=== PATIENT | male | born 1950 | race Caucasian/White ===

== ENCOUNTER 2017-07-13 11:11 | Inpatient (IN) ==
--- NOTE | 2017-07-13 11:34 | Emergency Department Note ---
SOB HPI - General Chief Complaint: Shortness of Breath/Dyspnea Stated Complaint: SOB/weight gain Time Seen by Provider: 07/13/17 11:18 Source: patient Mode of arrival: ambulatory Limitations: no limitations - History of Present Illness 66-year-old male with a history of increasing shortness of breath over the past week. He has a history of chronic venous insufficiency and ulcerations to his legs mentioned that wound care that he had some shortness of breath and they sent him to the ED.. He was admitted at [facility] on 04/17/17 they had switched him from his Lasix to spironolactone to his chronic renal failure stage II has been seen by his primary care provider Dr. Naima Ortega [place]. Was admitted on 07/18/16 for ischemic colitis, morbid obesity, stage II CKD venous insufficiency patient denies chest pain having increased edema to the lower extremities. Has had some weight gain. Patient is a poor historian - Related Data Home Medications Medication Instructions Recorded Confirmed Albuterol Sulfate [Ventolin] 2.5 mg NEB Q6 PRN 07/13/17 07/13/17 Dabigatran Etexilate Mesylate 150 mg PO BID 07/13/17 07/13/17 [Pradaxa] Gemfibrozil [Lopid] 600 mg PO BID 07/13/17 07/13/17 Liraglutide [Victoza 2-Jose] 0.6 mg SC DAILY 07/13/17 07/13/17 Lisinopril [Zestril] 40 mg PO DAILY 07/13/17 07/13/17 Metoprolol Tartrate [Lopressor] 50 mg PO BID 07/13/17 07/13/17 Nortriptyline [Pamelor] 4 capsule PO DAILY 07/13/17 07/13/17 Omeprazole 20 mg PO DAILY 07/13/17 07/13/17 Pentoxifylline [TRENtal] 400 mg PO TID 07/13/17 07/13/17 Potassium Chloride [Klor-Con 10] 10 meq PO Q6 07/13/17 07/13/17 Pravastatin Sodium [Pravachol] 80 mg PO DAILY 07/13/17 07/13/17 Spironolactone [Aldactone] 100 mg PO DAILY 07/13/17 07/13/17 Zolpidem [Ambien] 5 mg PO DAILY 07/13/17 07/13/17 amLODIPine [Norvasc] 10 mg PO DAILY 07/13/17 07/13/17 glipiZIDE [Glucotrol] 10 mg PO BID 07/13/17 07/13/17 metFORMIN HCL [Metformin HCl ER] 1,000 mg PO BID 07/13/17 07/13/17 traMADol [Ultram] 50 mg PO Q6 07/13/17 07/13/17 traZODone HCL [Desyrel] 2 tab PO DAILY 07/13/17 07/13/17 Allergies Allergy/AdvReac Type Severity Reaction Status Date / Time Amoxicillin [From Augmentin] Allergy Unknown Nausea Verified 07/13/17 11:18 clavulanic acid Allergy Unknown Nausea Verified 07/13/17 11:18 [From Augmentin] Review of Systems All systems ED: reviewed and negative except as stated. Constitutional: Denies: fever, chills Respiratory: Reports: shortness of breath, wheezes. Denies: cough, phlegm Gastrointestinal: Denies: abdominal pain Genitourinary: Denies: dysuria, frequency Musculoskeletal: Denies: back pain Integumentary: Denies: rash Neurological: Denies: headache Past Medical History - Past Medical History Medical history: Reports: atrial fibrillation, COPD, DM, hypertension Family history: Reports: CAD/[place] - Social History smoking status: Current every day smoker Packs per day: 0.5 Alcohol use: Reports: None Drug use: Reports: none Physical Exam Limitations: no limitations General appearance: alert Head: atraumatic Eye: Present: normal appearance, PERRL ENT: normal exam, normal oropharynx Neck: Present: normal inspection, full ROM Chest: Present: normal inspection, symmetric chest wall rise. Absent: tenderness Respiratory: Present: wheezes Cardiovascular: Present: regular rate, normal rhythm Abdominal: Present: soft, normal bowel sounds. Absent: distention, tenderness, guarding, rebound, rigidity Extremities: Present: normal inspection, pedal edema Back: Present: normal inspection Neurological: Present: alert, oriented X3, CN II-XII intact, motor sensory deficit Psychiatric: Present: normal affect, normal mood Skin: Present: other (Edema the lower extremities brown brawny induration) Course Vital Signs Temperature 96.2 F L 07/13/17 11:12 Pulse Rate 111 H 07/13/17 11:12 Respiratory Rate 22 07/13/17 11:12 Blood Pressure 159/91 07/13/17 11:12 Pulse Oximetry (%) 98 07/13/17 11:12 Temperature 96.2 F L 07/13/17 11:12 Pulse Rate 106 H 07/13/17 14:18 Respiratory Rate 24 H 07/13/17 13:47 Blood Pressure 159/94 07/13/17 14:18 Pulse Oximetry (%) 98 07/13/17 14:18 Shortness of Breath/Dyspnea - MDM Narrative Medical decision making narrative: chest xrays shows chf. given lasix 40 mg with good results [address] Razo consulted and pt to be admitted - Lab Data Result diagrams: 07/13/17 11:46 07/13/17 11:46 Lab Results 07/13/17 07/13/17 07/13/17 Range/Units 11:46 11:46 11:46 WBC 4.2 L (4.5-11.0) K/mcL RBC 4.85 (4.50-5.90) M/mcL Hgb 13.6 (13.5-16.5) g/dL Hct 41.3 (41.0-55.0) % MCV 85.1 (80.0-100.0) fL MCH 27.9 (26.0-34.0) pg MCHC 32.8 (31.0-36.0) g/dL RDW 17.3 H (11.5-14.5) % Plt Count 117 L (140-440) K/mcL MPV 9.3 (7.4-10.4) fL Gran % 73.0 (38.0-78.0) % Lymph % (Auto) 14.7 L (15.5-49.0) % Graham % (Auto) 7.2 (1.0-12.0) % Eos % (Auto) 4.5 (0.0-7.0) % Baso % (Auto) 0.6 (0.0-2.0) % Gran # 3.1 (1.8-8.0) K/mcL Lymph # (Auto) 0.6 L (1.5-4.8) K/mcL Graham # (Auto) 0.3 (0.1-0.9) K/mcL Eos # (Auto) 0.2 (0.0-0.7) K/mcL Baso # (Auto) 0 (0.0-0.3) K/mcL PT 13.8 (11.9-14.5) sec INR 1.1 (0.9-1.1) Sodium 139 (133-145) mmol/L Potassium 3.4 (3.3-5.1) mmol/L Chloride 99 (96-108) mmol/L Carbon Dioxide 27 (22-30) mmol/L Anion Gap 13.0 (8-16) BUN 16 (8-23) mg/dl Creatinine 0.9 (0.7-1.2) mg/dl GFR Calculation 89 Glucose 130 H (70-105) mg/dL Calcium 9.2 (8.6-10.4) mg/dl Total Bilirubin 0.8 (0.0-1.0) mg/dL AST 14 (0-37) U/l ALT 12 (0-40) U/l Alkaline Phosphatase 181 H (39-117) U/L Total Creatine Kinase 75 (24-195) IU/L CK-MB (CK-2) 4.7 (0-4.9) ng/ml Troponin T (0-0.03) ng/ml NT-Pro-B Natriuret Pep 3068.0 H (0-125) pg/ml Total Protein 6.8 (5.9-8.4) gm/dL Albumin 3.5 (3.2-5.2) gm/dL Globulin 3.3 (2.2-3.7) gm/dL Albumin/Globulin Ratio 1.1 (1.0-2.3) Urine Color Urine Appearance Urine pH (5.0-9.0) Ur Specific [place] (1.000-1.035) Urine Protein (NEG) mg/dL Urine Glucose (UA) (NEG) mg/dL Urine Ketones (NEG) mg/dL Urine Occult Blood (<0.03) mg/dL Urine Nitrate (NEG) Urine Bilirubin (NEG) mg/dL Urine Urobilinogen (NEG) mg/dL Ur Leukocyte Esterase (NEG) /uL Urine RBC (0-1) /hpf Urine WBC (0-4) /hpf Ur Squamous Epith Cells (0-4) /hpf Urine Bacteria (0) /hpf Hyaline Casts (0-2) /lpf Urine Mucus (0) /hpf Ur Culture Indicated? 07/13/17 07/13/17 Range/Units 11:46 13:07 WBC (4.5-11.0) K/mcL RBC (4.50-5.90) M/mcL Hgb (13.5-16.5) g/dL Hct (41.0-55.0) % MCV (80.0-100.0) fL MCH (26.0-34.0) pg MCHC (31.0-36.0) g/dL RDW (11.5-14.5) % Plt Count (140-440) K/mcL MPV (7.4-10.4) fL Gran % (38.0-78.0) % Lymph % (Auto) (15.5-49.0) % Graham % (Auto) (1.0-12.0) % Eos % (Auto) (0.0-7.0) % Baso % (Auto) (0.0-2.0) % Gran # (1.8-8.0) K/mcL Lymph # (Auto) (1.5-4.8) K/mcL Graham # (Auto) (0.1-0.9) K/mcL Eos # (Auto) (0.0-0.7) K/mcL Baso # (Auto) (0.0-0.3) K/mcL PT (11.9-14.5) sec INR (0.9-1.1) Sodium (133-145) mmol/L Potassium (3.3-5.1) mmol/L Chloride (96-108) mmol/L Carbon Dioxide (22-30) mmol/L Anion Gap (8-16) BUN (8-23) mg/dl Creatinine (0.7-1.2) mg/dl GFR Calculation Glucose (70-105) mg/dL Calcium (8.6-10.4) mg/dl Total Bilirubin (0.0-1.0) mg/dL AST (0-37) U/l ALT (0-40) U/l Alkaline Phosphatase (39-117) U/L Total Creatine Kinase (24-195) IU/L CK-MB (CK-2) (0-4.9) ng/ml Troponin T 0.02 (0-0.03) ng/ml NT-Pro-B Natriuret Pep (0-125) pg/ml Total Protein (5.9-8.4) gm/dL Albumin (3.2-5.2) gm/dL Globulin (2.2-3.7) gm/dL Albumin/Globulin Ratio (1.0-2.3) Urine Color Yellow Urine Appearance Clear Urine pH 6.0 (5.0-9.0) Ur Specific [place] 1.008 (1.000-1.035) Urine Protein 100 A (NEG) mg/dL Urine Glucose (UA) Negative (NEG) mg/dL Urine Ketones Neg (NEG) mg/dL Urine Occult Blood Neg (<0.03) mg/dL Urine Nitrate Neg (NEG) Urine Bilirubin Neg (NEG) mg/dL Urine Urobilinogen Neg (NEG) mg/dL Ur Leukocyte Esterase Neg (NEG) /uL Urine RBC < 1 (0-1) /hpf Urine WBC < 1 (0-4) /hpf Ur Squamous Epith Cells < 1 (0-4) /hpf Urine Bacteria 0 (0) /hpf Hyaline Casts 1 (0-2) /lpf Urine Mucus Few (0) /hpf Ur Culture Indicated? No Disposition Pt seen by [employer]ER/PA only: No Clinical Impression: CHF (congestive heart failure) Qualifiers: Heart failure type: combined systolic and diastolic Heart failure chronicity: acute on chronic Qualified Code(s): I50.43 - Acute on chronic combined systolic (congestive) and diastolic (congestive) heart failure Disposition: Xfer As Inpt ([facility]) Condition: Fair Referrals: Naima Ortega MD [Primary Care Provider] -
[2017-07-13] MEDS ORDERED: IPRATROPIUM/ALBUTEROL 3 ML AMPUL.NEB NEB ONE (11:43)
[2017-07-13] MEDS ORDERED: FUROSEMIDE 40 MG/4 ML VIAL IV ONE (11:56)
[2017-07-13 12:08] LABS: Basophils # (Auto) 0 K/mcL (0.0-0.3); Basophils % (Auto) 0.6 % (0.0-2.0); Eosinophils # (Auto) 0.2 K/mcL (0.0-0.7); Eosinophils % (Auto) 4.5 % (0.0-7.0); Lymphocytes # (Auto) 0.6 K/mcL (1.5-4.8); Lymphocytes % (Auto) 14.7 % (15.5-49.0); Mean Cell Volume 85.1 fL (80.0-100.0); Mean Corpuscular HGB Conc 32.8 g/dL (31.0-36.0); Mean Corpuscular Hemoglobin 27.9 pg (26.0-34.0); Monocytes # (Auto) 0.3 K/mcL (0.1-0.9); Monocytes % (Auto) 7.2 % (1.0-12.0); Platelet Count 117 K/mcL (140-440); RBC 4.85 M/mcL (4.50-5.90); Red Cell Distribution Width 17.3 % (11.5-14.5)
--- NOTE | 2017-07-13 12:29 | XRay Report ---
HISTORY: Reason for Exam:,wt gain , shortness of breath FINDINGS: There are widespread alveolar opacities in both lungs with the greatest involvement in the right lower lobe and around the right hilum. There is also a small right-sided pleural effusion. The heart is mildly enlarged. The pulmonary vessels are engorged. These are new finding since 07/24/14. IMPRESSION: Congestive heart failure with pulmonary edema Interpreted and Authenticated by: Petar Lyman 07/13/17
[2017-07-13 12:31] LABS: ALT/SGPT 12 U/l (0-40); Albumin 3.5 gm/dL (3.2-5.2); Albumin/Globulin Ratio 1.1 (1.0-2.3); Alkaline Phosphatase 181 U/L (39-117); Blood Urea Nitrogen 16 mg/dl (8-23); Creatine Kinase 75 IU/L (24-195); Creatine Kinase MB 4.7 ng/ml (0-4.9)
[2017-07-13 13:50] LABS: Appearance,Urine CLEAR; Bacteria,Urine 0 /hpf (0); Bilirubin,Urine NEG (NEG); Color,Urine YELLOW; Glucose,Urine (UA) NEGATIVE (NEG); Leukocyte Esterase,Urine NEG /uL (NEG); Mucus,Urine FEW /hpf (0); Protein,Urine 100 mg/dL (NEG); Specific Gravity,Urine 1.008 (1.000-1.035); Urine Blood NEG mg/dL (<0.03); Urine Hyaline Cast 1 /lpf (0-2); Urine RBC < 1 /hpf (0-1); Urine Squamous Epithelial Cell < 1 /hpf (0-4); Urine WBC < 1 /hpf (0-4); Urobilinogen,Urine NEG (NEG)
--- NOTE | 2017-07-13 15:57 | Internal Med History&Physical ---
Medical - H&P: HPI Patient information: Note initiated : 07/13/17 at 3:51 pm Service Date, if different from initiated Date: [] Patient: Len Villar a 66 y/o M admitted on for SOB/Weight Gain. Chief Complaint: [] History of present illness: Mr. Villar is a 66 year old Male with h/o morbid obesity, congestive heart failure, atrial fibrillation, diabetes, COPD, who presents to the ER today withweight gain, approximately 40 pounds over one month. Shortness of breath worsening over one week. Cough and congestion for 1 month. The patient notes that his symptoms were getting progressively worse. He was seen in the wound care clinic today and was advised to come to the ER for further evaluation and management. The patient was going to come to the ER on his own accord to according to him. The patient notes that he has a history of fluid buildup in his system him a he has been taking Lasix in the past. However, this was stopped by his doctor because he was told he did not need it anymore. The patient has gained 40 pounds over the last 1 month, has had progressive worsening in his effort tolerance. Before he could walk 1 block, now even walking for 10-15 yards will get him short of breath. the patient reports that he has been having a viral illness going on for the last 1 month, that his chest congestion, cough, yellowish sputum and some wheezing. Everyone in his family is sick from a viral illness and that has been going on for the last 1 month. In the emergency room, the patient was noted to be afebrile, saturating more than 90% on room air, but tachycardic. His labs were unremarkable except elevated BNP more than 3000. Recent chest x-ray shows pulmonary edema secondary to CHF. He was given 1 dose of Lasix and admitted to the hospital for further management The patient has chronic lower extremity wounds which are managed by wound care clinic. The patient denies any headache, has chronic dizziness, denies any difficulty in swallowing, no change in hearing, no changes in vision, shortness of breath, cough, and wheezing as outlined above. He denies any chest pain. He does not have any palpitations. He has some nausea but no vomiting or melena. No abdominal pain, no diarrhea or constipation, no urinary symptoms. He denies any acute new joint pains or new skin rashes. Denies any depression or anxiety. He does have chronic pain in the sacral region for over 2 years, which is bothering him significantly All systems: reviewed and no additional remarkable complaints except as stated ( as per HPI) Medical - H&P: PMH Medical history: diabetes , hypertension COPD Congestive heart failure Atrial fibrillation Morbid obesity Peripheral vascular disease Chronic wounds on the right lower extremity as well as abdominal pannus Hypertension hyperlipidemia Surgical history: pannus surgery Varicose vein surgery Left ankle ganglion surgery Tonsillectomy Pertinent family history: Father at the age of around 60 Social history: current smoker, half pack a day up to recently was smoking 1-2 packs a day Denies any alcohol use, denies any dictation substance use Medical - H&P: Meds Home Medications Medication Instructions Recorded Confirmed Type Albuterol Sulfate [Ventolin] 2.5 mg NEB Q6 PRN 07/13/17 07/13/17 History Dabigatran Etexilate Mesylate 150 mg PO BID 07/13/17 07/13/17 History [Pradaxa] Gemfibrozil [Lopid] 600 mg PO BID 07/13/17 07/13/17 History Liraglutide [Victoza 2-Jose] 0.6 mg SC DAILY 07/13/17 07/13/17 History Lisinopril [Zestril] 40 mg PO DAILY 07/13/17 07/13/17 History Metoprolol Tartrate [Lopressor] 50 mg PO BID 07/13/17 07/13/17 History Nortriptyline [Pamelor] 4 capsule PO DAILY 07/13/17 07/13/17 History Omeprazole 20 mg PO DAILY 07/13/17 07/13/17 History Pentoxifylline [TRENtal] 400 mg PO TID 07/13/17 07/13/17 History Potassium Chloride [Klor-Con 10] 10 meq PO Q6 07/13/17 07/13/17 History Pravastatin Sodium [Pravachol] 80 mg PO DAILY 07/13/17 07/13/17 History Spironolactone [Aldactone] 100 mg PO DAILY 07/13/17 07/13/17 History Zolpidem [Ambien] 5 mg PO DAILY 07/13/17 07/13/17 History amLODIPine [Norvasc] 10 mg PO DAILY 07/13/17 07/13/17 History glipiZIDE [Glucotrol] 10 mg PO BID 07/13/17 07/13/17 History metFORMIN HCL [Metformin HCl ER] 1,000 mg PO BID 07/13/17 07/13/17 History traMADol [Ultram] 50 mg PO Q6 07/13/17 07/13/17 History traZODone HCL [Desyrel] 2 tab PO DAILY 07/13/17 07/13/17 History Allergies Allergy/AdvReac Type Severity Reaction Status Date / Time Amoxicillin [From Augmentin] Allergy Unknown Nausea Verified 07/13/17 11:18 clavulanic acid Allergy Unknown Nausea Verified 07/13/17 11:18 [From Augmentin] Medical - H&P: Exam - Constitutional Vitals: Temp Pulse Resp BP Pulse Ox 96.2 F L 72 35 H 168/112 97 07/13/17 11:12 07/13/17 15:11 07/13/17 15:11 07/13/17 15:11 07/13/17 15:11 Exam: GENERAL: The patient is a well-developed, morbidly obese, mild distress. Is alert and oriented x3. VITAL SIGNS: Reviewed and as noted elsewhere. HEENT: Head is normocephalic and atraumatic. Extraocular muscles are intact. Pupils are equal, round, and reactive to light. Nares appeared normal. Mouth appears any without lesions. Mucous membranes are dry NECK: Normal to inspection, Supple, No lymphadenopathy or thyromegaly.short neck LUNGS: Air entry equal on both sides, bilateral basilar crackles, prolonged expiratory phase, bilateral mild expiratory wheeze. HEART: tachycardic rate, irregular rhythm, S1, S2 heard, no rubs, systolic murmur in the mitral region.. ABDOMEN: soft abdomen, very large pannus unable to determine if there is any evidence of intra-abdominal pathology EXTREMITIES:barrel-shaped. Lower extremity, hyperpigmented lower extremities, skin, right leg covered in bandage placed by the wound care clinic, I believe today. Hypertrophic skin, nails, absence of hair all indicated above. Peripheral vascular disease. Patient also has some edema, pitting +2 NEUROLOGIC: Cranial nerves II through XII are grossly intact. Motor and Sensory System Grossly Intact PSYCHIATRIC: Normal affect, Normal Mood. Appropriate Behavior. SKIN: No ulceration or wounds noted, No jaundice, No rash noted. Medical - H&P: Reslt - Labs CBC & Chem 7: 07/13/17 11:46 07/13/17 11:46 Labs: Short CBC 07/13/17 Range/Units 11:46 WBC 4.2 L (4.5-11.0) K/mcL Hgb 13.6 (13.5-16.5) g/dL Hct 41.3 (41.0-55.0) % Plt Count 117 L (140-440) K/mcL BMP 07/13/17 11:46 Sodium 139 Potassium 3.4 Chloride 99 Carbon Dioxide 27 BUN 16 Creatinine 0.9 Glucose 130 H Calcium 9.2 Cardiac Enzymes 07/13/17 07/13/17 Range/Units 11:46 11:46 Total Creatine Kinase 75 (24-195) IU/L CK-MB (CK-2) 4.7 (0-4.9) ng/ml Troponin T 0.02 (0-0.03) ng/ml Liver Function 07/13/17 Range/Units 11:46 Total Bilirubin 0.8 (0.0-1.0) mg/dL AST 14 (0-37) U/l ALT 12 (0-40) U/l Alkaline Phosphatase 181 H (39-117) U/L Albumin 3.5 (3.2-5.2) gm/dL Urine 07/13/17 Range/Units 13:07 Urine Color Yellow Urine Appearance Clear Urine pH 6.0 (5.0-9.0) Ur Specific [place] 1.008 (1.000-1.035) Urine Protein 100 A (NEG) mg/dL Urine Glucose (UA) Negative (NEG) mg/dL - EKG Data -: EKG Reviewed by Myself Medical - H&P: A/P - Narrative A/P Narrative: A/P Acute congestive heart failure: try to place a JONES, IV Lasix 60 mg 3 times a day. Fluid restriction to 1500 mL, cardiac diet, monitor urine output and daily weight, get echo. COPD exacerbation-albuterol ipratropium nebulizers every 4 hours, prednisone, oral, azithromycin. Patient is not on oxygen but will supplement oxygen. He becomes hypoxic. Obstructive sleep apnea-CPAP at home settings diabetes-old oral diabetes medications, use sliding scale insulin while inpatient, start with Lantus 10 units twice a day and titrate as needed Hypertension-hold blood pressure medication, lisinopril for now and see how Lasix affect his kidneys. Continue amlodipine. Continue metoprolol and Morbid obesity-will need aggressive measures as outpatient for weight loss Chronic wounds-wound care consulted Back pain- get pelvis x-ray to rule out any fracture DVT prophylaxis-heparin subcutaneous Cardiac and diabetic diet with fluid restriction of 1500 mL Patient is full code
[2017-07-13] MEDS ORDERED: DEXTROSE 50% 50 ML VIAL IV PRN (16:17)
[2017-07-13] MEDS ORDERED: ACETAMINOPHEN 325 MG TABLET PO PRN (16:17)
[2017-07-13] MEDS ORDERED: NALOXONE HCL 0.4 MG/ML VIAL IV PRN (16:17)
[2017-07-13] MEDS ORDERED: HEPARIN 5,000 UNIT/ML VIAL SQ SCH (16:17)
[2017-07-13] MEDS ORDERED: ONDANSETRON 4 MG/2 ML VIAL IV PRN (16:17)
[2017-07-13] MEDS ORDERED: traMADol 50 MG TABLET PO PRN (16:17)
[2017-07-13] MEDS ORDERED: POTASSIUM CHLORIDE 20 MEQ PACKET PO ONE (16:17)
[2017-07-13] MEDS ORDERED: MAGNESIUM HYDROXIDE 30 ML ORAL.SUSP PO PRN (16:17)
[2017-07-13] MEDS ORDERED: MAGNESIUM SULFATE 2 GM/50 ML BAG IV ONE (16:17)
[2017-07-13] MEDS ORDERED: AZITHROMYCIN 250 MG TABLET PO ONE (16:17)
[2017-07-13] MEDS ORDERED: DEXTROSE 31 GM ORAL.SUSP PO PRN (16:17)
[2017-07-13] MEDS: 0.9 % SODIUM CHLORIDE 10 ML SYRINGE IV SCH ×3 (16:34→21:17)
[2017-07-13] MEDS: predniSONE 20 MG TABLET PO SCH (16:44)
[2017-07-13] MEDS: FUROSEMIDE 100 MG/10 ML VIAL IV SCH ×2 (16:46→21:09)
[2017-07-13] MEDS: INSULIN LISPRO 1 UNIT/0.01 ML UNIT SQ SCH ×2 (17:13→21:10)
--- NOTE | 2017-07-13 18:07 | General Surgery Consult Note ---
History of Present Illness Patient information: Note initiated : 07/13/17 at 6:06 pm Service Date, if different from initiated Date: [] Patient: Len Villar 66 y/o M admitted on 07/13/17 for SOB/Weight Gain. Chief Complaint: [] Consult date: 07/13/17 Requesting physician: Jamar Razo (Wound Care Management) History of present illness: I saw this patient in room 119 along with Stephanie WHITEHEAD. Mr. Villar is an established patient at the wound care center. Today, he was evaluated by Pam Acuña NP . Patient was noted to be SOB and had put on over 40 lbs in one month, Clinically he was in CHF. Hence he was referred to ER and admitted to Telemetry bed for further medical management. Wounds weber, Patient has chronic post phlebitis changes and edema of both legs with pigmentation and scattered epidermal superficial ulcerations. He is currently recovering from plastic surgical procedure for panniculectomy . The surgical site is well approximated and healing well. Medications and Allergies Home Medications Medication Instructions Recorded Confirmed Type Albuterol Sulfate [Ventolin] 2.5 mg NEB Q6HP PRN 07/13/17 07/13/17 History Dabigatran Etexilate Mesylate 150 mg PO BID 07/13/17 07/13/17 History [Pradaxa] Ergocalciferol (Vitamin D2) 50,000 unit PO WEEKLY 07/13/17 07/13/17 History [Vitamin D2] Gemfibrozil [Lopid] 600 mg PO BID 07/13/17 07/13/17 History Liraglutide [Victoza 2-Jose] 0.6 mg SC DAILY 07/13/17 07/13/17 History Lisinopril [Zestril] 40 mg PO DAILY 07/13/17 07/13/17 History Metoprolol Tartrate [Lopressor] 50 mg PO BID 07/13/17 07/13/17 History Nortriptyline [Pamelor] 100 mg PO HS 07/13/17 07/13/17 History Omeprazole 20 mg PO DAILY 07/13/17 07/13/17 History Pentoxifylline [TRENtal] 400 mg PO TID 07/13/17 07/13/17 History Potassium Chloride [Klor-Con 10] 30 meq PO CCHS 07/13/17 07/13/17 History Pravastatin Sodium [Pravachol] 80 mg PO HS 07/13/17 07/13/17 History Spironolactone [Aldactone] 100 mg PO DAILY 07/13/17 07/13/17 History Zolpidem [Ambien] 5 mg PO HS 07/13/17 07/13/17 History amLODIPine [Norvasc] 10 mg PO DAILY 07/13/17 07/13/17 History glipiZIDE [Glucotrol] 10 mg PO BIDAC 07/13/17 07/13/17 History metFORMIN HCL [Metformin HCl ER] 1,000 mg PO BIDCC 07/13/17 07/13/17 History traMADol [Ultram] 50 mg PO Q6 07/13/17 07/13/17 History traZODone HCL [Desyrel] 300 mg PO DAILY 07/13/17 07/13/17 History Allergies Allergy/AdvReac Type Severity Reaction Status Date / Time Amoxicillin [From Augmentin] AdvReac Mild Nausea Verified 07/13/17 16:19 clavulanic acid AdvReac Mild Nausea Verified 07/13/17 16:19 [From Augmentin] Exam Temp Pulse Resp BP Pulse Ox 97.9 F 111 H 28 H 158/117 98 07/13/17 16:17 07/13/17 16:17 07/13/17 16:17 07/13/17 16:17 07/13/17 16:17 - General physical appearance well developed, well nourished, no distress, no pain, obese, other (Super orbid obese) - Eyes PERRL, normal ocular movement - ENT normal pinna, normal nares, normal mucosa, no congestion, other (Clear speech) - Head Head exam IM: Present: atraumatic, normal inspection, normocephalic - Neck no masses, trachea midline, no venous distension - Cardiovascular Cardiovascular exam IM: Present: normal rate and rhythm - Respiratory normal expansion, normal respiratory effort dullness: bilateral (Diminished air entry at lung bases. Morbid obesity.) - Abdomen Abdomen: Present: soft, non tender, bowel sounds - Integumentary Present: other (Post phlebitis changes both legs. Scattered epidermal ulcers Left leg . Dry. ) - Neurologic Present: normal coordination, normal sensation, other (Non focal neurological examination. Ambulates short distances. ) - Musculoskeletal Present: other (Ambulates with support . ) - Psychiatric Present: oriented to time, oriented to person, oriented to place, speech is normal, memory intact Results - Labs 07/14/17 03:55 07/14/17 03:55 Abnormal lab results 07/13/17 07/13/17 07/13/17 Range/Units 11:46 11:46 13:07 WBC 4.2 L (4.5-11.0) K/mcL RDW 17.3 H (11.5-14.5) % Plt Count 117 L (140-440) K/mcL Lymph % (Auto) 14.7 L (15.5-49.0) % Lymph # (Auto) 0.6 L (1.5-4.8) K/mcL Glucose 130 H (70-105) mg/dL Alkaline Phosphatase 181 H (39-117) U/L NT-Pro-B Natriuret Pep 3068.0 H (0-125) pg/ml Urine Protein 100 A (NEG) mg/dL Diabetes panel 07/13/17 Range/Units 11:46 Sodium 139 (133-145) mmol/L Potassium 3.4 (3.3-5.1) mmol/L Chloride 99 (96-108) mmol/L Carbon Dioxide 27 (22-30) mmol/L BUN 16 (8-23) mg/dl Creatinine 0.9 (0.7-1.2) mg/dl Glucose 130 H (70-105) mg/dL Calcium 9.2 (8.6-10.4) mg/dl AST 14 (0-37) U/l ALT 12 (0-40) U/l Alkaline Phosphatase 181 H (39-117) U/L Total Protein 6.8 (5.9-8.4) gm/dL Albumin 3.5 (3.2-5.2) gm/dL Calcium panel 07/13/17 Range/Units 11:46 Calcium 9.2 (8.6-10.4) mg/dl Albumin 3.5 (3.2-5.2) gm/dL Pituitary panel 07/13/17 Range/Units 11:46 Sodium 139 (133-145) mmol/L Potassium 3.4 (3.3-5.1) mmol/L Chloride 99 (96-108) mmol/L Carbon Dioxide 27 (22-30) mmol/L BUN 16 (8-23) mg/dl Creatinine 0.9 (0.7-1.2) mg/dl Glucose 130 H (70-105) mg/dL Calcium 9.2 (8.6-10.4) mg/dl Adrenal panel 07/13/17 Range/Units 11:46 Sodium 139 (133-145) mmol/L Potassium 3.4 (3.3-5.1) mmol/L Chloride 99 (96-108) mmol/L Carbon Dioxide 27 (22-30) mmol/L BUN 16 (8-23) mg/dl Creatinine 0.9 (0.7-1.2) mg/dl Glucose 130 H (70-105) mg/dL Calcium 9.2 (8.6-10.4) mg/dl Total Bilirubin 0.8 (0.0-1.0) mg/dL AST 14 (0-37) U/l ALT 12 (0-40) U/l Alkaline Phosphatase 181 H (39-117) U/L Total Protein 6.8 (5.9-8.4) gm/dL Albumin 3.5 (3.2-5.2) gm/dL All other labs normal. Assessment and Plan (1) Stasis dermatitis of both legs Status: Chronic Priority: Low Comment: Continue on going current care. Daily cleansing with chlorhexidene solutiona and topical application of skin repair creme. Cover with Curt wraps. (2) CHF (congestive heart failure) Status: Acute Priority: Medium Comment: Management as per hospitalist physician. Qualifiers: Heart failure type: combined systolic and diastolic Heart failure chronicity: acute on chronic Qualified Code(s): I50.43 - Acute on chronic combined systolic (congestive) and diastolic (congestive) heart failure
[2017-07-13] MEDS: IPRATROPIUM/ALBUTEROL 3 ML AMPUL.NEB NEB SCH ×2 (19:30→22:46)
[2017-07-13] MEDS: NORTRIPTYLINE 25 MG CAPSULE PO SCH (21:07)
[2017-07-13] MEDS: DABIGATRAN ETEXILATE MESYLATE 75 MG CAPSULE PO SCH (21:07)
[2017-07-13] MEDS: traZODone HCL 150 MG TABLET PO PRN (21:07)
[2017-07-13] MEDS: ATORVASTATIN 20 MG TABLET PO SCH (21:07)
[2017-07-13] MEDS: oxyCODONE/APAP 5/325MG TABLET PO PRN (21:08)
[2017-07-13] MEDS: DOCUSATE SODIUM 100 MG CAPSULE PO SCH (21:08)
[2017-07-13] MEDS: PENTOXIFYLLINE 400 MG TABLET PO SCH (21:08)
[2017-07-13] MEDS: GEMFIBROZIL 600 MG TABLET PO SCH (21:09)
[2017-07-13] MEDS: METOPROLOL TARTRATE 50 MG TABLET PO SCH (21:09)
[2017-07-13] MEDS: INSULIN GLARGINE, HUMAN 1 UNIT/0.01 ML SQ SCH (21:10)
[2017-07-13] MEDS: POTASSIUM CHLORIDE 10 MEQ TABLET PO SCH (21:17)
[2017-07-14] MEDS: oxyCODONE/APAP 5/325MG TABLET PO PRN ×2 (03:59→19:03)
[2017-07-14] MEDS: IPRATROPIUM/ALBUTEROL 3 ML AMPUL.NEB NEB SCH ×6 (04:03→22:44)
[2017-07-14] MEDS: FUROSEMIDE 100 MG/10 ML VIAL IV SCH ×4 (05:18→22:30)
[2017-07-14] MEDS: 0.9 % SODIUM CHLORIDE 10 ML SYRINGE IV SCH ×3 (05:18→22:15)
[2017-07-14 06:18] LABS: Basophils # (Auto) 0 K/mcL (0.0-0.3); Basophils % (Auto) 0.2 % (0.0-2.0); Eosinophils # (Auto) 0.1 K/mcL (0.0-0.7); Eosinophils % (Auto) 1.3 % (0.0-7.0); Granulocytes % (Auto) 76.3 % (38.0-78.0); Lymphocytes # (Auto) 0.7 K/mcL (1.5-4.8); Lymphocytes % (Auto) 17.6 % (15.5-49.0); Mean Cell Volume 85.2 fL (80.0-100.0); Mean Corpuscular HGB Conc 32.3 g/dL (31.0-36.0); Mean Corpuscular Hemoglobin 27.5 pg (26.0-34.0); Monocytes # (Auto) 0.2 K/mcL (0.1-0.9); Monocytes % (Auto) 4.6 % (1.0-12.0); Platelet Count 132 K/mcL (140-440); RBC 4.83 M/mcL (4.50-5.90); Red Cell Distribution Width 17.6 % (11.5-14.5)
[2017-07-14 06:19] LABS: ALT/SGPT 12 U/l (0-40); Albumin 3.4 gm/dL (3.2-5.2); Alkaline Phosphatase 182 U/L (39-117); Bilirubin,Direct 0.2 mg/dL (0.0-0.3); Blood Urea Nitrogen 19 mg/dl (8-23); Gamma Glutamyl Transpeptidase 86 U/L (8-61); Uric Acid 7.5 mg/dL (2.5-8.0)
[2017-07-14] MEDS: OMEPRAZOLE 20 MG CAPSULE PO SCH (07:01)
[2017-07-14] MEDS: INSULIN LISPRO 1 UNIT/0.01 ML UNIT SQ SCH ×4 (07:03→20:27)
[2017-07-14] MEDS: predniSONE 20 MG TABLET PO SCH (08:32)
[2017-07-14] MEDS: POTASSIUM CHLORIDE 10 MEQ TABLET PO SCH ×4 (08:32→20:35)
--- NOTE | 2017-07-14 08:45 | XRay Report ---
HISTORY: Reason for Exam:pelvic pain. , Multiple falls over the years FINDINGS: There is no evidence of a pelvic or hip fracture. The lower sacrum and coccyx are obscured by moderate amount of overlying stool in the rectum. Disc space narrowing is present at L5-S1. There are spurs along the lateral margins of both left and right iliac crest and the left greater trochanter. The SI joints and symphysis pubis appear normal. Joint spaces in both hips are normal in width and alignment. There is a solitary mildly distended segment of small bowel in the left upper pelvis. It measures 4.5 cm. There are calcified plaques in the iliac and femoral arteries. IMPRESSION: No evidence of a fracture Nonspecific small bowel pattern Interpreted and Authenticated by: Petra Lyman 07/14/17
[2017-07-14] MEDS: DOCUSATE SODIUM 100 MG CAPSULE PO SCH ×2 (09:58→20:28)
[2017-07-14] MEDS: AZITHROMYCIN 250 MG TABLET PO SCH (09:58)
[2017-07-14] MEDS: METOPROLOL TARTRATE 50 MG TABLET PO SCH ×2 (09:58→20:29)
[2017-07-14] MEDS: SPIRONOLACTONE 25 MG TABLET PO SCH (09:59)
[2017-07-14] MEDS: DABIGATRAN ETEXILATE MESYLATE 75 MG CAPSULE PO SCH ×2 (09:59→20:35)
[2017-07-14] MEDS: PENTOXIFYLLINE 400 MG TABLET PO SCH ×3 (10:00→20:31)
[2017-07-14] MEDS: INSULIN GLARGINE, HUMAN 1 UNIT/0.01 ML SQ SCH ×2 (10:00→20:27)
[2017-07-14] MEDS: amLODIPine 10 MG TABLET PO SCH (10:00)
[2017-07-14] MEDS: GEMFIBROZIL 600 MG TABLET PO SCH ×2 (10:01→20:29)
[2017-07-14] MEDS ORDERED: MAGNESIUM SULFATE 2 GM/50 ML BAG IV ONE (13:04)
--- NOTE | 2017-07-14 17:54 | Internal Med Progress Note ---
Medical - PN: Subj Patient information: Note initiated : 07/14/17 at 5:52 pm Service Date, if different from initiated Date: [] Patient: Lne Villar 66 y/o M admitted on 07/13/17 for SOB, Weight Gain/ Congestive Heart Failure. Chief Complaint: [] Interval history: Mr. Villar is a 66 year old Male with h/o morbid obesity, congestive heart failure, atrial fibrillation, diabetes, COPD, who presents to the ER today withweight gain, approximately 40 pounds over one month. Shortness of breath worsening over one week. Cough and congestion for 1 month. The patient notes that his symptoms were getting progressively worse. He was seen in the wound care clinic today and was advised to come to the ER for further evaluation and management. The patient was going to come to the ER on his own accord to according to him. The patient notes that he has a history of fluid buildup in his system him a he has been taking Lasix in the past. However, this was stopped by his doctor because he was told he did not need it anymore. The patient has gained 40 pounds over the last 1 month, has had progressive worsening in his effort tolerance. Before he could walk 1 block, now even walking for 10-15 yards will get him short of breath. the patient reports that he has been having a viral illness going on for the last 1 month, that his chest congestion, cough, yellowish sputum and some wheezing. Everyone in his family is sick from a viral illness and that has been going on for the last 1 month. In the emergency room, the patient was noted to be afebrile, saturating more than 90% on room air, but tachycardic. His labs were unremarkable except elevated BNP more than 3000. Recent chest x-ray shows pulmonary edema secondary to CHF. He was given 1 dose of Lasix and admitted to the hospital for further management The patient has chronic lower extremity wounds which are managed by wound care clinic. The patient denies any headache, has chronic dizziness, denies any difficulty in swallowing, no change in hearing, no changes in vision, shortness of breath, cough, and wheezing as outlined above. He denies any chest pain. He does not have any palpitations. He has some nausea but no vomiting or melena. No abdominal pain, no diarrhea or constipation, no urinary symptoms. He denies any acute new joint pains or new skin rashes. Denies any depression or anxiety. He does have chronic pain in the sacral region for over 2 years, which is bothering him significantly jul 14 patient seen and examined, no acute overnight events, patient feeling better, shortness of breath improved, He was sitting comfortably during my exam Echo done Mild LV dilatation, LV function and moderate to severely reduced. Mild to moderate LVH, RV mildly dilated, a mildly dilated, mild to moderate MR, Moderate to severe pulmonary hypertension (50-70) Pertinent ROS: Denies headache, dizziness Denies chest pain, palpitations improving shortness of breath Denies abdominal pain, nausea or vomiting. - Constitutional Vitals: Vital Signs Temp Pulse Resp BP Pulse Ox 97.2 F 96 H 24 H 117/81 96 07/14/17 15:40 07/14/17 15:25 07/14/17 15:40 07/14/17 15:40 07/14/17 15:40 Period Temp Pulse Resp BP Sys/Burks Pulse Ox Last 24 Hr 97.2 F-98.2 F 72-113 18-28 117-153/81-112 95-97 Intake and Output 07/14/17 07/14/17 07/14/17 05:59 13:59 21:59 Intake Total 1080 / 1080 1100 / 1100 170 / 170 Output Total 2700 / 2700 2250 / 2250 1125 / 1125 Balance -1620 / -1620 -1150 / -1150 -955 / -955 Weight 370 lb Patient Weight 07/15/17 05:59 Weight 370 lb Intake & Output: Intake & Output 07/14/17 07/14/17 07/14/17 05:59 13:59 21:59 Intake Total 1080 / 1080 1100 / 1100 170 / 170 Output Total 2700 / 2700 2250 / 2250 1125 / 1125 Balance -1620 / -1620 -1150 / -1150 -955 / -955 Weight 370 lb Intake: IV 50 / 50 Oral 1080 / 1080 1100 / 1100 120 / 120 Output: Void Amount 2700 / 2700 2250 / 2250 1125 / 1125 Other: Meal Lunch Breakfast Percent of Meal Consumed 100% 100% Feeding Ability Independent Independent # Voids 1 # Bowel Movements 0 Exam: Constitutional; Afebrile, cooperative, alert, not in distress. morbidly obese Eyes- No icterus, , No periorbital swelling Ears- Ext ear normal, hearing normal to conversation. Neck- Midline trachea, supple Respiratory system: Air Entry equal on both sides, bibasilar crackles, improved from yesterday. CVS- Rate rhythm regular, S1,S2 heard, distant heart sounds. Abdomen- Soft nontender, large pannus. 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 Medical - PN: Obj Da - Labs CBC & Chem 7: 07/14/17 03:55 07/14/17 03:55 Labs: Abnormal Lab Results 07/14/17 07/14/17 07/13/17 03:55 03:55 13:07 WBC 4.2 L Hgb 13.3 L RDW 17.6 H Plt Count 132 L Lymph % (Auto) Lymph # (Auto) 0.7 L Anion Gap 18.0 H Glucose 143 H GGT 86 H Alkaline Phosphatase 182 H Lactate Dehydrogenase 271 H NT-Pro-B Natriuret Pep Urine Protein 100 A 07/13/17 07/13/17 11:46 11:46 WBC 4.2 L Hgb RDW 17.3 H Plt Count 117 L Lymph % (Auto) 14.7 L Lymph # (Auto) 0.6 L Anion Gap Glucose 130 H GGT Alkaline Phosphatase 181 H Lactate Dehydrogenase NT-Pro-B Natriuret Pep 3068.0 H Urine Protein Meds: Medications Acetaminophen (Tylenol) 650 mg PO Q6HP PRN PRN Reason: PAIN/FEVER > 101 Albuterol/Ipratropium (Duoneb) 3 ml NEB Q4HRT [facility] Last Admin: 07/14/17 15:24 Dose: 3 ml Amlodipine Besylate (Norvasc) 10 mg PO DAILY [facility] Last Admin: 07/14/17 10:00 Dose: 10 mg Atorvastatin Calcium (Lipitor) 20 mg PO HS [facility] Last Admin: 07/13/17 21:07 Dose: 20 mg Azithromycin (Zithromax) 250 mg PO DAILY [facility] Stop: 07/17/17 09:01 Last Admin: 07/14/17 09:58 Dose: 250 mg Dabigatran (Pradaxa) 150 mg PO BID [facility] Last Admin: 07/14/17 09:59 Dose: 150 mg Dextrose (Dextrose 50%) 0 ml IV UD PRN PRN Reason: Hypoglycemia Diagnostic Test (Pha) (Accu-Chek) 1 each FS ACHS [facility] Last Admin: 07/14/17 17:20 Dose: 1 each Docusate Sodium (Colace) 100 mg PO BID [facility] Last Admin: 07/14/17 09:58 Dose: 100 mg Furosemide (Lasix) 60 mg IV Q8 [facility] Last Admin: 07/14/17 13:36 Dose: 60 mg Gemfibrozil (Lopid) 600 mg PO BID [facility] Last Admin: 07/14/17 10:01 Dose: 600 mg Glucose (Insta-Glucose) 15 gm PO PRN PRN PRN Reason: Hypoglycemia Insulin Glargine (Lantus) 10 unit SQ BID [facility] Last Admin: 07/14/17 10:00 Dose: 10 unit Insulin Human Lispro (Humalog) 0 unit SQ [facility] PRN Reason: Protocol Last Admin: 07/14/17 17:23 Dose: 2 unit Magnesium Hydroxide (Milk Of Magnesia) 30 ml PO DAILYP PRN PRN Reason: Constipation Metoprolol Tartrate (Lopressor) 50 mg PO BID [facility] Last Admin: 07/14/17 09:58 Dose: 50 mg Naloxone HCl (Narcan) 0.1 mg IV Q2MIN PRN PRN Reason: Opiate Reversal Nortriptyline HCl (Pamelor) 100 mg PO HS [facility] Last Admin: 07/13/17 21:07 Dose: 100 mg Omeprazole (Prilosec) 20 mg PO ACB [facility] Last Admin: 07/14/17 07:01 Dose: 20 mg Ondansetron HCl (Zofran) 4 mg IV Q4HP PRN PRN Reason: Nausea And Vomiting Oxycodone/Acetaminophen (Percocet 5-325 Mg) 1 tab PO Q4HP PRN PRN Reason: PAIN LEVEL 3-6 Last Admin: 07/14/17 03:59 Dose: 1 tab Pentoxifylline (Trental) 400 mg PO TID [facility] Last Admin: 07/14/17 15:00 Dose: 400 mg Potassium Chloride (Kdur) 30 meq PO CCHS [facility] Last Admin: 07/14/17 17:23 Dose: 30 meq Prednisone (Prednisone) 60 mg PO QAMCC [facility] Last Admin: 07/14/17 08:32 Dose: 60 mg Sodium Chloride (Saline Flush) 10 ml IV Q8 [facility] Last Admin: 07/14/17 13:36 Dose: 10 ml Spironolactone (Aldactone) 100 mg PO DAILY [facility] Last Admin: 07/14/17 09:59 Dose: 100 mg Tramadol HCl (Ultram) 50 mg PO Q6HP PRN PRN Reason: Pain Trazodone HCl (Desyrel) 300 mg PO HSP PRN PRN Reason: Insomnia Last Admin: 07/13/17 21:07 Dose: 300 mg Zolpidem Tartrate (Ambien) 5 mg PO HSP PRN PRN Reason: Insomnia Medical - PN: A/P - Time Spent With Patient Total time spent is greater than 50% in coordination of care (as documented) at patient's floor/unit and/or counseling patient: - Narrative A/P Narrative: A/P Acute congestive systolic heart failure: clinically improving, IV Lasix 60 mg 3 times a day. Fluid restriction to 1500 mL, patient used to take 240mg lasix in AM and 160 in PM, which was stopped as it was not needed. LV function is mod to severely reduced. COPD exacerbation-albuterol ipratropium nebulizers every 4 hours, prednisone, oral, azithromycin. no wheezing today. Obstructive sleep apnea-CPAP at home settings diabetes-old oral diabetes medications, use sliding scale insulin while inpatient, start with Lantus 10 units twice a day and titrate as needed, glucose ok so far Hypertension-hold blood pressure medication, lisinopril for now and see how Lasix affect his kidneys. Continue amlodipine. Continue metoprolol. Morbid obesity-will need aggressive measures as outpatient for weight loss Chronic wounds-wound care consulted, appreciate their input. Back pain-get pelvis x-ray is neg DVT prophylaxis-heparin subcutaneous Cardiac and diabetic diet with fluid restriction of 1500 mL Patient is full code Medical - PN: Qual - Stroke Symptom Onset Unknown: No - VTE Deep Vein Thrombosis/Pulmonary Embolism Present on Admission: No
[2017-07-14] MEDS: NORTRIPTYLINE 25 MG CAPSULE PO SCH (20:28)
[2017-07-14] MEDS: ATORVASTATIN 20 MG TABLET PO SCH (20:35)
[2017-07-15] MEDS: ZOLPIDEM 5 MG TABLET PO PRN ×2 (00:04→23:32)
[2017-07-15] MEDS: traZODone HCL 150 MG TABLET PO PRN ×2 (00:04→23:32)
[2017-07-15] MEDS: IPRATROPIUM/ALBUTEROL 3 ML AMPUL.NEB NEB SCH ×6 (03:27→23:11)
[2017-07-15] MEDS: FUROSEMIDE 100 MG/10 ML VIAL IV SCH ×3 (05:16→21:49)
[2017-07-15] MEDS: 0.9 % SODIUM CHLORIDE 10 ML SYRINGE IV SCH ×3 (05:17→21:49)
[2017-07-15 06:18] LABS: Basophils # (Auto) 0 K/mcL (0.0-0.3); Basophils % (Auto) 0.4 % (0.0-2.0); Eosinophils # (Auto) 0.2 K/mcL (0.0-0.7); Eosinophils % (Auto) 2.6 % (0.0-7.0); Granulocytes % (Auto) 64.1 % (38.0-78.0); Lymphocytes # (Auto) 1.7 K/mcL (1.5-4.8); Lymphocytes % (Auto) 23.9 % (15.5-49.0); Mean Cell Volume 86.7 fL (80.0-100.0); Mean Corpuscular HGB Conc 32.4 g/dL (31.0-36.0); Mean Corpuscular Hemoglobin 28.1 pg (26.0-34.0); Monocytes # (Auto) 0.6 K/mcL (0.1-0.9); Platelet Count 160 K/mcL (140-440); RBC 5.07 M/mcL (4.50-5.90); Red Cell Distribution Width 18.6 % (11.5-14.5)
[2017-07-15 06:25] LABS: ALT/SGPT 15 U/l (0-40); Albumin 3.7 gm/dL (3.2-5.2); Albumin/Globulin Ratio 1.1 (1.0-2.3); Alkaline Phosphatase 192 U/L (39-117); Bilirubin,Direct 0.2 mg/dL (0.0-0.3); Blood Urea Nitrogen 22 mg/dl (8-23); Gamma Glutamyl Transpeptidase 99 U/L (8-61); Uric Acid 7.8 mg/dL (2.5-8.0)
[2017-07-15] MEDS: OMEPRAZOLE 20 MG CAPSULE PO SCH (06:41)
[2017-07-15] MEDS: INSULIN LISPRO 1 UNIT/0.01 ML UNIT SQ SCH ×4 (06:43→21:07)
[2017-07-15] MEDS: POTASSIUM CHLORIDE 10 MEQ TABLET PO SCH ×4 (08:14→21:04)
[2017-07-15] MEDS: GEMFIBROZIL 600 MG TABLET PO SCH ×2 (08:15→21:06)
[2017-07-15] MEDS: PENTOXIFYLLINE 400 MG TABLET PO SCH ×3 (08:15→21:06)
[2017-07-15] MEDS: predniSONE 20 MG TABLET PO SCH (08:15)
[2017-07-15] MEDS: DABIGATRAN ETEXILATE MESYLATE 75 MG CAPSULE PO SCH ×2 (08:15→21:06)
[2017-07-15] MEDS: DOCUSATE SODIUM 100 MG CAPSULE PO SCH ×2 (08:16→21:06)
[2017-07-15] MEDS: SPIRONOLACTONE 25 MG TABLET PO SCH (08:16)
[2017-07-15] MEDS: amLODIPine 10 MG TABLET PO SCH (08:16)
[2017-07-15] MEDS: METOPROLOL TARTRATE 50 MG TABLET PO SCH ×2 (08:16→21:04)
[2017-07-15] MEDS: AZITHROMYCIN 250 MG TABLET PO SCH (08:16)
[2017-07-15] MEDS: INSULIN GLARGINE, HUMAN 1 UNIT/0.01 ML SQ SCH ×2 (08:24→21:07)
--- NOTE | 2017-07-15 13:52 | XRay Report ---
HISTORY: Reason for Exam:chf with shortness of breath FINDINGS: The congestive heart failure and pulmonary edema have improved but not resolved since 07/13/17. There is still edema around the right hilum extending into the right lower lobe. There are small bilateral subpulmonic pleural effusions. Heart size is within normal limits and has diminished in size since chest. IMPRESSION: Improving congestive heart failure and pulmonary edema Interpreted and Authenticated by: Petar Lyman 07/15/17
--- NOTE | 2017-07-15 14:57 | Internal Med Progress Note ---
Medical - PN: Subj Patient information: Note initiated : 07/15/17 at 2:54 pm Service Date, if different from initiated Date: [] Patient: Len Villar a 66 y/o M admitted on 07/13/17 for SOB, Weight Gain/ Congestive Heart Failure. Chief Complaint: [] Interval history: Mr. Villar is a 66 year old Male with h/o morbid obesity, congestive heart failure, atrial fibrillation, diabetes, COPD, who presents to the ER today withweight gain, approximately 40 pounds over one month. Shortness of breath worsening over one week. Cough and congestion for 1 month. The patient notes that his symptoms were getting progressively worse. He was seen in the wound care clinic today and was advised to come to the ER for further evaluation and management. The patient was going to come to the ER on his own accord to according to him. The patient notes that he has a history of fluid buildup in his system him a he has been taking Lasix in the past. However, this was stopped by his doctor because he was told he did not need it anymore. The patient has gained 40 pounds over the last 1 month, has had progressive worsening in his effort tolerance. Before he could walk 1 block, now even walking for 10-15 yards will get him short of breath. the patient reports that he has been having a viral illness going on for the last 1 month, that his chest congestion, cough, yellowish sputum and some wheezing. Everyone in his family is sick from a viral illness and that has been going on for the last 1 month. In the emergency room, the patient was noted to be afebrile, saturating more than 90% on room air, but tachycardic. His labs were unremarkable except elevated BNP more than 3000. Recent chest x-ray shows pulmonary edema secondary to CHF. He was given 1 dose of Lasix and admitted to the hospital for further management The patient has chronic lower extremity wounds which are managed by wound care clinic. The patient denies any headache, has chronic dizziness, denies any difficulty in swallowing, no change in hearing, no changes in vision, shortness of breath, cough, and wheezing as outlined above. He denies any chest pain. He does not have any palpitations. He has some nausea but no vomiting or melena. No abdominal pain, no diarrhea or constipation, no urinary symptoms. He denies any acute new joint pains or new skin rashes. Denies any depression or anxiety. He does have chronic pain in the sacral region for over 2 years, which is bothering him significantly jul 14 patient seen and examined, no acute overnight events, patient feeling better, shortness of breath improved, He was sitting comfortably during my exam Echo done Mild LV dilatation, LV function and moderate to severely reduced. Mild to moderate LVH, RV mildly dilated, a mildly dilated, mild to moderate MR, Moderate to severe pulmonary hypertension (50-70) Jul 15 Pt seen examined, no acute overnight events pt doing well, diuresing well has no more sob x ray shows improving chf plan to continue with iV lasix x 1 more day to continue with diuresis Pertinent ROS: Denies headache, dizziness Denies chest pain, palpitations Denies cough, much improved shortness of breath Denies abdominal pain, nausea or vomiting. - Constitutional Vitals: Vital Signs Temp Pulse Resp BP Pulse Ox 96.9 F L 78 20 115/100 100 07/15/17 12:17 07/15/17 11:40 07/15/17 12:17 07/15/17 12:17 07/15/17 12:17 Period Temp Pulse Resp BP Sys/Burks Pulse Ox Last 24 Hr 96.9 F-97.9 F 78-96 - 106-146/81-102 93-100 Intake and Output 07/15/17 07/15/17 07/15/17 05:59 13:59 21:59 Intake Total 360 / 360 780 / 780 90 / 90 Output Total 2300 / 2300 2124 / 2124 150 / 150 Balance -1940 / -1940 -1345 / -1345 -60 / -60 Intake & Output: Intake & Output 07/15/17 07/15/17 07/15/17 05:59 13:59 21:59 Intake Total 360 / 360 780 / 780 90 / 90 Output Total 2300 / 2300 2124 / 2124 150 / 150 Balance -1940 / -1940 -1345 / -1345 -60 / -60 Intake: Oral 360 / 360 780 / 780 90 / 90 Output: Void Amount 2300 / 2300 2125 / 2125 150 / 150 Other: Meal Lunch Percent of Meal Consumed 100% Feeding Ability Independent # Voids 1 1 Exam: Constitutional; Afebrile, cooperative, alert, not in distress. morbid obesity Eyes- No icterus, , No periorbital swelling Ears- Ext ear normal, hearing normal to conversation. Neck- Midline trachea, supple Respiratory system: Air Entry equal on both sides, No crackles or wheezing, no rhonchi. morbid obesity limits good exam CVS- Rate rhythm regular, S1,S2 heard, no gallop, no rub. Abdomen- Soft nontender abdomen, no organomegaly, no tenderness, no guarding or rigidity, very large pannus. 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 Medical - PN: Obj Da - Labs CBC & Chem 7: 07/15/17 03:30 07/15/17 03:30 Labs: Abnormal Lab Results 07/15/17 07/15/17 07/14/17 03:30 03:30 03:55 WBC Hgb RDW 18.6 H Plt Count Lymph % (Auto) Lymph # (Auto) Carbon Dioxide 31 H Anion Gap 18.0 H Glucose 143 H GGT 99 H 86 H Alkaline Phosphatase 192 H 182 H Lactate Dehydrogenase 271 H NT-Pro-B Natriuret Pep Urine Protein 07/14/17 07/13/17 07/13/17 03:55 13:07 11:46 WBC 4.2 L Hgb 13.3 L RDW 17.6 H Plt Count 132 L Lymph % (Auto) Lymph # (Auto) 0.7 L Carbon Dioxide Anion Gap Glucose 130 H GGT Alkaline Phosphatase 181 H Lactate Dehydrogenase NT-Pro-B Natriuret Pep 3068.0 H Urine Protein 100 A 07/13/17 11:46 WBC 4.2 L Hgb RDW 17.3 H Plt Count 117 L Lymph % (Auto) 14.7 L Lymph # (Auto) 0.6 L Carbon Dioxide Anion Gap Glucose GGT Alkaline Phosphatase Lactate Dehydrogenase NT-Pro-B Natriuret Pep Urine Protein Meds: Medications Acetaminophen (Tylenol) 650 mg PO Q6HP PRN PRN Reason: PAIN/FEVER > 101 Albuterol/Ipratropium (Duoneb) 3 ml NEB Q4HRT [facility] Last Admin: 07/15/17 11:40 Dose: 3 ml Amlodipine Besylate (Norvasc) 10 mg PO DAILY [facility] Last Admin: 07/15/17 08:16 Dose: 10 mg Atorvastatin Calcium (Lipitor) 20 mg PO HS [facility] Last Admin: 07/14/17 20:35 Dose: 20 mg Azithromycin (Zithromax) 250 mg PO DAILY [facility] Stop: 07/17/17 09:01 Last Admin: 07/15/17 08:16 Dose: 250 mg Dabigatran (Pradaxa) 150 mg PO BID [facility] Last Admin: 07/15/17 08:15 Dose: 150 mg Dextrose (Dextrose 50%) 0 ml IV UD PRN PRN Reason: Hypoglycemia Diagnostic Test (Pha) (Accu-Chek) 1 each FS [facility] Last Admin: 07/15/17 11:40 Dose: 1 each Docusate Sodium (Colace) 100 mg PO BID [facility] Last Admin: 07/15/17 08:16 Dose: 100 mg Furosemide (Lasix) 60 mg IV Q8 [facility] Last Admin: 07/15/17 14:28 Dose: 60 mg Gemfibrozil (Lopid) 600 mg PO BID [facility] Last Admin: 07/15/17 08:15 Dose: 600 mg Glucose (Insta-Glucose) 15 gm PO PRN PRN PRN Reason: Hypoglycemia Insulin Glargine (Lantus) 10 unit SQ BID [facility] Last Admin: 07/15/17 08:24 Dose: 10 unit Insulin Human Lispro (Humalog) 0 unit SQ [facility] PRN Reason: Protocol Last Admin: 07/15/17 11:41 Dose: Not Given Magnesium Hydroxide (Milk Of Magnesia) 30 ml PO DAILYP PRN PRN Reason: Constipation Metoprolol Tartrate (Lopressor) 50 mg PO BID [facility] Last Admin: 07/15/17 08:16 Dose: 50 mg Naloxone HCl (Narcan) 0.1 mg IV Q2MIN PRN PRN Reason: Opiate Reversal Nortriptyline HCl (Pamelor) 100 mg PO [facility] Last Admin: 07/14/17 20:28 Dose: 100 mg Omeprazole (Prilosec) 20 mg PO ACB [facility] Last Admin: 07/15/17 06:41 Dose: 20 mg Ondansetron HCl (Zofran) 4 mg IV Q4HP PRN PRN Reason: Nausea And Vomiting Oxycodone/Acetaminophen (Percocet 5-325 Mg) 1 tab PO Q4HP PRN PRN Reason: PAIN LEVEL 3-6 Last Admin: 07/14/17 19:03 Dose: 1 tab Pentoxifylline (Trental) 400 mg PO TID [facility] Last Admin: 07/15/17 14:30 Dose: 400 mg Potassium Chloride (Kdur) 30 meq PO CCHS [facility] Last Admin: 07/15/17 12:12 Dose: 30 meq Prednisone (Prednisone) 60 mg PO QAMCC [facility] Last Admin: 07/15/17 08:15 Dose: 60 mg Sodium Chloride (Saline Flush) 10 ml IV Q8 [facility] Last Admin: 07/15/17 14:28 Dose: 10 ml Spironolactone (Aldactone) 100 mg PO DAILY [facility] Last Admin: 07/15/17 08:16 Dose: 100 mg Tramadol HCl (Ultram) 50 mg PO Q6HP PRN PRN Reason: Pain Trazodone HCl (Desyrel) 300 mg PO HSP PRN PRN Reason: Insomnia Last Admin: 07/15/17 00:04 Dose: 300 mg Zolpidem Tartrate (Ambien) 5 mg PO HSP PRN PRN Reason: Insomnia Last Admin: 07/15/17 00:04 Dose: 5 mg Medical - PN: A/P - Time Spent With Patient Total time spent is greater than 50% in coordination of care (as documented) at patient's floor/unit and/or counseling patient: - Narrative A/P Narrative: A/P Acute congestive systolic heart failure: clinically improving, IV Lasix 60 mg 3 times a day. Fluid restriction to 1500 mL, patient used to take 240mg lasix in AM and 160 in PM, which was stopped as it was not needed. LV function is mod to severely reduced. reviewed with him need to follow up with cardiology, may need AICD in future. COPD exacerbation-albuterol ipratropium nebulizers every 4 hours, prednisone, oral, azithromycin. no wheezing today. Obstructive sleep apnea-CPAP at home settings diabetes-old oral diabetes medications, use sliding scale insulin while inpatient, start with Lantus 10 units twice a day and titrate as needed, glucose ok so far Hypertension-hold blood pressure medication, lisinopril for now and see how Lasix affect his kidneys. Continue amlodipine. Continue metoprolol. Morbid obesity-will need aggressive measures as outpatient for weight loss Chronic wounds-wound care consulted, appreciate their input. Back pain-get pelvis x-ray is neg DVT prophylaxis-heparin subcutaneous Cardiac and diabetic diet with fluid restriction of 1500 mL Patient is full code Medical - PN: Qual - Stroke Symptom Onset Unknown: No - VTE Deep Vein Thrombosis/Pulmonary Embolism Present on Admission: No
[2017-07-15] MEDS: NORTRIPTYLINE 25 MG CAPSULE PO SCH (21:05)
[2017-07-15] MEDS: ATORVASTATIN 20 MG TABLET PO SCH (21:06)
[2017-07-16] MEDS: IPRATROPIUM/ALBUTEROL 3 ML AMPUL.NEB NEB SCH ×3 (02:23→11:53)
[2017-07-16 05:53] LABS: Basophils # (Auto) 0 K/mcL (0.0-0.3); Basophils % (Auto) 0.4 % (0.0-2.0); Eosinophils # (Auto) 0.1 K/mcL (0.0-0.7); Eosinophils % (Auto) 1.7 % (0.0-7.0); Lymphocytes # (Auto) 1.4 K/mcL (1.5-4.8); Lymphocytes % (Auto) 20.5 % (15.5-49.0); Mean Cell Volume 87.4 fL (80.0-100.0); Mean Corpuscular HGB Conc 31.7 g/dL (31.0-36.0); Mean Corpuscular Hemoglobin 27.7 pg (26.0-34.0); Monocytes # (Auto) 0.6 K/mcL (0.1-0.9); Monocytes % (Auto) 8.4 % (1.0-12.0); Platelet Count 155 K/mcL (140-440); RBC 5.26 M/mcL (4.50-5.90); Red Cell Distribution Width 18.5 % (11.5-14.5)
[2017-07-16] MEDS: FUROSEMIDE 100 MG/10 ML VIAL IV SCH (05:54)
[2017-07-16] MEDS: 0.9 % SODIUM CHLORIDE 10 ML SYRINGE IV SCH (05:55)
[2017-07-16 06:35] LABS: ALT/SGPT 16 U/l (0-40); Albumin 3.9 gm/dL (3.2-5.2); Albumin/Globulin Ratio 1.1 (1.0-2.3); Alkaline Phosphatase 191 U/L (39-117); Bilirubin,Direct 0.2 mg/dL (0.0-0.3); Blood Urea Nitrogen 24 mg/dl (8-23); Gamma Glutamyl Transpeptidase 108 U/L (8-61); Uric Acid 8.2 mg/dL (2.5-8.0)
[2017-07-16] MEDS: OMEPRAZOLE 20 MG CAPSULE PO SCH (07:06)
[2017-07-16] MEDS: INSULIN LISPRO 1 UNIT/0.01 ML UNIT SQ SCH ×2 (07:08→11:44)
[2017-07-16] MEDS: POTASSIUM CHLORIDE 10 MEQ TABLET PO SCH ×2 (08:13→12:33)
[2017-07-16] MEDS: predniSONE 20 MG TABLET PO SCH (08:13)
[2017-07-16] MEDS: amLODIPine 10 MG TABLET PO SCH (09:30)
[2017-07-16] MEDS: GEMFIBROZIL 600 MG TABLET PO SCH (09:30)
[2017-07-16] MEDS: DOCUSATE SODIUM 100 MG CAPSULE PO SCH (09:30)
[2017-07-16] MEDS: AZITHROMYCIN 250 MG TABLET PO SCH (09:30)
[2017-07-16] MEDS: METOPROLOL TARTRATE 50 MG TABLET PO SCH (09:30)
[2017-07-16] MEDS: PENTOXIFYLLINE 400 MG TABLET PO SCH (09:30)
[2017-07-16] MEDS: DABIGATRAN ETEXILATE MESYLATE 75 MG CAPSULE PO SCH (09:30)
[2017-07-16] MEDS: INSULIN GLARGINE, HUMAN 1 UNIT/0.01 ML SQ SCH (09:31)
[2017-07-16] MEDS: SPIRONOLACTONE 25 MG TABLET PO SCH (09:31)
--- NOTE | 2017-07-16 11:59 | Discharge Summary ---
Medical - DS: Prov Patient information: Note initiated : 07/16/17 at 11:57 am Service Date, if different from initiated Date: [] Patient: Len Villar 66 y/o M admitted on 07/13/17 for SOB, Weight Gain/ Congestive Heart Failure. Chief Complaint: [] Date of admission: 07/13/17 16:05 Discharge date: 07/16/17 Primary care physician: Naima Ortega Admitting clinician: Jamar Razo Consults: 07/13/17 14:03 Consult to Physician [CONS] Stat Comment: Consulting Provider: Jamar Razo Reason For Exam: Physician to Consult 07/13/17 17:51 Consult to Physician [CONS] Routine Comment: Consulting Provider: Nilay Pradhan Reason For Exam: Physician to Consult Discharging clinician: Jamar Razo Medical - DS: Meds - Discharge Medications Prescriptions: Azithromycin [Zithromax] 250 mg PO DAILY #1 tab Furosemide [Lasix] 80 mg PO BIDD #1 tablet predniSONE [Prednisone] 60 mg PO [facility] #3 tab Active and Home Medications: Home Medications Albuterol Sulfate [Ventolin] 2.5 mg NEB Q6HP PRN 07/13/17 [History Confirmed Last Taken 07/12/17 06:00] Dabigatran Etexilate Mesylate [Pradaxa] 150 mg PO BID 07/13/17 [History Confirmed 07/13/17 Last Taken 07/12/17 06:00] Ergocalciferol (Vitamin D2) [Vitamin D2] 50,000 unit PO WEEKLY 07/13/17 [ History Confirmed 07/13/17 Last Taken Unknown] Gemfibrozil [Lopid] 600 mg PO BID 07/13/17 [History Confirmed 07/13/17 Last Taken 07/12/17 06:00] Liraglutide [Victoza 2-Jose] 0.6 mg SC DAILY 07/13/17 [History Confirmed Last Taken 07/12/17 06:00] Lisinopril [Zestril] 40 mg PO DAILY 07/13/17 [History Confirmed 07/13/17 Last Taken 07/12/17 06:00] Metoprolol Tartrate [Lopressor] 50 mg PO BID 07/13/17 [History Confirmed Last Taken 07/12/17 06:00] Nortriptyline [Pamelor] 100 mg PO HS 07/13/17 [History Confirmed 07/13/17 Last Taken Unknown] Omeprazole 20 mg PO DAILY 07/13/17 [History Confirmed 07/13/17 Last Taken 06:00] Pentoxifylline [TRENtal] 400 mg PO TID 07/13/17 [History Confirmed 07/13/17 Last Taken 07/12/17 06:00] Potassium Chloride [Klor-Con 10] 30 meq PO CCHS 07/13/17 [History Confirmed Last Taken 07/12/17 06:00] Pravastatin Sodium [Pravachol] 80 mg PO HS 07/13/17 [History Confirmed 07/13/17 Last Taken 07/12/17 06:00] Spironolactone [Aldactone] 100 mg PO DAILY 07/13/17 [History Confirmed 07/13/17 Last Taken 07/12/17 06:00] Zolpidem [Ambien] 5 mg PO HS 07/13/17 [History Confirmed 07/13/17 Last Taken 20:00] amLODIPine [Norvasc] 10 mg PO DAILY 07/13/17 [History Confirmed 07/13/17 Last Taken 07/12/17 06:00] glipiZIDE [Glucotrol] 10 mg PO BIDAC 07/13/17 [History Confirmed 07/13/17 Last Taken 07/12/17 06:00] metFORMIN HCL [Metformin HCl ER] 1,000 mg PO BIDCC 07/13/17 [History Confirmed 07/13/17 Last Taken 07/12/17 06:00] traMADol [Ultram] 50 mg PO Q6 07/13/17 [History Confirmed 07/13/17 Last Taken 20:00] traZODone HCL [Desyrel] 300 mg PO DAILY 07/13/17 [History Confirmed 07/13/17 Last Taken 07/12/17 20:00] Medical - DS: Hosp Hospital course: Mr. Villar is a 66 year old Male with h/o morbid obesity, congestive heart failure, atrial fibrillation, diabetes, COPD, who presented to the ER with weight gain, approximately 40 pounds over one month. Shortness of breath worsening over one week. Cough and congestion for 1 month. The patient notes that his symptoms were getting progressively worse. The patient notes that he has a history of fluid buildup in his system him a he has been taking Lasix in the past. However, this was stopped by his doctor because he was told he did not need it anymore. The patient has gained 40 pounds over the last 1 month, has had progressive worsening in his effort tolerance. Before he could walk 1 block, now even walking for 10-15 yards will get him short of breath. the patient reports that he has been having a viral illness going on for the last 1 month, that his chest congestion, cough, yellowish sputum and some wheezing. Everyone in his family is sick from a viral illness and that has been going on for the last 1 month. In the emergency room, the patient was noted to be afebrile, saturating more than 90% on room air, but tachycardic. His labs were unremarkable except elevated BNP more than 3000. Recent chest x-ray shows pulmonary edema secondary to CHF. He was given 1 dose of Lasix and admitted to the hospital for further management The patient has chronic lower extremity wounds which are managed by wound care clinic. CHF exacerbation: The patient has 80mg tab of lasix, which he takes 3 in AM and 2 in PM, the patient has not been taking this dose after his doctor told him not to. The patient was treated with IV lasix 60mg TID and he responded well to treatment. He was -[id number] at the time of discharge. He is advised to take lasix 80mg twice daily for now. His dose of oral lasix can be titrated by his PCP. Echo done Mild LV dilatation, LV function and moderate to severely reduced. Mild to moderate LVH, RV mildly dilated, a mildly dilated, mild to moderate MR, Moderate to severe pulmonary hypertension (50-70) The patient will benefit from a cardiology opinion, to optimize his therapy and consider AICD placement given his severely reduced eejection fraction. COPD exacerbation: [place] wheeze and cough noted, treated by steroids, zithromax and duonebs, patient responded to treatment well, he will complete his course of treatment (needs 1 more day of antibiotics and steroids chr wounds: Seen by wound care in the hospital, pt advised to follow up with wound care clinic for further management. Discharge diagnosis: CHF exacerbation, COPD exacerbation. - Time Spent with Patient Total time spent providing and/or coordinating discharge services: Greater than 30 minutes Medical - DS: Exam - Constitutional Vitals: Vital Signs Temp Pulse Pulse Resp BP BP Pulse Ox 07/16/17 07:29 86 18 07/16/17 07:00 94 07/16/17 06:20 96.8 F L 20 136/102 100 07/16/17 03:54 97.0 F 94 H 18 128/98 99 07/15/17 23:42 97.2 F 67 20 141/101 97 07/15/17 23:11 66 15 07/15/17 20:00 97.4 F 55 L 20 152/109 94 07/15/17 19:24 76 22 07/15/17 15:44 97.4 F 22 127/108 99 07/15/17 15:29 98 07/15/17 15:26 68 15 07/15/17 12:17 96.9 F L 20 115/100 100 Intake and Output 07/15/17 07/16/17 07/16/17 21:59 05:59 13:59 Intake Total 330 / 330 970 / 970 520 / 520 Output Total 1750 / 1750 3475 / 3475 1425 / 1425 Balance -1420 / -1420 -2505 / -2505 -905 / -905 Intake: Oral 330 / 330 970 / 970 520 / 520 Output: Void Amount 1750 / 1750 3475 / 3475 1425 / 1425 Other: Meal Dinner Breakfast Percent of Meal Consumed 100% 100% Feeding Ability Independent Independent # Voids 1 Weight 356 lb 345 lb 8 oz Patient Weight 07/17/17 05:59 Weight 345 lb 8 oz Additional comments: Constitutional; Afebrile, cooperative, alert, not in distress. Eyes- No icterus, , No periorbital swelling Ears- Ext ear normal, hearing normal to conversation. Neck- Midline trachea, supple Respiratory system: Air Entry equal on both sides, No crackles or wheezing, no rhonchi. CVS- Rate rhythm regular, S1,S2 heard, no gallop, no rub. 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 Medical - DS: Data Procedures and tests throughout hospitalization: chest x ray IMPRESSION: Congestive heart failure with pulmonary edema Pelvis X ray IMPRESSION: No evidence of a fracture Labs on day of discharge: Labs from last 24 hours 07/16/17 07/16/17 03:50 03:50 WBC 6.8 RBC 5.26 Hgb 14.6 Hct 46.0 MCV 87.4 MCH 27.7 MCHC 31.7 RDW 18.5 H Plt Count 155 MPV 9.8 Gran % 69.0 Lymph % (Auto) 20.5 [place] % (Auto) 8.4 Eos % (Auto) 1.7 Baso % (Auto) 0.4 Gran # 4.7 Lymph # (Auto) 1.4 L [place] # (Auto) 0.6 Eos # (Auto) 0.1 Baso # (Auto) 0 Sodium 140 Potassium 4.2 Chloride 94 L Carbon Dioxide 32 H Anion Gap 14.0 BUN 24 H Creatinine 1.1 GFR Calculation 70 Glucose 121 H Uric Acid 8.2 H Calcium 9.9 Phosphorus 3.7 Magnesium 2.1 Total Bilirubin 0.6 Direct Bilirubin 0.2 GGT 108 H AST 15 ALT 16 Alkaline Phosphatase 191 H Lactate Dehydrogenase 207 Total Protein 7.5 Albumin 3.9 Globulin 3.6 Albumin/Globulin Ratio 1.1 Triglycerides 54 Medical - DS: A/P - Patient/Caregiver Discharge Instructions Activity: increase activity as tolerated Diet: Cardiac (Fluid restriction to 60 fl oz in 24 hrs. ), Consistent Carbohydrate Additional Instructions: Please take lasix 80mg twice daily. ( you noted you have these pills at home so no new prescription is given) weight your self daily, If you notice that your weight has increased by 5 lbs in 2 days, double the dose of lasix till you reach your previous weight Take antibiotics and prednisone for one more day Follow up with PCP in 1 week. Go to the ER if chest pain, worsening shortness of breath or any other acute concern. You would benefit by an evaluation by a glue specialty supervisor. Please have your primary care make a referral. Prescriptions: Azithromycin [Zithromax] 250 mg PO DAILY #1 tab Furosemide [Lasix] 80 mg PO BIDD #1 tablet predniSONE [Prednisone] 60 mg PO [facility] #3 tab - Follow up Plan Follow up with: Naima Ortega MD [Primary Care Provider] - Disposition: Home Health Service Prognosis: Fair Rehab Potential: Fair I certify that the patient requires SNF services: No Medical - DS: Qual - VTE Deep Vein Thrombosis/Pulmonary Embolism Present on Admission: No
== END 2017-07-16 13:46 | disposition home health service (06) | DRG 292 ==
LOC: ED 11:11 → ICU 16:05
PROVIDERS: ADMIT Internal Medicine; ATTEND Internal Medicine

== ENCOUNTER 2020-02-13 11:06 | Inpatient (IN) ==
[2020-02-13 12:11] LABS: Basophils # (Auto) 0.05 K/mcL (0.00-0.30); Basophils % (Auto) 0.8 % (0.0-2.0); Eosinophils # (Auto) 0.69 K/mcL (0.00-0.70); Eosinophils % (Auto) 11.3 % (0.0-7.0); Hematocrit 36.9 % (40.1-51.0); Hemoglobin 11.5 g/dL (13.7-17.5); Lymphocytes # (Auto) 1.09 K/mcL (1.50-4.80); Lymphocytes % (Auto) 17.8 % (15.5-49.0); Mean Cell Volume 89.1 fL (80.0-100.0); Mean Corpuscular HGB Conc 31.2 g/dL (31.0-36.0); Mean Platelet Volume 10.4 fL (7.4-10.4); Monocytes # (Auto) 0.37 K/mcL (0.10-0.90); Monocytes % (Auto) 6.1 % (1.0-12.0); Platelet Count 169 K/mcL (140-440); RBC 4.14 M/mcL (4.63-6.08); Red Cell Distribution Width 15.9 % (11.5-14.5); WBC 6.1 K/mcL (4.50-11.00)
--- NOTE | 2020-02-13 12:26 | XRay Report ---
CLINICAL INFORMATION: wound draining pus COMPARISON: 12/18/2019 FINDINGS: There is mild erosive change in plantar and dorsal regions of the first proximal phalangeal base. This could represent subtle signs of osteomyelitis - please correlate with point tenderness in the first proximal phalanx. No other potential foci of osteomyelitis. Diffuse soft tissue swelling would be compatible cellulitis Hammertoe deformities of the second through fifth digits noted. Mild degenerative change in the second through fifth MTP and interphalangeal joints. There is marked narrowing of the talocalcaneal joint which could indicate degeneration or other arthritic process. IMPRESSION: 1. Subtle erosive changes in the dorsal and plantar first proximal phalangeal base. This may or may not represent osteomyelitis - please correlate with point tenderness in this region. 2. Diffuse cellulitis 3. Other chronic findings - as described Interpreted and Authenticated by: Martin Robles 02/13/20
[2020-02-13 12:32] LABS: ALT/SGPT 12 U/l (0-40); AST/SGOT 12 U/l (0-37); Albumin 3.1 gm/dL (3.2-5.2); Albumin/Globulin Ratio 0.8 (1.0-2.3); Alkaline Phosphatase 100 U/L (39-117); Bilirubin,Total 0.3 mg/dL (0.0-1.0); Blood Urea Nitrogen 40 mg/dl (8-23); C-Reactive Protein 3.2 mg/dl (0.0-0.8); Calcium 9.2 mg/dl (8.6-10.4); Carbon Dioxide 23 mmol/L (22-30); Chloride 99 mmol/L (96-108); Globulin 3.9 gm/dL (2.2-3.7); Glomerular Filtration Rate 47; Glucose 235 mg/dL (70-105)
[2020-02-13] MEDS ORDERED: cefTRIAXone 1 GM VIAL IV ONE (12:39)
--- NOTE | 2020-02-13 12:49 | Emergency Department Note ---
Wound/Laceration HIP General Chief Complaint: Wound/Laceration Stated Complaint: 4 wounds on l leg, weeping edema Time Seen by Provider: 02/13/20 11:09 Source: patient Mode of arrival: wheelchair Limitations: no limitations History of Present Illness HPI Narrative: Narrative: 69-year-old male comes in from [facility] for left lower leg wound. Dr. Pradhan actually sent him over because he felt that the patient needed more aggressive care and debridement of that wound. He said that it is draining pus and that we need to start antibiotics on this. Apparently he has been managing the patient's wound but he has not been getting better; he has failed outpatient therapy with wound care and now needs inpatient debridement antibiotics IV. He recommended some labs and imaging. Dr. Pradhan showed me pictures of the wound so that I did not need to unwrap his most recent bandage today. This indeed did show a draining wound the left ankle and foot, concerning for severe cellulitis/osteomyelitis and possible sepsis On discussion with the patient he denies fever chills nausea vomiting diarrhea trouble breathing trouble urinating. Besides his foot he has no other complaints Related Data Home Medications Medication Instructions Recorded Confirmed Dulcolax (bisacodyl) 10 mg .ROUTE PRN PRN 02/13/20 02/13/20 Milk Of Magnesia Concentrated 1,200 mg PO PRN PRN 02/13/20 02/13/20 acetaminophen [Tylenol] 325 mg PO QDAY 02/13/20 02/13/20 acetaminophen [Tylenol] 650 mg PO Q24H PRN 02/13/20 02/13/20 acetaminophen [Tylenol] 650 mg PO QAM 02/13/20 02/13/20 albuterol sulfate [Proventil HFA] 2 puff INHALATION Q4H PRN 02/13/20 02/13/20 aspirin 81 mg PO QDAY 02/13/20 02/13/20 atorvastatin 80 mg PO QDAY 02/13/20 02/13/20 bisacodyl [Dulcolax (bisacodyl)] 10 mg PO PRN PRN 02/13/20 02/13/20 budesonide-formoterol [Symbicort] 2 puff INHALATION BID 02/13/20 02/13/20 carvedilol 25 mg PO BID 02/13/20 02/13/20 furosemide 60 mg PO BID 02/13/20 02/13/20 gabapentin 100 mg PO TID 02/13/20 02/13/20 hydrocodone-acetaminophen 1 tab PO Q4H PRN 02/13/20 02/13/20 insulin aspart U-100 [Novolog See Rx Instructions .ROUTE .COMPLEX 02/13/20 02/13/20 U-100 Insulin aspart] insulin glargine [Basaglar KwikPen 10 unit SUBCUT QDAY 02/13/20 02/13/20 U-100 Insulin] insulin glargine [Basaglar KwikPen 12 unit SUBCUT QDAY 02/13/20 02/13/20 U-100 Insulin] latanoprost 1 OPHTHALMIC (EYE) QDAY 02/13/20 lidocaine [LMX 4] 1 applic TOPICAL Q24H PRN 02/13/20 02/13/20 lisinopril 40 mg PO QDAY 02/13/20 02/13/20 melatonin 5 mg PO HS 02/13/20 02/13/20 nystatin 1 applic TOPICAL BID 02/13/20 02/13/20 oxycodone [OxyContin] 15 mg PO Q12H 02/13/20 02/13/20 polyethylene glycol 3350 17 g PO BID 02/13/20 02/13/20 sodium phosphates [Fleet Enema] 118 ml GA PRN PRN 02/13/20 02/13/20 spironolactone 25 mg PO QDAY 02/13/20 02/13/20 tizanidine 2 mg PO QDAY 02/13/20 02/13/20 trazodone 150 mg PO QHS 02/13/20 02/13/20 warfarin 9 mg PO QDAY 02/13/20 02/13/20 Allergies Allergy/AdvReac Type Severity Reaction Status Date / Time Amoxicillin [From Augmentin] AdvReac Mild Nausea Verified 12/18/19 19:19 clavulanic acid AdvReac Mild Nausea Verified 12/18/19 19:19 [From Augmentin] Review of Systems ROS ROS Narrative: Narrative: All systems ED: reviewed and negative except as stated. PFSH Narrative Patient History Narrative: Narrative: Medical/Surgical/Family History All Active Problems Cellulitis of left leg (Acute) Diabetic ulcer of foot, limited to breakdown of skin (Acute) Diabetic ulcer of ankle, limited to breakdown of skin (Acute) Morbid obesity (Acute) COPD (chronic obstructive pulmonary disease) (Acute) Atrial fibrillation (Acute) Type 2 diabetes mellitus (Acute) CHF (congestive heart failure) (Acute) Stasis dermatitis of both legs (Chronic) Social History Smoking Status: Current every day smoker Exam Narrative Narrative: Narrative: Morbidly obese male, pleasant and reasonable. Normocephalic atraumatic. Conjunctive are clear sclerae white nonicteric. No nasal discharge or congestion. Oropharynx pink and moist. Neck is supple without lymphadenopathy or thyromegaly. Auscultation of the heart and lungs are difficult due to body habitus-he weighs over 400 pounds- but I did attempt. Heart is regular rate and rhythm no murmur appreciated. Lungs are clear to auscultation bilaterally without wheezes rales rhonchi or respiratory distress. Abdomen soft nontender nondistended. His left leg wound is wrapped-however I did review the pictures as noted above please see Dr. Pradhan's documentation. General Limitations: no limitations Course Vital Signs Vital signs: Vital Signs Temperature 96.9 F L 02/13/20 11:07 Pulse Rate 67 02/13/20 11:07 Respiratory Rate 18 02/13/20 11:07 Blood Pressure 140/74 02/13/20 11:07 Pulse Oximetry (%) 97 02/13/20 11:07 Temperature 96.9 F L 02/13/20 11:07 Pulse Rate 64 02/13/20 13:16 Respiratory Rate 18 02/13/20 11:07 Blood Pressure 131/80 02/13/20 13:16 Pulse Oximetry (%) 98 02/13/20 13:16 [facility] MDM Narrative Medical decision making narrative: Narrative: We evaluated this patient with laboratory and x-ray of the left foot. Left foot x-ray is consistent with cellulitis and possible osteomyelitis. Pictures show draining wound so we will go ahead and start him on some Rocephin as he has nausea with penicillin. Laboratory does show elevated CRP but procalcitonin does not support sepsis. He failed outpatient therapy and does require debridement of his wounds. Discussed with hospitalist, Dr. Wright. We will bring him in the hospital for further care and evaluation Lab Data Lab results reviewed: Yes I reviewed the patient's lab results. Lab results narrative: Urinalysis [id number] dipstick was basically normal. Result diagrams: 02/13/20 11:31 02/13/20 11:31 Labs: Lab Results 02/13/20 02/13/20 02/13/20 Range/Units 11:31 11:31 11:31 WBC 6.1 (4.50-11.00) K/mcL RBC 4.14 L (4.63-6.08) M/mcL Hgb 11.5 L (13.7-17.5) g/dL Hct 36.9 L (40.1-51.0) % MCV 89.1 (80.0-100.0) fL MCH 27.8 (26.0-34.0) pg MCHC 31.2 (31.0-36.0) g/dL RDW 15.9 H (11.5-14.5) % Plt Count 169 (140-440) K/mcL MPV 10.4 (7.4-10.4) fL Gran % 64.0 (38.0-78.0) % Lymph % (Auto) 17.8 (15.5-49.0) % [place] % (Auto) 6.1 (1.0-12.0) % Eos % (Auto) 11.3 H (0.0-7.0) % Baso % (Auto) 0.8 (0.0-2.0) % Gran # 3.91 (1.80-8.00) K/mcL Lymph # (Auto) 1.09 L (1.50-4.80) K/mcL [place] # (Auto) 0.37 (0.10-0.90) K/mcL Eos # (Auto) 0.69 (0.00-0.70) K/mcL Baso # (Auto) 0.05 (0.00-0.30) K/mcL Sodium 137 (133-145) mmol/L Potassium 4.6 (3.3-5.1) mmol/L Chloride 99 (96-108) mmol/L Carbon Dioxide 23 (22-30) mmol/L Anion Gap 15.0 (8-16) BUN 40 H (8-23) mg/dl Creatinine 1.5 H (0.7-1.2) mg/dl GFR Calculation 47 Glucose 235 H (70-105) mg/dL Calcium 9.2 (8.6-10.4) mg/dl Total Bilirubin 0.3 (0.0-1.0) mg/dL AST 12 (0-37) U/l ALT 12 (0-40) U/l Alkaline Phosphatase 100 (39-117) U/L C-Reactive Protein 3.2 H (0.0-0.8) mg/dl Total Protein 7.0 (5.9-8.4) gm/dL Albumin 3.1 L (3.2-5.2) gm/dL Globulin 3.9 H (2.2-3.7) gm/dL Albumin/Globulin Ratio 0.8 L (1.0-2.3) Procalcitonin 0.05 (<0.10) ng/mL Radiology Data Radiology results reviewed: Yes I reviewed the patient's radiology results. Radiology results narrative: X-ray of the left foot shows significant cellulitis with the possibility of osteomyelitis. Discharge Plan Patient/Caregiver Discharge Instructions Pt seen by FISCAL SERVICES MANAGER/PA only: No Clinical Impression: Cellulitis of left leg, Diabetic ulcer of foot, limited to breakdown of skin, Diabetic ulcer of ankle, limited to breakdown of skin, Morbid obesity Patient Disposition: Xfer As Inpt ([facility] Condition: Fair Follow up with: Phu Allred ARNP [Primary Care Provider] - Nilay Pradhan MD [Physician] - Prescriptions: No Action atorvastatin 80 mg tablet 80 mg PO QDAY RF: 0 carvedilol 25 mg tablet 25 mg PO BID RF: 0 aspirin 81 mg Tablet,Delayed Release (Dr/Ec) 81 mg PO QDAY RF: 0 bisacodyl [Dulcolax (bisacodyl)] 5 mg Tablet,Delayed Release (Dr/Ec) 10 mg PO PRN PRN (Reason: Constipation) RF: 0 Basaglar KwikPen U-100 Insulin 100 unit/mL (3 mL) insulin pen 10 unit SUBCUT QDAY RF: 0 Basaglar KwikPen U-100 Insulin 100 unit/mL (3 mL) insulin pen 12 unit SUBCUT QDAY RF: 0 Dulcolax (bisacodyl) 10 mg .Route PRN PRN (Reason: Constipation) RF: 0 furosemide 40 mg Tablet 60 mg PO BID RF: 0 latanoprost 0.005 % drops 1 OPHTHALMIC (EYE) QDAY RF: 0 polyethylene glycol 3350 17 gram Powder In Packet 17 g PO BID RF: 0 lidocaine [LMX 4] 4 % Cream 1 applic TOPICAL Q24H PRN (Reason: Pain) RF: 0 insulin aspart U-100 [Novolog U-100 Insulin aspart] 100 unit/mL Solution See Rx Instructions .ROUTE .COMPLEX RF: 0 hydrocodone-acetaminophen 7.5-325 mg tablet 1 tab PO Q4H PRN (Reason: Pain) RF: 0 nystatin 100,000 unit/gram Cream 1 applic TOPICAL BID RF: 0 Fleet Enema 19-7 gram/118 mL Enema 118 ml GA PRN PRN (Reason: Constipation) RF: 0 gabapentin 100 mg capsule 100 mg PO TID RF: 0 albuterol sulfate [Proventil HFA] 90 mcg/actuation Hfa Aerosol Inhaler 2 puff INHALATION Q4H PRN (Reason: Bronchodilation) RF: 0 lisinopril 40 mg tablet 40 mg PO QDAY RF: 0 melatonin 5 mg Tablet 5 mg PO HS RF: 0 oxycodone [OxyContin] 15 mg Tablet,Oral Only,Ext.Rel.12 Hr 15 mg PO Q12H RF: 0 Milk Of Magnesia Concentrated 1,200 mg PO PRN PRN (Reason: Constipation) RF: 0 acetaminophen [Tylenol] 325 mg Tablet 650 mg PO Q24H PRN (Reason: Pain) RF: 0 acetaminophen [Tylenol] 325 mg Tablet 650 mg PO QAM RF: 0 acetaminophen [Tylenol] 325 mg Tablet 325 mg PO QDAY RF: 0 tizanidine 2 mg Tablet 2 mg PO QDAY RF: 0 spironolactone 25 mg Tablet 25 mg PO QDAY RF: 0 warfarin 3 mg Tablet 9 mg PO QDAY RF: 0 trazodone 150 mg Tablet 150 mg PO QHS RF: 0 budesonide-formoterol [Symbicort] 160-4.5 mcg/actuation Hfa Aerosol Inhaler 2 puff INHALATION BID RF: 0
--- NOTE | 2020-02-13 13:36 | Internal Med History&Physical ---
HPI History of Present Illness Patient information: Note initiated : 02/13/20 at 1:29 pm Service Date, if different from initiated Date: [] Patient: Len Villar a 69 y/o M admitted on for 4 wounds on l leg, weeping edema. Chief Complaint: [] History of present illness: Mr. Villar is a 69 year old M Presents to the ED from wound care clinic for worsening diabetic foot wound. Patient has a left foot diabetic wound that is been seeing wound care for and when he was seen at the clinic today is found to have some worsening in erythema and purulence and cellulitic appearance and thus failing outpatient therapy. Dr. Pradhan sent him to the ED and stated he will likely need surgical I&D and IV antibiotics. Patient states he has been dealing with this for months and also it is uncomfortable at times. Denies fever chills Review of Systems: Pertinent positives as above. Denies headache/fever/chills/nausea/vomiting/chest or abdominal pain/cough/dyspnea/diarrhea. Remaining 10 point review of system reviewed negative PFSH PFSH All Active Problems Cellulitis of left leg (Acute) Diabetic ulcer of foot, limited to breakdown of skin (Acute) Diabetic ulcer of ankle, limited to breakdown of skin (Acute) Morbid obesity (Acute) COPD (chronic obstructive pulmonary disease) (Acute) Atrial fibrillation (Acute) Type 2 diabetes mellitus (Acute) CHF (congestive heart failure) (Acute) Stasis dermatitis of both legs (Chronic) Social History smoking status: Current every day smoker MEDS/ALLERGIES Home Medications and Allergies Home Medications Medication Instructions Recorded Confirmed Type Dulcolax (bisacodyl) 10 mg .ROUTE PRN PRN 02/13/20 02/13/20 History Milk Of Magnesia Concentrated 1,200 mg PO PRN PRN 02/13/20 02/13/20 History acetaminophen [Tylenol] 325 mg PO QDAY 02/13/20 02/13/20 History acetaminophen [Tylenol] 650 mg PO Q24H PRN 02/13/20 02/13/20 History acetaminophen [Tylenol] 650 mg PO QAM 02/13/20 02/13/20 History albuterol sulfate [Proventil HFA] 2 puff INHALATION Q4H PRN 02/13/20 02/13/20 History aspirin 81 mg PO QDAY 02/13/20 02/13/20 History atorvastatin 80 mg PO QDAY 02/13/20 02/13/20 History bisacodyl [Dulcolax (bisacodyl)] 10 mg PO PRN PRN 02/13/20 02/13/20 History budesonide-formoterol [Symbicort] 2 puff INHALATION BID 02/13/20 02/13/20 History carvedilol 25 mg PO BID 02/13/20 02/13/20 History furosemide 60 mg PO BID 02/13/20 02/13/20 History gabapentin 100 mg PO TID 02/13/20 02/13/20 History hydrocodone-acetaminophen 1 tab PO Q4H PRN 02/13/20 02/13/20 History insulin aspart U-100 [Novolog See Rx Instructions .ROUTE .COMPLEX 02/13/20 02/13/20 History U-100 Insulin aspart] insulin glargine [Basaglar KwikPen 10 unit SUBCUT QDAY 02/13/20 02/13/20 History U-100 Insulin] insulin glargine [Basaglar KwikPen 12 unit SUBCUT QDAY 02/13/20 02/13/20 History U-100 Insulin] latanoprost 1 OPHTHALMIC (EYE) QDAY 02/13/20 History lidocaine [LMX 4] 1 applic TOPICAL Q24H PRN 02/13/20 02/13/20 History lisinopril 40 mg PO QDAY 02/13/20 02/13/20 History melatonin 5 mg PO HS 02/13/20 02/13/20 History nystatin 1 applic TOPICAL BID 02/13/20 02/13/20 History oxycodone [OxyContin] 15 mg PO Q12H 02/13/20 02/13/20 History polyethylene glycol 3350 17 g PO BID 02/13/20 02/13/20 History sodium phosphates [Fleet Enema] 118 ml [place] PRN PRN 02/13/20 02/13/20 History spironolactone 25 mg PO QDAY 02/13/20 02/13/20 History tizanidine 2 mg PO QDAY 02/13/20 02/13/20 History trazodone 150 mg PO QHS 02/13/20 02/13/20 History warfarin 9 mg PO QDAY 02/13/20 02/13/20 History Allergies Allergy/AdvReac Type Severity Reaction Status Date / Time Amoxicillin [From Augmentin] AdvReac Mild Nausea Verified 12/18/19 19:19 clavulanic acid AdvReac Mild Nausea Verified 12/18/19 19:19 [From Augmentin] EXAM Constitutional Vitals: Temp Pulse Resp BP Pulse Ox 96.9 F L 64 18 131/80 98 02/13/20 11:07 02/13/20 13:16 02/13/20 11:07 02/13/20 13:16 02/13/20 13:16 Exam: General: Alert, Awake, No acute Distress, obese Eyes/N/T: EOMI, PERRL, Head/Neck: neck supple, normocephalic atraumatic CV: Regular with occasional irregularity, No murmurs, normal s1/s2 Pulm: Clear b/l, no wheezing/rhonchi/rales Abd: soft, nontender, +BS x4 Ext: no clubbing/cyanosis, b/l LE edema 1+ L>R, left foot in dressings Neuro: Alert, no focal deficits, moves all extremities, CN 2-12 grossly intact, symmetrical strength b/l upper/lower, sensations intact b/l upper/lower Skin: warm/dry DATA Data Completed and Pending Labs: Labs from last 24 hours 02/13/20 02/13/20 02/13/20 11:31 11:31 11:31 WBC RBC Hgb Hct MCV MCH MCHC RDW Plt Count MPV Gran % Lymph % (Auto) [place] % (Auto) Eos % (Auto) Baso % (Auto) Gran # Lymph # (Auto) [place] # (Auto) Eos # (Auto) Baso # (Auto) VBG Lactic Acid Pending Sodium 137 Potassium 4.6 Chloride 99 Carbon Dioxide 23 Anion Gap 15.0 BUN 40 H Creatinine 1.5 H GFR Calculation 47 Glucose 235 H Calcium 9.2 Total Bilirubin 0.3 AST 12 ALT 12 Alkaline Phosphatase 100 C-Reactive Protein 3.2 H Total Protein 7.0 Albumin 3.1 L Globulin 3.9 H Albumin/Globulin Ratio 0.8 L Procalcitonin 0.05 02/13/20 11:31 WBC 6.1 RBC 4.14 L Hgb 11.5 L Hct 36.9 L MCV 89.1 MCH 27.8 MCHC 31.2 RDW 15.9 H Plt Count 169 MPV 10.4 Gran % 64.0 Lymph % (Auto) 17.8 [place] % (Auto) 6.1 Eos % (Auto) 11.3 H Baso % (Auto) 0.8 Gran # 3.91 Lymph # (Auto) 1.09 L [place] # (Auto) 0.37 Eos # (Auto) 0.69 Baso # (Auto) 0.05 VBG Lactic Acid Sodium Potassium Chloride Carbon Dioxide Anion Gap BUN Creatinine GFR Calculation Glucose Calcium Total Bilirubin AST ALT Alkaline Phosphatase C-Reactive Protein Total Protein Albumin Globulin Albumin/Globulin Ratio Procalcitonin A/P Narrative A/P Narrative: A: *DM foot wound with cellulitis, ?osteo: failed outpt treatment *DM: A1c *Morbid obesity: *COPD (not on home oxygen): *LUIS on CPAP: *Tobacco abuse: *CKD stage III: *HTN: *h/o solid/diastolic heart failure: *Atrial fibrillation: P: -Zosyn, mrsa screen -WC/BC -MRI foot -[facility] for I&D -a1c, ESR -elevate legs -hold diuretics today -basal and SSI -pt/ot -Smoking cessation counseling -ppx: warfarin per pharm(but hold currently for I&D) full code Time Spent With Patient Time: Total time spent is greater than 50% in coordination of care (as documented) at patient's floor/unit and/or counseling patient:
[2020-02-13 14:12] LABS: INR 4.1 (0.9-1.1); Prothrombin Time 40.6 sec (11.9-14.5)
[2020-02-13] MEDS ORDERED: POLYETHYLENE GLYCOL 3350 17 GM PACKET PO PRN (14:47)
[2020-02-13] MEDS ORDERED: IPRATROPIUM/ALBUTEROL 3 ML AMPUL.NEB NEB PRN (14:47)
[2020-02-13] MEDS ORDERED: LIDOCAINE 5 GM CREAM.TOP TOPICAL PRN (14:47)
[2020-02-13] MEDS ORDERED: ONDANSETRON 4 MG/2 ML VIAL IV PRN (14:47)
[2020-02-13] MEDS ORDERED: DEXTROSE 31 GM ORAL.SUSP PO PRN (14:47)
[2020-02-13] MEDS ORDERED: DEXTROSE 50% 50 ML VIAL IV PRN (14:47)
[2020-02-13] MEDS ORDERED: SENNOSIDES 1 TABLET PO PRN (14:47)
[2020-02-13] MEDS ORDERED: ACETAMINOPHEN 325 MG TABLET PO PRN (14:47)
[2020-02-13] MEDS ORDERED: LABETALOL 5 MG/ML ML IV PRN (14:47)
[2020-02-13] MEDS ORDERED: ALBUTEROL SULFATE 200 PUFF INHALER INH PRN (14:47)
[2020-02-13] MEDS ORDERED: POTASSIUM CHLORIDE 20 MEQ TABLET PO PRN ×2 (14:47)
[2020-02-13] MEDS ORDERED: METOPROLOL TARTRATE 5 MG/5 ML VIAL IV PRN (14:47)
[2020-02-13] MEDS ORDERED: hydrALAZINE 20 MG/ML VIAL IV PRN (14:47)
[2020-02-13] MEDS ORDERED: MAGNESIUM SULFATE 2 GM/50 ML BAG IV PRN (14:47)
[2020-02-13] MEDS ORDERED: BISACODYL 5 MG TABLET PO PRN ×2 (14:47→15:30)
[2020-02-13] MEDS ORDERED: POTASSIUM CHLORIDE 40 MEQ in DEXTROSE 5% IN WATER 500 ML IV PRN (14:47)
[2020-02-13] MEDS ORDERED: METOCLOPRAMIDE 10 MG/2 ML VIAL IV PRN (14:47)
[2020-02-13] MEDS ORDERED: DULCOLAX 10 MG PRN (14:47)
[2020-02-13] MEDS ORDERED: MAGNESIUM HYDROXIDE 30 ML ORAL.SUSP PO PRN ×2 (15:04→15:15)
[2020-02-13 15:35] LABS: Hemoglobin A1C 8.2 % HGB (4.0-6.0)
[2020-02-13] MEDS: 0.9 % SODIUM CHLORIDE 10 ML SYRINGE IV SCH ×2 (16:12→20:00)
[2020-02-13] MEDS: PIPERACILLIN SODIUM/TAZOBACTAM 3.375 GM in DEXTROSE 5% IN WATER 50 ML IV SCH ×2 (16:12→20:04)
[2020-02-13] MEDS: GABAPENTIN 100 MG CAPSULE PO SCH ×2 (16:12→20:05)
[2020-02-13] MEDS: HYDROCODONE/APAP 7.5/325MG TABLET PO PRN (16:45)
[2020-02-13] MEDS: INSULIN LISPRO 1 UNIT/0.01 ML UNIT SQ SCH ×2 (16:58→20:16)
[2020-02-13] MEDS: CARVEDILOL 12.5 MG TABLET PO SCH (17:02)
--- NOTE | 2020-02-13 18:22 | Cat Scan Report ---
CLINICAL INFORMATION: ? Soft tissue windows. Evaluate for osteomyelitis. Technique: 0.625 mm helical slices were obtained through the left foot and ankle. Following reconstruction, 2.5 mm axial, sagittal coronal reformatted images were processed and reviewed at bone and soft tissue windows. COMPARISON: Plain films 02/13/2020 FINDINGS: There is a loculated region of osteolysis in the central calcaneus spanning 2.3 x 2 cm. Within this region, 16 mm cavity containing fluid. It is suspicious for osteomyelitis, but was not appreciated on prior plain film. There are mild chronic erosions of the dorsal and plantar base of the first proximal phalanx, however these do not not appear to be infected. A 14 mm region of trabecular rarefaction in the lateral cuboid and a 13 mm region of rarefaction in the lateral cuneiform more likely areas of osteopenia rather than infection. Diffuse osteoporosis noted. There is moderate degenerative change in the second through fifth interphalangeal joints. The remaining joint spaces are normal. Moderate ossification seen Achilles and plantar tendon insertions on the calcaneus. Soft tissue windows show moderate diffuse cellulitis predominantly dorsally. There is no evidence of soft tissue abscess. Tendons and sheaths are grossly normal. IMPRESSION: 1. 2.3 cm osteolytic cavity in the central calcaneus which is suspicious for osteomyelitis. 2. Focal erosions the dorsal and plantar surfaces of the first proximal phalanx which appear to be chronic and not related osteomyelitis. 3. Two foci of trabecular rarefaction: 14 mm and the lateral cuboid and 13 mm in the lateral cuneiform are likely related to osteoporosis. Moderate diffuse osteoporosis noted 4. Diffuse cellulitis - more prominent dorsally. Interpreted and Authenticated by: Martin Robles 02/13/20
[2020-02-13] MEDS: DOCUSATE SODIUM 100 MG CAPSULE PO SCH (20:05)
[2020-02-13] MEDS: oxyCODONE 10 MG TAB.ER.12H PO SCH (20:05)
[2020-02-13] MEDS: MELATONIN 3 MG TABLET PO SCH (20:05)
[2020-02-13] MEDS: traZODone HCL 150 MG TABLET PO SCH (20:06)
[2020-02-13] MEDS: POLYETHYLENE GLYCOL 3350 17 GM PACKET PO SCH (20:18)
[2020-02-13] MEDS: BUDESONIDE INH SCH (20:18)
[2020-02-13] MEDS: FORMOTEROL INH SCH (20:18)
--- NOTE | 2020-02-13 20:23 | General Surgery Consult Note ---
HPI Data of Consult Consult date: 02/13/20 Requesting physician: Moises Wright Primary Care Provider: AISSATOU Ariza Family Provider: Consult Narrative Patient Information: Note initiated : 02/13/20 at 8:17 pm Service Date, if different from initiated Date: [] Patient: Len Villar 69 y/o M admitted on 02/13/20 for 4 wounds on l leg, weeping edema. Chief Complaint: [] Chief complaint: CHronic LEFT leg wounds. Failed out patient treatment. INTERVAL CHANGE Reason for consult: Wound Care / Management. cc:: CC: Moises Wright This patient was seen in wound care center today for a routine visit. He was noted to have significant deterioration of his LEFT leg chronic wounds, with PAIN, TTP, constant purulent drainage, and development of new wounds, There is concern for underlying PAD and osteomyelitis of bones in the region. Patient needs expedited imaging, IV antibiotics, ( Vascular study ), BIB wound care MIST therapy before POSSIBLE debridement in OR. Integumentary Integumentary: Present as per HPI PFSH PFSH All Active Problems Cellulitis of left leg (Acute) Diabetic ulcer of foot, limited to breakdown of skin (Acute) Diabetic ulcer of ankle, limited to breakdown of skin (Acute) Morbid obesity (Acute) COPD (chronic obstructive pulmonary disease) (Acute) Atrial fibrillation (Acute) Type 2 diabetes mellitus (Acute) CHF (congestive heart failure) (Acute) Stasis dermatitis of both legs (Chronic) Social History smoking status: Current every day smoker MEDS/ALLERGIES Home Medications and Allergies Home Medications Medication Instructions Recorded Confirmed Type Dulcolax (bisacodyl) 10 mg .ROUTE PRN PRN 02/13/20 02/13/20 History Milk Of Magnesia Concentrated 1,200 mg PO PRN PRN 02/13/20 02/13/20 History acetaminophen [Tylenol] 650 mg PO Q24H PRN 02/13/20 02/13/20 History acetaminophen [Tylenol] 650 mg PO QAM 02/13/20 02/13/20 History albuterol sulfate [Proventil HFA] 2 puff INHALATION Q4H PRN 02/13/20 02/13/20 History aspirin 81 mg PO QDAY 02/13/20 02/13/20 History atorvastatin 80 mg PO QDAY 02/13/20 02/13/20 History bisacodyl [Dulcolax (bisacodyl)] 10 mg PO PRN PRN 02/13/20 02/13/20 History budesonide-formoterol [Symbicort] 2 puff INHALATION BID 02/13/20 02/13/20 History carvedilol 25 mg PO BID 02/13/20 02/13/20 History furosemide 60 mg PO BID 02/13/20 02/13/20 History gabapentin 100 mg PO TID 02/13/20 02/13/20 History hydrocodone-acetaminophen 1 tab PO Q4H PRN 02/13/20 02/13/20 History insulin aspart U-100 [Novolog See Rx Instructions .ROUTE .COMPLEX 02/13/20 02/13/20 History U-100 Insulin aspart] insulin glargine [Basaglar KwikPen 10 unit SUBCUT QDAY 02/13/20 02/13/20 History U-100 Insulin] insulin glargine [Basaglar KwikPen 12 unit SUBCUT QDAY 02/13/20 02/13/20 History U-100 Insulin] latanoprost 1 drp OPHTHALMIC (EYE) QDAY 02/13/20 02/13/20 History lidocaine [LMX 4] 1 applic TOPICAL Q24H PRN 02/13/20 02/13/20 History lisinopril 40 mg PO QDAY 02/13/20 02/13/20 History melatonin 5 mg PO HS 02/13/20 02/13/20 History nystatin 1 applic TOPICAL BID 02/13/20 02/13/20 History oxycodone [OxyContin] 15 mg PO Q12H 02/13/20 02/13/20 History polyethylene glycol 3350 17 g PO BID 02/13/20 02/13/20 History sodium phosphates [Fleet Enema] 118 ml [place] PRN PRN 02/13/20 02/13/20 History spironolactone 25 mg PO QDAY 02/13/20 02/13/20 History tizanidine 2 mg PO QDAY 02/13/20 02/13/20 History trazodone 150 mg PO QHS 02/13/20 02/13/20 History warfarin 8 mg PO 3XW 02/13/20 02/13/20 History warfarin See Rx Instructions .ROUTE .COMPLEX 02/13/20 02/13/20 History Allergies Allergy/AdvReac Type Severity Reaction Status Date / Time Amoxicillin [From Augmentin] AdvReac Mild Nausea Verified 12/18/19 19:19 clavulanic acid AdvReac Mild Nausea Verified 12/18/19 19:19 [From Augmentin] Physical Examination Vital Signs Vital signs: Temp Pulse Resp BP Pulse Ox 97.9 F 60 16 107/61 98 02/13/20 19:41 02/13/20 19:41 02/13/20 19:41 02/13/20 19:41 02/13/20 19:41 General physical appearance General physical exam: well developed, well nourished, no distress and obese (SUPER MORBIDLY OBESE. Limited mobility) Eyes Eye exam: PERRL and normal ocular movement ENT ENT exam: normal pinna, normal nares and no congestion Head Head exam IM: Present atraumatic and normocephalic Neck Neck exam: no masses, trachea midline and no venous distension Cardiovascular Cardiovascular exam IM: Present normal rate and rhythm Respiratory Respiratory exam: normal expansion, normal respiratory effort and clear to auscultation Abdomen Abdomen: Present soft and bowel sounds Genitourinary Genitourinary (Male): Present normal penis with no external lesions Integumentary Integumentary: Present other (Moisture associated dermatits, lymphedema, multiple mixed stage 3, stage 4 vascular ulcers of LEFT lower leg with post phlebitis syndrome.) Neurologic Neurologic: Present normal coordination and normal sensation Musculoskeletal Musculoskeletal: Present normal posture and other (Limited ambulation.) Psychiatric Psychiatric: Present oriented to time, oriented to person, oriented to place, speech is normal and memory intact Results Labs Result diagrams: 02/14/20 05:00 02/14/20 05:00 Labs: Abnormal lab results 02/13/20 02/13/20 02/13/20 Range/Units 11:31 11:31 11:33 RBC 4.14 L (4.63-6.08) M/mcL Hgb 11.5 L (13.7-17.5) g/dL Hct 36.9 L (40.1-51.0) % RDW 15.9 H (11.5-14.5) % Eos % (Auto) 11.3 H (0.0-7.0) % Lymph # (Auto) 1.09 L (1.50-4.80) K/mcL ESR 61 H (0-15) mm/hr PT (11.9-14.5) sec INR (0.9-1.1) BUN 40 H (8-23) mg/dl Creatinine 1.5 H (0.7-1.2) mg/dl Glucose 235 H (70-105) mg/dL Hemoglobin A1c (4.0-6.0) % HGB C-Reactive Protein 3.2 H (0.0-0.8) mg/dl Albumin 3.1 L (3.2-5.2) gm/dL Globulin 3.9 H (2.2-3.7) gm/dL Albumin/Globulin Ratio 0.8 L (1.0-2.3) 02/13/20 02/13/20 Range/Units 11:33 11:33 RBC (4.63-6.08) M/mcL Hgb (13.7-17.5) g/dL Hct (40.1-51.0) % RDW (11.5-14.5) % Eos % (Auto) (0.0-7.0) % Lymph # (Auto) (1.50-4.80) K/mcL ESR (0-15) mm/hr PT 40.6 H (11.9-14.5) sec INR 4.1 H (0.9-1.1) BUN (8-23) mg/dl Creatinine (0.7-1.2) mg/dl Glucose (70-105) mg/dL Hemoglobin A1c 8.2 H (4.0-6.0) % HGB C-Reactive Protein (0.0-0.8) mg/dl Albumin (3.2-5.2) gm/dL Globulin (2.2-3.7) gm/dL Albumin/Globulin Ratio (1.0-2.3) Diabetes panel 02/13/20 02/13/20 Range/Units 11:31 11:33 Sodium 137 (133-145) mmol/L Potassium 4.6 (3.3-5.1) mmol/L Chloride 99 (96-108) mmol/L Carbon Dioxide 23 (22-30) mmol/L BUN 40 H (8-23) mg/dl Creatinine 1.5 H (0.7-1.2) mg/dl Glucose 235 H (70-105) mg/dL Hemoglobin A1c 8.2 H (4.0-6.0) % HGB Calcium 9.2 (8.6-10.4) mg/dl AST 12 (0-37) U/l ALT 12 (0-40) U/l Alkaline Phosphatase 100 (39-117) U/L Total Protein 7.0 (5.9-8.4) gm/dL Albumin 3.1 L (3.2-5.2) gm/dL Calcium panel 02/13/20 Range/Units 11:31 Calcium 9.2 (8.6-10.4) mg/dl Albumin 3.1 L (3.2-5.2) gm/dL Pituitary panel 02/13/20 Range/Units 11:31 Sodium 137 (133-145) mmol/L Potassium 4.6 (3.3-5.1) mmol/L Chloride 99 (96-108) mmol/L Carbon Dioxide 23 (22-30) mmol/L BUN 40 H (8-23) mg/dl Creatinine 1.5 H (0.7-1.2) mg/dl Glucose 235 H (70-105) mg/dL Calcium 9.2 (8.6-10.4) mg/dl Adrenal panel 02/13/20 Range/Units 11:31 Sodium 137 (133-145) mmol/L Potassium 4.6 (3.3-5.1) mmol/L Chloride 99 (96-108) mmol/L Carbon Dioxide 23 (22-30) mmol/L BUN 40 H (8-23) mg/dl Creatinine 1.5 H (0.7-1.2) mg/dl Glucose 235 H (70-105) mg/dL Calcium 9.2 (8.6-10.4) mg/dl Total Bilirubin 0.3 (0.0-1.0) mg/dL AST 12 (0-37) U/l ALT 12 (0-40) U/l Alkaline Phosphatase 100 (39-117) U/L Total Protein 7.0 (5.9-8.4) gm/dL Albumin 3.1 L (3.2-5.2) gm/dL All other labs normal. A/P Narrative A/P Narrative: Assessment: SEPSIS, CSSSI Moisture associated dermatitis of left leg Post phlebitis syndrome Super morbid obesity IDDM PAD Plan: See wound care orders. IV antibiotics Daily MIST therapy GCB soaked dressings. Monitor progress. Consider Versa Jet debridement Await correction of coagulopathy. Time Spent With Patient Time: Total time spent is greater than 50% in coordination of care (as documented) at patient's floor/unit and/or counseling patient: Total time spent with greater than 50% in coordination of care (as documented) at patient's floor/unit and/or counseling patient:: Greater than 35 minutes
[2020-02-13] MEDS: GENTAMICIN SULFATE 40 MG, CLINDAMYCIN 300 MG, BACITRACIN 25,000 UNIT in SODIUM CHLORIDE... IRR SCH (20:29)
[2020-02-13] MEDS ORDERED: HEPARIN 5,000 UNIT/ML VIAL SQ SCH (21:00)
[2020-02-14] MEDS: PIPERACILLIN SODIUM/TAZOBACTAM 3.375 GM in DEXTROSE 5% IN WATER 50 ML IV SCH ×5 (00:25→23:50)
[2020-02-14] MEDS: HYDROCODONE/APAP 7.5/325MG TABLET PO PRN ×4 (01:31→21:39)
[2020-02-14] MEDS: 0.9 % SODIUM CHLORIDE 10 ML SYRINGE IV SCH ×3 (06:10→21:50)
[2020-02-14 06:45] LABS: Basophils # (Auto) 0.05 K/mcL (0.00-0.30); Basophils % (Auto) 0.9 % (0.0-2.0); Eosinophils # (Auto) 0.76 K/mcL (0.00-0.70); Eosinophils % (Auto) 13.9 % (0.0-7.0); Granulocytes % (Auto) 60.5 % (38.0-78.0); Hematocrit 35.6 % (40.1-51.0); Hemoglobin 11.2 g/dL (13.7-17.5); Lymphocytes # (Auto) 1.01 K/mcL (1.50-4.80); Lymphocytes % (Auto) 18.5 % (15.5-49.0); Mean Cell Volume 88.8 fL (80.0-100.0); Mean Corpuscular HGB Conc 31.5 g/dL (31.0-36.0); Mean Platelet Volume 10.6 fL (7.4-10.4); Monocytes # (Auto) 0.34 K/mcL (0.10-0.90); Monocytes % (Auto) 6.2 % (1.0-12.0); Platelet Count 159 K/mcL (140-440); RBC 4.01 M/mcL (4.63-6.08); Red Cell Distribution Width 15.8 % (11.5-14.5); WBC 5.5 K/mcL (4.50-11.00)
[2020-02-14 07:16] LABS: INR 3.9 (0.9-1.1); Prothrombin Time 38.8 sec (11.9-14.5)
--- NOTE | 2020-02-14 07:22 | Internal Med Progress Note ---
SUBJECTIVE Subjective Patient information: Note initiated : 02/14/20 at 7:18 am Service Date, if different from initiated Date: [] Patient: Len Villar 69 y/o M admitted on 02/13/20 for 4 wounds on l leg, weeping edema. Chief Complaint: [] Interval history: History of present illness: Mr. Villar is a 69 year old M Presents to the ED from wound care clinic for worsening diabetic foot wound. Patient has a left foot diabetic wound that is been seeing wound care for and when he was seen at the clinic today is found to have some worsening in erythema and purulence and cellulitic appearance and thus failing outpatient therapy. Dr. Pradhan sent him to the ED and stated he will likely need surgical I&D and IV antibiotics. Patient states he has been dealing with this for months and also it is uncomfortable at times. Denies fever chills 02/13 Supple. No new issues or complaints. Dr. Pradhan pending imaging studies before I&D. Review of Systems: denies headache/fever/chills/nausea/vomiting/chest or abdominal pain/cough/dyspnea/diarrhea. Otherwise see above. Constitutional Vitals: Vital Signs Temp Pulse Resp BP Pulse Ox 98.3 F 65 16 126/72 97 02/14/20 07:02 02/14/20 07:02 02/14/20 07:02 02/14/20 07:02 02/14/20 07:02 Period Temp Pulse Resp BP Sys/Burks Pulse Ox Last 24 Hr 96.9 F-98.3 F 60-72 16-20 106-140/61-85 97-99 Intake and Output 02/13/20 02/14/20 02/14/20 21:59 05:59 13:59 Intake Total 1240 450 Balance 1240 450 Weight 189.874 kg Intake & Output: Intake & Output 02/13/20 02/14/20 02/14/20 21:59 05:59 13:59 Intake Total 1240 450 Balance 1240 450 Weight 189.874 kg Intake: IV 100 50 Zosyn 3.375 gm In Dextrose 5% 100 50 in Water 50 ml @ 100 mls/hr IV Q6H [facility] Rx#:[id number] Oral 1140 400 Other: Meal Nourishment/Supplement Percent of Meal Consumed 100% Feeding Ability Independent Urine Appearance Clear Clear Urine Color Bright Yellow Bright Yellow Urine Odor Strong Normal # Voids 1 1 Exam: General: Alert, Awake, No acute Distress, obese Eyes/N/T: EOMI, , Head/Neck: neck supple, CV: Regular with occasional irregularity, Pulm: Clear b/l, occasional exp wheeze, no rhonchi/rales Abd: soft, nontender, +BS x4 Ext: no clubbing/cyanosis, b/l LE edema 1+ L>R, left foot in dressings Neuro: Alert, no focal deficits, moves all extremities, Skin: warm/dry OBJ DATA Labs CBC & Chem 7: 02/14/20 05:00 02/14/20 05:00 Labs: Abnormal Lab Results 02/14/20 02/14/20 02/13/20 05:00 05:00 11:33 RBC 4.01 L Hgb 11.2 L Hct 35.6 L RDW 15.8 H MPV 10.6 H Eos % (Auto) 13.9 H Lymph # (Auto) 1.01 L Eos # (Auto) 0.76 H ESR PT 38.8 H INR 3.9 H BUN Creatinine Glucose Hemoglobin A1c 8.2 H C-Reactive Protein Albumin Globulin Albumin/Globulin Ratio 02/13/20 02/13/20 02/13/20 11:33 11:33 11:31 RBC Hgb Hct RDW MPV Eos % (Auto) Lymph # (Auto) Eos # (Auto) ESR 61 H PT 40.6 H INR 4.1 H BUN 40 H Creatinine 1.5 H Glucose 235 H Hemoglobin A1c C-Reactive Protein 3.2 H Albumin 3.1 L Globulin 3.9 H Albumin/Globulin Ratio 0.8 L 02/13/20 11:31 RBC 4.14 L Hgb 11.5 L Hct 36.9 L RDW 15.9 H MPV Eos % (Auto) 11.3 H Lymph # (Auto) 1.09 L Eos # (Auto) ESR PT INR BUN Creatinine Glucose Hemoglobin A1c C-Reactive Protein Albumin Globulin Albumin/Globulin Ratio Meds: Medications Acetaminophen (Tylenol) 650 mg PO Q6HP PRN PRN Reason: PAIN/FEVER > 101 Hydrocodone Bitart/Acetaminophen ([place] 7.5/325mg) 1 tab PO Q4HP PRN; Protocol PRN Reason: Pain Last Admin: 02/14/20 06:10 Dose: 1 tab Documented by: Albuterol Sulfate (Ventolin) 2 puff INH Q4HP PRN PRN Reason: Bronchodilation Albuterol/Ipratropium (Duoneb) 3 ml NEB Q4HP PRN PRN Reason: Shortness Of Breath Aspirin (Aspirin) 81 mg PO DAILY [facility] Atorvastatin Calcium (Lipitor) 80 mg PO DAILY [facility] Bisacodyl (Dulcolax) 10 mg PO DAILYP PRN PRN Reason: Constipation Carvedilol (Coreg) 25 mg PO BIDCC [facility] Last Admin: 02/13/20 17:02 Dose: 25 mg Documented by: Dextrose (Dextrose 50%) 0 ml IV UD PRN PRN Reason: Hypoglycemia Diagnostic Test (Pha) (Accu-Chek) 1 each FS ACHS [facility] Last Admin: 02/13/20 20:04 Dose: 1 each Documented by: Docusate Sodium (Colace) 100 mg PO BID [facility] Last Admin: 02/13/20 20:05 Dose: Not Given Documented by: Furosemide (Lasix) 60 mg PO BIDD [facility] Gabapentin (Neurontin) 100 mg PO TID [facility] Last Admin: 02/13/20 20:05 Dose: 100 mg Documented by: Glucose (Insta-Glucose) 15 gm PO PRN PRN PRN Reason: Hypoglycemia Hydralazine HCl (Apresoline) 0 mg IV Q2HP PRN PRN Reason: Hypertension Gentamicin Sulfate 40 mg/Clindamycin Phosphate 300 mg/Bacitracin 25,000 unit/ Sodium Chloride 503 mls @ 0 mls/hr IRR BID [facility] Last Admin: 02/13/20 20:29 Dose: Not Given Documented by: Potassium Chloride 40 meq/ (Dextrose) 520 mls @ 130 mls/hr IV UD PRN PRN Reason: Potassium < 3 Magnesium Sulfate (Magnesium Sulfate) 2 gm in 50 mls @ 50 mls/hr IV UD PRN PRN Reason: Magnesium </= 1.6 Piperacillin Sod/Tazobactam (Sod 3.375 gm/ Dextrose) 50 mls @ 100 mls/hr IV Q6H [facility]; Protocol Last Admin: 02/14/20 06:10 Dose: 100 mls/hr Documented by: Insulin Glargine (Lantus) 12 unit SQ DAILY [facility] Insulin Human Lispro (Humalog) 0 unit SQ ACHS [facility]; Protocol Last Admin: 02/13/20 20:16 Dose: 6 unit Documented by: Labetalol HCl (Trandate) 0 mg IV Q2HP PRN PRN Reason: Hypertension Lidocaine (Lmx 4, Anecream) 1 gm TOPICAL DAILYP PRN PRN Reason: Pain Magnesium Hydroxide (Milk Of Magnesia) 15 ml PO DAILYP PRN PRN Reason: Constipation Melatonin (Melatonin 3mg Tablet) 6 mg PO HS [facility] Last Admin: 02/13/20 20:05 Dose: 6 mg Documented by: Metoclopramide HCl (Reglan) 10 mg IV Q6HP PRN PRN Reason: Nausea And Vomiting Metoprolol Tartrate (Lopressor) 5 mg IV Q2HP PRN PRN Reason: Tachyarrhythmias HR>110 Ondansetron HCl (Zofran) 4 mg IV Q4HP PRN PRN Reason: Nausea And Vomiting Oxycodone HCl (Oxycontin) 10 mg PO BID [facility] Last Admin: 02/13/20 20:05 Dose: 10 mg Documented by: Budesonide- Formoterol [ Symbicort] 160-4.5 Mg/Actuation Inhaler 1 dose INH BID [facility] Last Admin: 02/13/20 20:18 Dose: Not Given Documented by: Polyethylene Glycol (Miralax) 17 gm PO BID [facility] Last Admin: 02/13/20 20:18 Dose: Not Given Documented by: Potassium Chloride (Kdur) 40 meq PO UD PRN PRN Reason: Potssium is 3-3.5 Potassium Chloride (Kdur) 40 meq PO UD PRN PRN Reason: Potassium < 3 Senna (Senokot) 2 tab PO DAILYP PRN PRN Reason: Constipation Sodium Chloride (Saline Flush) 10 ml IV Q8 [facility] Last Admin: 02/14/20 06:10 Dose: 10 ml Documented by: Spironolactone (Aldactone) 25 mg PO QDAY [facility] Tizanidine HCl (Zanaflex) 2 mg PO DAILY [facility] Trazodone HCl (Desyrel) 150 mg PO QHS [facility] Last Admin: 02/13/20 20:06 Dose: 150 mg Documented by: Warfarin Sodium (Coumadin Per Pharmacy) 1 order PO UD [facility] A/P Narrative A/P Narrative: A: *DM Left foot wound with cellulitis and osteomyelitis: failed outpt treatment -vascular imaging showing *DM: A1c 8.2 *Morbid obesity: *COPD (not on home oxygen): *LUIS on CPAP: *Tobacco abuse: *CKD stage III: *HTN: *h/o solid/diastolic heart failure: *Atrial fibrillation: P: -Zosyn, mrsa screen neg -WC/BC -[facility] for I&D -elevate legs -cont home diuretics -basal and SSI -pt/ot -Smoking cessation counseling -ppx: warfarin per pharm (holding for supratherapeutic level) Time Spent With Patient Time: Total time spent is greater than 50% in coordination of care (as documented) at patient's floor/unit and/or counseling patient:
[2020-02-14 07:23] LABS: ALT/SGPT 11 U/l (0-40); AST/SGOT 11 U/l (0-37); Albumin 2.9 gm/dL (3.2-5.2); Albumin/Globulin Ratio 0.8 (1.0-2.3); Alkaline Phosphatase 95 U/L (39-117); Bilirubin,Direct < 0.2 mg/dL (0.0-0.3); Bilirubin,Total 0.2 mg/dL (0.0-1.0); Blood Urea Nitrogen 36 mg/dl (8-23); Calcium 8.7 mg/dl (8.6-10.4); Carbon Dioxide 24 mmol/L (22-30); Chloride 100 mmol/L (96-108); Globulin 3.6 gm/dL (2.2-3.7); Glomerular Filtration Rate 56; Glucose 131 mg/dL (70-105); Lactate Dehydrogenase 157 U/L (94-250); Phosphorous 3.7 mg/dL (2.7-4.5); Triglycerides 96 mg/dl (<150); Uric Acid 8.3 mg/dL (2.5-8.0)
[2020-02-14] MEDS: INSULIN LISPRO 1 UNIT/0.01 ML UNIT SQ SCH ×4 (07:47→21:40)
[2020-02-14] MEDS ORDERED: FUROSEMIDE 20 MG TABLET PO SCH (08:00)
[2020-02-14] MEDS: SPIRONOLACTONE 25 MG TABLET PO SCH (08:20)
[2020-02-14] MEDS: tiZANidine 4 MG TABLET PO SCH (08:21)
[2020-02-14] MEDS: CARVEDILOL 12.5 MG TABLET PO SCH ×2 (08:23→17:14)
[2020-02-14] MEDS: oxyCODONE 10 MG TAB.ER.12H PO SCH ×2 (08:23→20:13)
[2020-02-14] MEDS: ATORVASTATIN 40 MG TABLET PO SCH (08:23)
[2020-02-14] MEDS: ASPIRIN 81 MG TAB.CHEW PO SCH (08:24)
[2020-02-14] MEDS: GABAPENTIN 100 MG CAPSULE PO SCH ×3 (08:24→20:13)
[2020-02-14] MEDS: DOCUSATE SODIUM 100 MG CAPSULE PO SCH ×2 (08:27→21:50)
[2020-02-14] MEDS: POLYETHYLENE GLYCOL 3350 17 GM PACKET PO SCH ×2 (08:28→21:49)
[2020-02-14] MEDS ORDERED: NON FORMULARY MEDICATION 1 DOSE MISCELL (Insulin Glargine [Basaglar Kwikpen U-100 Insulin] SUB-Q SCH (09:00)
[2020-02-14] MEDS ORDERED: INSULIN GLARGINE, HUMAN 1 UNIT/0.01 ML SQ SCH (09:00)
[2020-02-14] MEDS: GENTAMICIN SULFATE 40 MG, CLINDAMYCIN 300 MG, BACITRACIN 25,000 UNIT in SODIUM CHLORIDE... IRR SCH ×2 (12:18→21:40)
[2020-02-14] MEDS: BUDESONIDE INH SCH ×2 (12:19→21:49)
[2020-02-14] MEDS: FORMOTEROL INH SCH ×2 (12:19→21:49)
[2020-02-14] MEDS: MELATONIN 3 MG TABLET PO SCH (21:39)
[2020-02-14] MEDS: traZODone HCL 150 MG TABLET PO SCH (21:39)
[2020-02-15] MEDS: HYDROCODONE/APAP 7.5/325MG TABLET PO PRN ×4 (01:30→21:33)
[2020-02-15] MEDS: 0.9 % SODIUM CHLORIDE 10 ML SYRINGE IV SCH ×3 (06:05→23:27)
[2020-02-15] MEDS: PIPERACILLIN SODIUM/TAZOBACTAM 3.375 GM in DEXTROSE 5% IN WATER 50 ML IV SCH ×4 (06:09→23:28)
[2020-02-15 07:28] LABS: INR 2.5 (0.9-1.1); Prothrombin Time 27.5 sec (11.9-14.5)
--- NOTE | 2020-02-15 07:36 | Internal Med Progress Note ---
SUBJECTIVE Subjective Patient information: Note initiated : 02/15/20 at 7:31 am Service Date, if different from initiated Date: [] Patient: Len Villar 69 y/o M admitted on 02/13/20 for 4 wounds on l leg, weeping edema. Chief Complaint: [] Interval history: History of present illness: Mr. Villar is a 69 year old M Presents to the ED from wound care clinic for worsening diabetic foot wound. Patient has a left foot diabetic wound that is been seeing wound care for and when he was seen at the clinic today is found to have some worsening in erythema and purulence and cellulitic appearance and thus failing outpatient therapy. Dr. Pradhan sent him to the ED and stated he will likely need surgical I&D and IV antibiotics. Patient states he has been dealing with this for months and also it is uncomfortable at times. Denies fever chills 02/13 Supple. No new issues or complaints. Dr. Pradhan pending imaging studies before I&D. 02/14 Doing well. No new complaints. Continue mist treatments per wound care surgeon with eventual I&D. INR coming down. Review of Systems: denies headache/fever/chills/nausea/vomiting/chest or abdominal pain/cough/dyspnea/diarrhea. Otherwise see above. Constitutional Vitals: Vital Signs Temp Pulse Resp BP Pulse Ox 98.1 F 61 18 112/65 97 02/15/20 03:52 02/15/20 03:52 02/15/20 03:52 02/15/20 03:52 02/15/20 03:52 Period Temp Pulse Resp BP Sys/Burks Pulse Ox Last 24 Hr 97.3 F-99.2 F 60-86 16-18 101-149/63-78 93-98 Intake and Output 02/14/20 02/15/20 02/15/20 21:59 05:59 13:59 Intake Total 650 450 Balance 650 450 Weight 189.874 kg Intake & Output: Intake & Output 02/14/20 02/15/20 02/15/20 21:59 05:59 13:59 Intake Total 650 450 Balance 650 450 Weight 189.874 kg Intake: IV 50 50 Zosyn 3.375 gm In Dextrose 5% 50 50 in Water 50 ml @ 100 mls/hr IV Q6H [facility] Rx#:[id number] Oral 600 400 Other: Urine Appearance Clear Urine Color Bright Yellow Urine Odor Normal # Voids 3 1 Exam: General: Alert, Awake, No acute Distress, obese Eyes/N/T: EOMI, , Head/Neck: neck supple, CV: Regular with occasional irregularity, Pulm: Clear b/l, occasional exp wheeze, no rhonchi/rales Abd: soft, nontender, +BS x4 Ext: no clubbing/cyanosis, b/l LE edema 1+ L>R, left foot in dressings Neuro: Alert, no focal deficits, moves all extremities, Skin: warm/dry OBJ DATA Labs CBC & Chem 7: 02/14/20 05:00 02/14/20 05:00 Labs: Abnormal Lab Results 02/15/20 02/14/20 02/14/20 05:21 05:00 05:00 RBC 4.01 L Hgb 11.2 L Hct 35.6 L RDW 15.8 H MPV 10.6 H Eos % (Auto) 13.9 H Lymph # (Auto) 1.01 L Eos # (Auto) 0.76 H ESR PT 27.5 H INR 2.5 H BUN 36 H Creatinine 1.3 H Glucose 131 H Hemoglobin A1c Uric Acid 8.3 H C-Reactive Protein Albumin 2.9 L Globulin Albumin/Globulin Ratio 0.8 L 02/14/20 02/13/20 02/13/20 05:00 11:33 11:33 RBC Hgb Hct RDW MPV Eos % (Auto) Lymph # (Auto) Eos # (Auto) ESR PT 38.8 H 40.6 H INR 3.9 H 4.1 H BUN Creatinine Glucose Hemoglobin A1c 8.2 H Uric Acid C-Reactive Protein Albumin Globulin Albumin/Globulin Ratio 02/13/20 02/13/20 02/13/20 11:33 11:31 11:31 RBC 4.14 L Hgb 11.5 L Hct 36.9 L RDW 15.9 H MPV Eos % (Auto) 11.3 H Lymph # (Auto) 1.09 L Eos # (Auto) ESR 61 H PT INR BUN 40 H Creatinine 1.5 H Glucose 235 H Hemoglobin A1c Uric Acid C-Reactive Protein 3.2 H Albumin 3.1 L Globulin 3.9 H Albumin/Globulin Ratio 0.8 L Meds: Medications Acetaminophen (Tylenol) 650 mg PO Q6HP PRN PRN Reason: PAIN/FEVER > 101 Last Admin: 02/14/20 23:55 Dose: 650 mg Documented by: Hydrocodone Bitart/Acetaminophen ([place] 7.5/325mg) 1 tab PO Q4HP PRN; Protocol PRN Reason: Pain Last Admin: 02/15/20 05:34 Dose: 1 tab Documented by: Albuterol Sulfate (Ventolin) 2 puff INH Q4HP PRN PRN Reason: Bronchodilation Albuterol/Ipratropium (Duoneb) 3 ml NEB Q4HP PRN PRN Reason: Shortness Of Breath Aspirin (Aspirin) 81 mg PO DAILY [facility] Last Admin: 02/14/20 08:24 Dose: 81 mg Documented by: Atorvastatin Calcium (Lipitor) 80 mg PO DAILY [facility] Last Admin: 02/14/20 08:23 Dose: 80 mg Documented by: Bisacodyl (Dulcolax) 10 mg PO DAILYP PRN PRN Reason: Constipation [facility] Last Admin: 02/14/20 17:14 Dose: 25 mg Documented by: Dextrose (Dextrose 50%) 0 ml IV UD PRN PRN Reason: Hypoglycemia Diagnostic Test (Pha) (Accu-Chek) 1 each FS ACHS [facility] Last Admin: 02/14/20 21:30 Dose: 1 each Documented by: Docusate Sodium (Colace) 100 mg PO BID [facility] Last Admin: 02/14/20 21:50 Dose: Not Given Documented by: Furosemide (Lasix) 60 mg PO BIDD [facility] Gabapentin (Neurontin) 100 mg PO TID [facility] Last Admin: 02/14/20 20:13 Dose: 100 mg Documented by: Glucose (Insta-Glucose) 15 gm PO PRN PRN PRN Reason: Hypoglycemia Hydralazine HCl (Apresoline) 0 mg IV Q2HP PRN PRN Reason: Hypertension Gentamicin Sulfate 40 mg/Clindamycin Phosphate 300 mg/Bacitracin 25,000 unit/ Sodium Chloride 503 mls @ 0 mls/hr IRR BID [facility] Last Admin: 02/14/20 21:40 Dose: 60 mls/hr Documented by: Potassium Chloride 40 meq/ (Dextrose) 520 mls @ 130 mls/hr IV UD PRN PRN Reason: Potassium < 3 Magnesium Sulfate (Magnesium Sulfate) 2 gm in 50 mls @ 50 mls/hr IV UD PRN PRN Reason: Magnesium </= 1.6 Piperacillin Sod/Tazobactam (Sod 3.375 gm/ Dextrose) 50 mls @ 100 mls/hr IV Q6H [facility]; Protocol Last Admin: 02/15/20 06:09 Dose: 100 mls/hr Documented by: Insulin Glargine (Lantus) 12 unit SQ DAILY [facility] Last Admin: 02/14/20 08:20 Dose: 12 units Documented by: Insulin Human Lispro (Humalog) 0 unit SQ ACHS [facility]; Protocol Last Admin: 02/14/20 21:40 Dose: 6 unit Documented by: Labetalol HCl (Trandate) 0 mg IV Q2HP PRN PRN Reason: Hypertension Lidocaine (Lmx 4, Anecream) 1 gm TOPICAL DAILYP PRN PRN Reason: Pain Magnesium Hydroxide (Milk Of Magnesia) 15 ml PO DAILYP PRN PRN Reason: Constipation Melatonin (Melatonin 3mg Tablet) 6 mg PO HS [facility] Last Admin: 02/14/20 21:39 Dose: 6 mg Documented by: Metoclopramide HCl (Reglan) 10 mg IV Q6HP PRN PRN Reason: Nausea And Vomiting Metoprolol Tartrate (Lopressor) 5 mg IV Q2HP PRN PRN Reason: Tachyarrhythmias HR>110 Ondansetron HCl (Zofran) 4 mg IV Q4HP PRN PRN Reason: Nausea And Vomiting Oxycodone HCl (Oxycontin) 10 mg PO BID [facility] Last Admin: 02/14/20 20:13 Dose: 10 mg Documented by: Budesonide- Formoterol [ Symbicort] 160-4.5 Mg/Actuation Inhaler 1 dose INH BID [facility] Last Admin: 02/14/20 21:49 Dose: Not Given Documented by: Polyethylene Glycol (Miralax) 17 gm PO BID [facility] Last Admin: 02/14/20 21:49 Dose: Not Given Documented by: Potassium Chloride (Kdur) 40 meq PO UD PRN PRN Reason: Potssium is 3-3.5 Potassium Chloride (Kdur) 40 meq PO UD PRN PRN Reason: Potassium < 3 Senna (Senokot) 2 tab PO DAILYP PRN PRN Reason: Constipation Sodium Chloride (Saline Flush) 10 ml IV Q8 [facility] Last Admin: 02/15/20 06:05 Dose: 10 ml Documented by: Spironolactone (Aldactone) 25 mg PO QDAY [facility] Last Admin: 02/14/20 08:20 Dose: 25 mg Documented by: Tizanidine HCl (Zanaflex) 2 mg PO DAILY [facility] Last Admin: 02/14/20 08:21 Dose: 2 mg Documented by: Trazodone HCl (Desyrel) 150 mg PO QHS [facility] Last Admin: 02/14/20 21:39 Dose: 150 mg Documented by: Warfarin Sodium (Coumadin Per Pharmacy) 1 order PO UD [facility] A/P Narrative A/P Narrative: A: *DM Left foot wound with cellulitis and osteomyelitis: failed outpt treatment -vascular imaging showing *?bacteremia vs contaminant: 05/25 bottles with GPC *DM: A1c 8.2 *Morbid obesity: *COPD (not on home oxygen): *LUIS on CPAP: *Tobacco abuse: *CKD stage III: *HTN: *h/o systolic(30)/diastolic heart failure: *Atrial fibrillation: P: -Zosyn, mrsa screen neg -WC/BC -[facility] for I&D -elevate legs -cont home diuretics -basal (increase) and SSI -pt/ot -Smoking cessation counseling -ppx: warfarin per pharm (holding for supratherapeutic level) Time Spent With Patient Time: Total time spent is greater than 50% in coordination of care (as do cumented) at patient's floor/unit and/or counseling patient:
[2020-02-15] MEDS: INSULIN LISPRO 1 UNIT/0.01 ML UNIT SQ SCH ×4 (08:22→21:33)
[2020-02-15] MEDS ORDERED: INSULIN GLARGINE, HUMAN 1 UNIT/0.01 ML SQ SCH (09:00)
[2020-02-15] MEDS: oxyCODONE 10 MG TAB.ER.12H PO SCH ×2 (09:06→20:11)
[2020-02-15] MEDS: ASPIRIN 81 MG TAB.CHEW PO SCH (09:07)
[2020-02-15] MEDS: tiZANidine 4 MG TABLET PO SCH (09:08)
[2020-02-15] MEDS: ATORVASTATIN 40 MG TABLET PO SCH (09:08)
[2020-02-15] MEDS: GABAPENTIN 100 MG CAPSULE PO SCH ×3 (09:08→20:12)
[2020-02-15] MEDS: FUROSEMIDE 20 MG TABLET PO SCH ×2 (09:08→15:38)
[2020-02-15] MEDS: CARVEDILOL 12.5 MG TABLET PO SCH ×2 (09:09→17:10)
[2020-02-15] MEDS: SPIRONOLACTONE 25 MG TABLET PO SCH (09:09)
[2020-02-15] MEDS: POLYETHYLENE GLYCOL 3350 17 GM PACKET PO SCH ×2 (09:14→21:35)
[2020-02-15] MEDS: BUDESONIDE INH SCH ×2 (09:14→21:36)
[2020-02-15] MEDS: DOCUSATE SODIUM 100 MG CAPSULE PO SCH ×2 (09:14→21:33)
[2020-02-15] MEDS: FORMOTEROL INH SCH ×2 (09:14→21:36)
[2020-02-15] MEDS: GENTAMICIN SULFATE 40 MG, CLINDAMYCIN 300 MG, BACITRACIN 25,000 UNIT in SODIUM CHLORIDE... IRR SCH ×2 (11:51→22:15)
[2020-02-15] MEDS ORDERED: WARFARIN 2 MG TABLET PO ONE (15:00)
--- NOTE | 2020-02-15 18:19 | General Surgery Progress Note ---
SUBJECTIVE Subjective Patient information: Note initiated : 02/15/20 at 6:14 pm Service Date, if different from initiated Date: [] Patient: Len Villar 69 y/o M admitted on 02/13/20 for 4 wounds on l leg, weeping edema. Chief Complaint: [] Additional PMFSH (Level 3 Only): Satisfactory progress. On MIST treatments and IV antibiotics for CSSSI Left leg . PAD / VLU Constitutional Vitals: Vital Signs Temp Pulse Resp BP Pulse Ox 97.5 F 56 L 16 150/67 98 02/15/20 16:41 02/15/20 16:41 02/15/20 16:41 02/15/20 16:41 02/15/20 16:41 Period Temp Pulse Resp BP Sys/Burks Pulse Ox Last 24 Hr 97.3 F-98.7 F 56-63 14-18 101-150/61-79 95-98 Intake and Output 02/15/20 02/15/20 02/15/20 05:59 13:59 21:59 Intake Total 450 820 800 Balance 450 820 800 Intake & Output: Intake & Output 02/15/20 02/15/20 02/15/20 05:59 13:59 21:59 Intake Total 450 820 800 Balance 450 820 800 Intake: Nourishment/Supplement quantity 240 (ml) IV 50 100 Zosyn 3.375 gm In Dextrose 5% 50 100 in Water 50 ml @ 100 mls/hr IV Q6H [facility] Rx#:[id number] Oral 400 480 800 Other: Meal Lunch Dinner Percent of Meal Consumed 100% 100% Feeding Ability Independent Independent Urine Appearance Clear Urine Color Dark Yellow Urine Odor Normal Stool Size Smear Stool Color Brown Stool Consistency Soft # Voids 1 1 # Bowel Movements 1 1 Exam: AVSS No changes BERNIE. Next MIST treatment dues later at night. Drainage for LEFT leg is less with elevation and MIST. On IV antibiotics. PT trending down. A/P Narrative A/P Narrative: Assessment; No interval changes. On IV antibiotics and local wound care for CSSI Left leg. Plan: Continue present treatment. Reassess again Provisionally for OR debridement on 02/17/2020 Time Spent With Patient Time: Total time spent is greater than 50% in coordination of care (as documented) at patient's floor/unit and/or counseling patient: Total time spent with greater than 50% in coordination of care (as documented) at patient's floor/unit and/or counseling patient:: less than 15 minutes
[2020-02-15] MEDS: MELATONIN 3 MG TABLET PO SCH (21:33)
[2020-02-15] MEDS: traZODone HCL 150 MG TABLET PO SCH (21:33)
[2020-02-16] MEDS: HYDROCODONE/APAP 7.5/325MG TABLET PO PRN ×2 (05:08→13:23)
[2020-02-16] MEDS: 0.9 % SODIUM CHLORIDE 10 ML SYRINGE IV SCH ×3 (06:05→22:10)
[2020-02-16] MEDS: PIPERACILLIN SODIUM/TAZOBACTAM 3.375 GM in DEXTROSE 5% IN WATER 50 ML IV SCH ×3 (06:09→17:43)
[2020-02-16 06:22] LABS: INR 1.6 (0.9-1.1); Prothrombin Time 19.1 sec (11.9-14.5)
[2020-02-16 06:31] LABS: Blood Urea Nitrogen 35 mg/dl (8-23); Calcium 8.9 mg/dl (8.6-10.4); Carbon Dioxide 23 mmol/L (22-30); Chloride 101 mmol/L (96-108); Glomerular Filtration Rate 61; Glucose 180 mg/dL (70-105)
[2020-02-16] MEDS: INSULIN LISPRO 1 UNIT/0.01 ML UNIT SQ SCH ×4 (07:38→21:07)
--- NOTE | 2020-02-16 07:45 | Internal Med Progress Note ---
SUBJECTIVE Subjective Patient information: Note initiated : 02/16/20 at 7:43 am Service Date, if different from initiated Date: [] Patient: Len Villar 69 y/o M admitted on 02/13/20 for 4 wounds on l leg, weeping edema. Chief Complaint: [] Interval history: History of present illness: Mr. Villar is a 69 year old M Presents to the ED from wound care clinic for worsening diabetic foot wound. Patient has a left foot diabetic wound that is been seeing wound care for and when he was seen at the clinic today is found to have some worsening in erythema and purulence and cellulitic appearance and thus failing outpatient therapy. Dr. Pradhan sent him to the ED and stated he will likely need surgical I&D and IV antibiotics. Patient states he has been dealing with this for months and also it is uncomfortable at times. Denies fever chills 02/13 Supple. No new issues or complaints. Dr. Pradhan pending imaging studies before I&D. 02/14 Doing well. No new complaints. Continue mist treatments per wound care surgeon with eventual I&D. INR coming down. 02/15 Doing well. No new events overnight complaints. Creatinine 1.2. No other lab abnormalities. Review of Systems: denies headache/fever/chills/nausea/vomiting/chest or abdominal pain/cough/dyspnea/diarrhea. Otherwise see above. Constitutional Vitals: Vital Signs Temp Pulse Resp BP Pulse Ox 98.0 F 62 18 124/77 97 02/16/20 06:49 02/16/20 06:49 02/16/20 06:49 02/16/20 06:49 02/16/20 06:55 Period Temp Pulse Resp BP Sys/Burks Pulse Ox Last 24 Hr 97.2 F-98.3 F 56-68 14-18 110-150/60-77 95-98 Intake and Output 02/15/20 02/16/20 02/16/20 21:59 05:59 13:59 Intake Total 800 500 Balance 800 500 Weight 190.917 kg Intake & Output: Intake & Output 02/15/20 02/16/20 02/16/20 21:59 05:59 13:59 Intake Total 800 500 Balance 800 500 Weight 190.917 kg Intake: IV 100 Zosyn 3.375 gm In Dextrose 5% 100 in Water 50 ml @ 100 mls/hr IV Q6H [facility] Rx#:[id number] Oral 800 400 Other: Meal Dinner Percent of Meal Consumed 100% Feeding Ability Independent Urine Appearance Clear Urine Color Dark Yellow Urine Odor Normal Stool Size Smear Stool Color Brown Stool Consistency Soft # Voids 1 1 # Bowel Movements 1 Exam: General: Alert, Awake, No acute Distress, obese Eyes/N/T: EOMI, , Head/Neck: neck supple, CV: Regular with occasional irregularity, Pulm: Clear b/l, occasional exp wheeze, no rhonchi/rales Abd: soft, nontender, +BS x4 Ext: no clubbing/cyanosis, b/l LE mild edema, left foot in dressings Neuro: Alert, no focal deficits, moves all extremities, Skin: warm/dry OBJ DATA Labs CBC & Chem 7: 02/14/20 05:00 02/16/20 05:12 Labs: Abnormal Lab Results 02/16/20 02/16/20 02/15/20 05:12 05:12 05:21 RBC Hgb Hct RDW MPV Eos % (Auto) Lymph # (Auto) Eos # (Auto) ESR PT 19.1 H 27.5 H INR 1.6 H 2.5 H BUN 35 H Creatinine Glucose 180 H Hemoglobin A1c Uric Acid C-Reactive Protein Albumin Globulin Albumin/Globulin Ratio 02/14/20 02/14/20 02/14/20 05:00 05:00 05:00 RBC 4.01 L Hgb 11.2 L Hct 35.6 L RDW 15.8 H MPV 10.6 H Eos % (Auto) 13.9 H Lymph # (Auto) 1.01 L Eos # (Auto) 0.76 H ESR PT 38.8 H INR 3.9 H BUN 36 H Creatinine 1.3 H Glucose 131 H Hemoglobin A1c Uric Acid 8.3 H C-Reactive Protein Albumin 2.9 L Globulin Albumin/Globulin Ratio 0.8 L 02/13/20 02/13/20 02/13/20 11:33 11:33 11:33 RBC Hgb Hct RDW MPV Eos % (Auto) Lymph # (Auto) Eos # (Auto) ESR 61 H PT 40.6 H INR 4.1 H BUN Creatinine Glucose Hemoglobin A1c 8.2 H Uric Acid C-Reactive Protein Albumin Globulin Albumin/Globulin Ratio 02/13/20 02/13/20 11:31 11:31 RBC 4.14 L Hgb 11.5 L Hct 36.9 L RDW 15.9 H MPV Eos % (Auto) 11.3 H Lymph # (Auto) 1.09 L Eos # (Auto) ESR PT INR BUN 40 H Creatinine 1.5 H Glucose 235 H Hemoglobin A1c Uric Acid C-Reactive Protein 3.2 H Albumin 3.1 L Globulin 3.9 H Albumin/Globulin Ratio 0.8 L Meds: Medications Acetaminophen (Tylenol) 650 mg PO Q6HP PRN PRN Reason: PAIN/FEVER > 101 Last Admin: 02/14/20 23:55 Dose: 650 mg Documented by: Hydrocodone Bitart/Acetaminophen ([place] 7.5/325mg) 1 tab PO Q4HP PRN; Protocol PRN Reason: Pain Last Admin: 02/16/20 05:08 Dose: 1 tab Documented by: Albuterol Sulfate (Ventolin) 2 puff INH Q4HP PRN PRN Reason: Bronchodilation Albuterol/Ipratropium (Duoneb) 3 ml NEB Q4HP PRN PRN Reason: Shortness Of Breath Aspirin (Aspirin) 81 mg PO DAILY [facility] Last Admin: 02/15/20 09:07 Dose: 81 mg Documented by: Atorvastatin Calcium (Lipitor) 80 mg PO DAILY [facility] Last Admin: 02/15/20 09:08 Dose: 80 mg Documented by: Bisacodyl (Dulcolax) 10 mg PO DAILYP PRN PRN Reason: Constipation Carvedilol (Coreg) 25 mg PO BIDCC [facility] Last Admin: 02/15/20 17:10 Dose: 25 mg Documented by: Dextrose (Dextrose 50%) 0 ml IV UD PRN PRN Reason: Hypoglycemia Diagnostic Test (Pha) (Accu-Chek) 1 each FS ACHS [facility] Last Admin: 02/16/20 07:19 Dose: 1 each Documented by: Docusate Sodium (Colace) 100 mg PO BID [facility] Last Admin: 02/15/20 21:33 Dose: Not Given Documented by: Furosemide (Lasix) 60 mg PO BIDD [facility] Last Admin: 02/15/20 15:38 Dose: 60 mg Documented by: Gabapentin (Neurontin) 100 mg PO TID [facility] Last Admin: 02/15/20 20:12 Dose: 100 mg Documented by: Glucose (Insta-Glucose) 15 gm PO PRN PRN PRN Reason: Hypoglycemia Hydralazine HCl (Apresoline) 0 mg IV Q2HP PRN PRN Reason: Hypertension Gentamicin Sulfate 40 mg/Clindamycin Phosphate 300 mg/Bacitracin 25,000 unit/ Sodium Chloride 503 mls @ 0 mls/hr IRR BID [facility] Last Admin: 02/15/20 22:15 Dose: 60 mls/hr Documented by: Potassium Chloride 40 meq/ (Dextrose) 520 mls @ 130 mls/hr IV UD PRN PRN Reason: Potassium < 3 Magnesium Sulfate (Magnesium Sulfate) 2 gm in 50 mls @ 50 mls/hr IV UD PRN PRN Reason: Magnesium </= 1.6 Piperacillin Sod/Tazobactam (Sod 3.375 gm/ Dextrose) 50 mls @ 100 mls/hr IV Q6H [facility]; Protocol Last Admin: 02/16/20 06:09 Dose: 100 mls/hr Documented by: Insulin Glargine (Lantus) 20 unit SQ DAILY [facility] Last Admin: 02/15/20 09:06 Dose: 20 units Documented by: Insulin Human Lispro (Humalog) 0 unit SQ ACHS [facility]; Protocol Last Admin: 02/16/20 07:38 Dose: 6 unit Documented by: Labetalol HCl (Trandate) 0 mg IV Q2HP PRN PRN Reason: Hypertension Lidocaine (Lmx 4, Anecream) 1 gm TOPICAL DAILYP PRN PRN Reason: Pain Magnesium Hydroxide (Milk Of Magnesia) 15 ml PO DAILYP PRN PRN Reason: Constipation Melatonin (Melatonin 3mg Tablet) 6 mg PO HS [facility] Last Admin: 02/15/20 21:33 Dose: 6 mg Documented by: Metoclopramide HCl (Reglan) 10 mg IV Q6HP PRN PRN Reason: Nausea And Vomiting Metoprolol Tartrate (Lopressor) 5 mg IV Q2HP PRN PRN Reason: Tachyarrhythmias HR>110 Ondansetron HCl (Zofran) 4 mg IV Q4HP PRN PRN Reason: Nausea And Vomiting Oxycodone HCl (Oxycontin) 10 mg PO BID [facility] Last Admin: 02/15/20 20:11 Dose: 10 mg Documented by: Budesonide- Formoterol [ Symbicort] 160-4.5 Mg/Actuation Inhaler 1 dose INH BID [facility] Last Admin: 02/15/20 21:36 Dose: Not Given Documented by: Polyethylene Glycol (Miralax) 17 gm PO BID [facility] Last Admin: 02/15/20 21:35 Dose: Not Given Documented by: Potassium Chloride (Kdur) 40 meq PO UD PRN PRN Reason: Potssium is 3-3.5 Potassium Chloride (Kdur) 40 meq PO UD PRN PRN Reason: Potassium < 3 Senna (Senokot) 2 tab PO DAILYP PRN PRN Reason: Constipation Sodium Chloride (Saline Flush) 10 ml IV Q8 [facility] Last Admin: 02/16/20 06:05 Dose: 10 ml Documented by: Spironolactone (Aldactone) 25 mg PO QDAY [facility] Last Admin: 02/15/20 09:09 Dose: 25 mg Documented by: Tizanidine HCl (Zanaflex) 2 mg PO DAILY [facility] Last Admin: 02/15/20 09:08 Dose: 2 mg Documented by: Trazodone HCl (Desyrel) 150 mg PO QHS [facility] Last Admin: 02/15/20 21:33 Dose: 150 mg Documented by: Warfarin Sodium (Coumadin Per Pharmacy) 1 order PO UD [facility] A/P Narrative A/P Narrative: A: *DM Left foot wound with cellulitis and osteomyelitis: failed outpt treatment -vascular imaging showing *?bacteremia vs contaminant, suspect contaminant, awaiting final cx: 05/25 bottles with [facility]PC *DM: A1c 8.2 *Morbid obesity: *COPD (not on home oxygen): *LUIS on CPAP: *Tobacco abuse: *CKD stage III: *HTN: *h/o systolic(30)/diastolic heart failure: *Atrial fibrillation: P: -Zosyn, mrsa screen neg -WC/BC -[facility] for I&D possibly tomorrow -elevate legs -cont home diuretics -basal (increase) and SSI -pt/ot -Smoking cessation counseling -ppx: warfarin per pharm (holding for supratherapeutic level) Time Spent With Patient Time: Total time spent is greater than 50% in coordination of care (as documented) at patient's floor/unit and/or counseling patient:
[2020-02-16] MEDS: tiZANidine 4 MG TABLET PO SCH (09:02)
[2020-02-16] MEDS: GABAPENTIN 100 MG CAPSULE PO SCH ×3 (09:02→20:44)
[2020-02-16] MEDS: ASPIRIN 81 MG TAB.CHEW PO SCH (09:02)
[2020-02-16] MEDS: FUROSEMIDE 20 MG TABLET PO SCH ×2 (09:03→15:48)
[2020-02-16] MEDS: ATORVASTATIN 40 MG TABLET PO SCH (09:03)
[2020-02-16] MEDS: SPIRONOLACTONE 25 MG TABLET PO SCH (09:03)
[2020-02-16] MEDS: CARVEDILOL 12.5 MG TABLET PO SCH ×2 (09:03→17:14)
[2020-02-16] MEDS: oxyCODONE 10 MG TAB.ER.12H PO SCH ×2 (09:03→20:44)
[2020-02-16] MEDS: BUDESONIDE INH SCH ×2 (09:05→21:11)
[2020-02-16] MEDS: POLYETHYLENE GLYCOL 3350 17 GM PACKET PO SCH ×2 (09:05→21:11)
[2020-02-16] MEDS: FORMOTEROL INH SCH ×2 (09:05→21:11)
[2020-02-16] MEDS: DOCUSATE SODIUM 100 MG CAPSULE PO SCH ×2 (09:06→21:10)
[2020-02-16] MEDS: INSULIN GLARGINE, HUMAN 1 UNIT/0.01 ML SQ SCH (10:55)
[2020-02-16] MEDS ORDERED: WARFARIN 3 MG TABLET PO ONE (14:00)
--- NOTE | 2020-02-16 14:03 | General Surgery Progress Note ---
SUBJECTIVE Subjective Patient information: Note initiated : 02/16/20 at 1:57 pm Service Date, if different from initiated Date: [] Patient: Len Villar 69 y/o M admitted on 02/13/20 for 4 wounds on l leg, weeping edema. Chief Complaint: [] Additional PMFSH (Level 3 Only): Saw patient with CHARLEY GARAY. Left leg wounds examined. Constitutional Vitals: Vital Signs Temp Pulse Resp BP Pulse Ox 98.4 F 66 16 147/94 97 02/16/20 12:00 02/16/20 12:00 02/16/20 12:00 02/16/20 12:00 02/16/20 12:00 Period Temp Pulse Resp BP Sys/Burks Pulse Ox Last 24 Hr 97.2 F-98.4 F 56-68 16-18 112-150/60-94 95-98 Intake and Output 02/15/20 02/16/20 02/16/20 21:59 05:59 13:59 Intake Total 800 500 50 Balance 800 500 50 Weight 420 lb 14.4 oz Intake & Output: Intake & Output 02/15/20 02/16/20 02/16/20 21:59 05:59 13:59 Intake Total 800 500 50 Balance 800 500 50 Weight 420 lb 14.4 oz Intake: IV 100 50 Zosyn 3.375 gm In Dextrose 5% 100 50 in Water 50 ml @ 100 mls/hr IV Q6H [facility] Rx#:[id number] Oral 800 400 Other: Meal Dinner Percent of Meal Consumed 100% Feeding Ability Independent Urine Appearance Clear Urine Color Dark Yellow Urine Odor Normal Stool Size Smear Stool Color Brown Stool Consistency Soft # Voids 1 1 # Bowel Movements 1 Exam: AVSS. No changes BERNIE. Left leg wounds much improved with aggressive local wound care and IV antibiotics. Dense adherent slough from heel / calcaneum wounds is softer and demarcated well. Labs; Blood c/s Negative. WBC, Platelets, PRO time. Normal for patient. Cr 1.2 A/P Narrative A/P Narrative: Assessment: Satisfactory response to treatment. READY for Vers[employer] debridement of all wounds and deep tissue for c/s. Plan: Will review progress with wound care nurse, OR and Cm and co-ordinate. Time Spent With Patient Time: Total time spent is greater than 50% in coordination of care (as documented) at patient's floor/unit and/or counseling patient: Total time spent with greater than 50% in coordination of care (as documented) at patient's floor/unit and/or counseling patient:: 15 - 24 minutes
[2020-02-16] MEDS: GENTAMICIN SULFATE 40 MG, CLINDAMYCIN 300 MG, BACITRACIN 25,000 UNIT in SODIUM CHLORIDE... IRR SCH ×2 (15:04→22:09)
[2020-02-16] MEDS: MELATONIN 3 MG TABLET PO SCH (22:08)
[2020-02-16] MEDS: traZODone HCL 150 MG TABLET PO SCH (22:08)
[2020-02-17] MEDS: HYDROCODONE/APAP 7.5/325MG TABLET PO PRN ×2 (02:53→22:40)
[2020-02-17] MEDS: PIPERACILLIN SODIUM/TAZOBACTAM 3.375 GM in DEXTROSE 5% IN WATER 50 ML IV SCH ×2 (06:29)
[2020-02-17] MEDS: 0.9 % SODIUM CHLORIDE 10 ML SYRINGE IV SCH ×3 (06:30→21:12)
[2020-02-17 06:51] LABS: INR 1.6 (0.9-1.1); Prothrombin Time 19.5 sec (11.9-14.5)
--- NOTE | 2020-02-17 07:23 | Internal Med Progress Note ---
SUBJECTIVE Subjective Patient information: Note initiated : 02/17/20 at 7:21 am Service Date, if different from initiated Date: [] Patient: Len Villar 69 y/o M admitted on 02/13/20 for 4 wounds on l leg, weeping edema. Chief Complaint: [] Interval history: History of present illness: Mr. Villar is a 69 year old M Presents to the ED from wound care clinic for worsening diabetic foot wound. Patient has a left foot diabetic wound that is been seeing wound care for and when he was seen at the clinic today is found to have some worsening in erythema and purulence and cellulitic appearance and thus failing outpatient therapy. Dr. Pradhan sent him to the ED and stated he will likely need surgical I&D and IV antibiotics. Patient states he has been dealing with this for months and also it is uncomfortable at times. Denies fever chills 02/13 Supple. No new issues or complaints. Dr. Pradhan pending imaging studies before I&D. 02/14 Doing well. No new complaints. Continue mist treatments per wound care surgeon with eventual I&D. INR coming down. 02/15 Doing well. No new events overnight complaints. Creatinine 1.2. No other lab abnormalities. 02/16 No overnight event or new complaints. Possible I&D today. Review of Systems: denies headache/fever/chills/nausea/vomiting/chest or abdominal pain/cough/dyspnea/diarrhea. Otherwise see above. Constitutional Vitals: Vital Signs Temp Pulse Resp BP Pulse Ox 97.7 F 74 18 112/64 97 02/17/20 03:48 02/17/20 03:48 02/17/20 03:48 02/17/20 03:48 02/17/20 03:48 Period Temp Pulse Resp BP Sys/Burks Pulse Ox Last 24 Hr 97.7 F-98.5 F 61-74 16-18 110-147/54-94 97-98 Intake and Output 02/16/20 02/17/20 02/17/20 21:59 05:59 13:59 Intake Total 600 650 Balance 600 650 Weight 190.463 kg Intake & Output: Intake & Output 02/16/20 02/17/20 02/17/20 21:59 05:59 13:59 Intake Total 600 650 Balance 600 650 Weight 190.463 kg Intake: IV 100 50 Zosyn 3.375 gm In Dextrose 5% 100 50 in Water 50 ml @ 100 mls/hr IV Q6H [facility] Rx#:[id number] Oral 500 600 Other: Meal Dinner Percent of Meal Consumed 100% Feeding Ability Independent Urine Appearance Clear Urine Color Pale Urine Odor Normal Stool Size Moderate Large Stool Color Brown Brown Stool Consistency Soft Soft Loose Liquid # Voids 1 1 # Bowel Movements 1 1 Exam: General: Alert, Awake, No acute Distress, obese Eyes/N/T: EOMI, , Head/Neck: neck supple, CV: Regular with occasional irregularity, Pulm: Clear b/l, occasional exp wheeze, no rhonchi/rales Abd: soft, nontender, +BS x4 Ext: no clubbing/cyanosis, b/l LE mild edema, left foot in dressings Neuro: Alert, no focal deficits, moves all extremities, Skin: warm/dry OBJ DATA Labs CBC & Chem 7: 02/14/20 05:00 02/16/20 05:12 Labs: Abnormal Lab Results 02/17/20 02/16/20 02/16/20 05:03 05:12 05:12 PT 19.5 H 19.1 H INR 1.6 H 1.6 H BUN 35 H Creatinine Glucose 180 H Uric Acid Albumin Albumin/Globulin Ratio 02/15/20 02/14/20 05:21 05:00 PT 27.5 H INR 2.5 H BUN 36 H Creatinine 1.3 H Glucose 131 H Uric Acid 8.3 H Albumin 2.9 L Albumin/Globulin Ratio 0.8 L Meds: Medications Acetaminophen (Tylenol) 650 mg PO Q6HP PRN PRN Reason: PAIN/FEVER > 101 Last Admin: 02/14/20 23:55 Dose: 650 mg Documented by: Hydrocodone Bitart/Acetaminophen (Robinson 7.5/325mg) 1 tab PO Q4HP PRN; Protocol PRN Reason: Pain Last Admin: 02/17/20 02:53 Dose: 1 tab Documented by: Albuterol Sulfate (Ventolin) 2 puff INH Q4HP PRN PRN Reason: Bronchodilation Albuterol/Ipratropium (Duoneb) 3 ml NEB Q4HP PRN PRN Reason: Shortness Of Breath Aspirin (Aspirin) 81 mg PO DAILY [facility] Last Admin: 02/16/20 09:02 Dose: 81 mg Documented by: Atorvastatin Calcium (Lipitor) 80 mg PO DAILY [facility] Last Admin: 02/16/20 09:03 Dose: 80 mg Documented by: Bisacodyl (Dulcolax) 10 mg PO DAILYP PRN PRN Reason: Constipation Carvedilol (Coreg) 25 mg PO BIDCC [facility] Last Admin: 02/16/20 17:14 Dose: 25 mg Documented by: Dextrose (Dextrose 50%) 0 ml IV UD PRN PRN Reason: Hypoglycemia Diagnostic Test (Pha) (Accu-Chek) 1 each FS [facility] Last Admin: 02/16/20 21:06 Dose: 1 each Documented by: Docusate Sodium (Colace) 100 mg PO BID [facility] Last Admin: 02/16/20 21:10 Dose: Not Given Documented by: Furosemide (Lasix) 60 mg PO BIDD [facility] Last Admin: 02/16/20 15:48 Dose: 60 mg Documented by: Gabapentin (Neurontin) 100 mg PO TID [facility] Last Admin: 02/16/20 20:44 Dose: 100 mg Documented by: Glucose (Insta-Glucose) 15 gm PO PRN PRN PRN Reason: Hypoglycemia Hydralazine HCl (Apresoline) 0 mg IV Q2HP PRN PRN Reason: Hypertension Gentamicin Sulfate 40 mg/Clindamycin Phosphate 300 mg/Bacitracin 25,000 unit/ Sodium Chloride 503 mls @ 0 mls/hr IRR BID [facility] Last Admin: 02/16/20 22:09 Dose: 60 mls/hr Documented by: Potassium Chloride 40 meq/ (Dextrose) 520 mls @ 130 mls/hr IV UD PRN PRN Reason: Potassium < 3 Magnesium Sulfate (Magnesium Sulfate) 2 gm in 50 mls @ 50 mls/hr IV UD PRN PRN Reason: Magnesium </= 1.6 Piperacillin Sod/Tazobactam (Sod 3.375 gm/ Dextrose) 50 mls @ 100 mls/hr IV Q6H [facility]; Protocol Last Admin: 02/17/20 06:29 Dose: 100 mls/hr Documented by: Insulin Glargine (Lantus) 25 unit SQ DAILY [facility] Last Admin: 02/16/20 10:55 Dose: 25 units Documented by: Insulin Human Lispro (Humalog) 0 unit SQ ACHS [facility]; Protocol Last Admin: 02/16/20 21:07 Dose: 6 unit Documented by: Labetalol HCl (Trandate) 0 mg IV Q2HP PRN PRN Reason: Hypertension Lidocaine (Lmx 4, Anecream) 1 gm TOPICAL DAILYP PRN PRN Reason: Pain Magnesium Hydroxide (Milk Of Magnesia) 15 ml PO DAILYP PRN PRN Reason: Constipation Melatonin (Melatonin 3mg Tablet) 6 mg PO HS [facility] Last Admin: 02/16/20 22:08 Dose: 6 mg Documented by: Metoclopramide HCl (Reglan) 10 mg IV Q6HP PRN PRN Reason: Nausea And Vomiting Metoprolol Tartrate (Lopressor) 5 mg IV Q2HP PRN PRN Reason: Tachyarrhythmias HR>110 Ondansetron HCl (Zofran) 4 mg IV Q4HP PRN PRN Reason: Nausea And Vomiting Oxycodone HCl (Oxycontin) 10 mg PO BID [facility] Last Admin: 02/16/20 20:44 Dose: 10 mg Documented by: Budesonide- Formoterol [ Symbicort] 160-4.5 Mg/Actuation Inhaler 1 dose INH BID [facility] Last Admin: 02/16/20 21:11 Dose: Not Given Documented by: Polyethylene Glycol (Miralax) 17 gm PO BID [facility] Last Admin: 02/16/20 21:11 Dose: Not Given Documented by: Potassium Chloride (Kdur) 40 meq PO UD PRN PRN Reason: Potssium is 3-3.5 Potassium Chloride (Kdur) 40 meq PO UD PRN PRN Reason: Potassium < 3 Senna (Senokot) 2 tab PO DAILYP PRN PRN Reason: Constipation Sodium Chloride (Saline Flush) 10 ml IV Q8 [facility] Last Admin: 02/17/20 06:30 Dose: 10 ml Documented by: Spironolactone (Aldactone) 25 mg PO QDAY [facility] Last Admin: 02/16/20 09:03 Dose: 25 mg Documented by: Tizanidine HCl (Zanaflex) 2 mg PO DAILY [facility] Last Admin: 02/16/20 09:02 Dose: 2 mg Documented by: Trazodone HCl (Desyrel) 150 mg PO QHS [facility] Last Admin: 02/16/20 22:08 Dose: 150 mg Documented by: Warfarin Sodium (Coumadin Per Pharmacy) 1 order PO UD CJ A/P Narrative A/P Narrative: A: *DM Left foot wound with cellulitis and Osteomyelitis: failed outpt treatment -vascular imaging showing *?bacteremia vs contaminant, suspect contaminant, awaiting final cx: 05/25 bottles with [facility] *DM: A1c 8.2 *Morbid obesity: *COPD (not on home oxygen): *LUIS on CPAP: *Tobacco abuse: *CKD stage III: *HTN: *h/o systolic(30)/diastolic heart failure: *Atrial fibrillation: P: -Zosyn to Rocephin, PICC in morning -[facility] for I&D today and likely d/c tomorrow. -f/u with Dr. heller outpt -Place PICC line -elevate legs -cont home diuretics -basal (increased) and SSI -pt/ot -Smoking cessation counseling -ppx: warfarin per pharm Time Spent With Patient Time: Total time spent is greater than 50% in coordination of care (as documented) at patient's floor/unit and/or counseling patient:
--- NOTE | 2020-02-17 08:35 | General Surgery Progress Note ---
SUBJECTIVE Subjective Patient information: Note initiated : 02/17/20 at 8:31 am Service Date, if different from initiated Date: [] Patient: Len Villar 69 y/o M admitted on 02/13/20 for 4 wounds on l leg, weeping edema. Chief Complaint: [] Additional PMFSH (Level 3 Only): Patient seen with Dariela WHITEHEAD and progress reviewed with Dr. Wright, Hospitalist Physician. No over nite events reported. Constitutional Vitals: Vital Signs Temp Pulse Resp BP Pulse Ox 98.5 F 74 18 114/63 96 02/17/20 07:27 02/17/20 03:48 02/17/20 07:27 02/17/20 07:27 02/17/20 07:27 Period Temp Pulse Resp BP Sys/Burks Pulse Ox Last 24 Hr 97.7 F-98.5 F 61-74 16-18 110-147/54-94 96-98 Intake and Output 02/16/20 02/17/20 02/17/20 21:59 05:59 13:59 Intake Total 600 650 Balance 600 650 Weight 419 lb 14.4 oz Intake & Output: Intake & Output 02/16/20 02/17/20 02/17/20 21:59 05:59 13:59 Intake Total 600 650 Balance 600 650 Weight 419 lb 14.4 oz Intake: IV 100 50 Zosyn 3.375 gm In Dextrose 5% 100 50 in Water 50 ml @ 100 mls/hr IV Q6H [facility] Rx#:[id number] Oral 500 600 Other: Meal Dinner Percent of Meal Consumed 100% Feeding Ability Independent Urine Appearance Clear Urine Color Pale Urine Odor Normal Stool Size Moderate Large Stool Color Brown Brown Stool Consistency Soft Soft Loose Liquid # Voids 1 1 # Bowel Movements 1 1 Exam: AVSS. No changes in BERNIE. Dressings LEFT leg CDi. Edema is less. For OR debridement later this afternoon. A/P Narrative A/P Narrative: Assessment: Satisfactory progress. NO over nite events. Plan: OR debridement with Versajet and tissue cultures and biopsies. Time Spent With Patient Time: Total time spent is greater than 50% in coordination of care (as documented) at patient's floor/unit and/or counseling patient: Total time spent with greater than 50% in coordination of care (as documented) at patient's floor/unit and/or counseling patient:: less than 15 minutes
[2020-02-17] MEDS: INSULIN GLARGINE, HUMAN 1 UNIT/0.01 ML SQ SCH (10:05)
[2020-02-17] MEDS: GABAPENTIN 100 MG CAPSULE PO SCH ×3 (10:06→21:07)
[2020-02-17] MEDS: oxyCODONE 10 MG TAB.ER.12H PO SCH ×2 (10:06→21:07)
[2020-02-17] MEDS: CARVEDILOL 12.5 MG TABLET PO SCH ×2 (10:08→16:45)
[2020-02-17] MEDS: SPIRONOLACTONE 25 MG TABLET PO SCH (10:09)
[2020-02-17] MEDS: FORMOTEROL INH SCH ×2 (10:10→21:11)
[2020-02-17] MEDS: POLYETHYLENE GLYCOL 3350 17 GM PACKET PO SCH ×2 (10:10→21:11)
[2020-02-17] MEDS: ATORVASTATIN 40 MG TABLET PO SCH (10:10)
[2020-02-17] MEDS: tiZANidine 4 MG TABLET PO SCH (10:10)
[2020-02-17] MEDS: BUDESONIDE INH SCH ×2 (10:10→21:11)
[2020-02-17] MEDS: INSULIN LISPRO 1 UNIT/0.01 ML UNIT SQ SCH ×4 (10:11→21:13)
[2020-02-17] MEDS: FUROSEMIDE 20 MG TABLET PO SCH ×2 (10:11→15:40)
[2020-02-17] MEDS: DOCUSATE SODIUM 100 MG CAPSULE PO SCH ×2 (10:11→21:10)
[2020-02-17] MEDS: ASPIRIN 81 MG TAB.CHEW PO SCH (10:11)
[2020-02-17] MEDS: cefTRIAXone 2 GM in DEXTROSE 5% IN WATER 50 ML IV SCH (10:22)
--- NOTE | 2020-02-17 12:03 | Ultrasound Report ---
CLINICAL INFORMATION: nonhealing wound COMPARISON: None. FINDINGS: The attached IMPRESSION: 1. Abdominal aorta: Nonvisualized. 2. Left leg runoff: The common and external iliac artery were nonvisualized. Common femoral artery is widely patent. 75% stenosis in the mid superficial femoral artery. Scattered plaque seen throughout the remainder the superficial femoral and popliteal arteries. 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 Scattered stenoses up to 75% are seen in the anterior tibial and posttibial arteries. Suggest CT abdominal aortogram with run off. If patient cannot tolerate contrast, then a MR abdominal aortogram with run off would be adequate Interpreted and Authenticated by: Martin Robles 02/17/20
--- NOTE | 2020-02-17 13:13 | General Surgery Progress Note ---
Surgical - Auxillary Note - Subjective Patient Information: Note initiated : 02/17/20 at 1:04 pm Service Date, if different from initiated Date: [] Patient: Len Villar 69 y/o M admitted on 02/13/20 for 4 wounds on l leg, weeping edema. Chief Complaint: [Evaluation for Anesthesia Last minute addition to schedule for today, sent from clinic by Dr Van This patient has multiple serious comorbidities and exceeds the policy weight limit for non emergent surgery/procedures His wounds are chronic non healing and non emergent This patient cannot receive general anesthesia at this hospital If Dr Van wishes to proceed to the OR with this patient, he will be a local anesthetic ONLY procedure, this patient cannot receive surgical sedation safely at this hospital In addition, we have no ability to move this patient in the OR due to his weight and habitus and therefore the procedure will take place in the patients floor bed Thank you, ASIM
[2020-02-17 13:33] LABS: Appearance,Urine CLEAR; Bacteria,Urine 0 /hpf (0); Bilirubin,Urine NEG (NEG); Color,Urine YELLOW; Culture Indicated,Urine NO; Glucose,Urine (UA) NEGATIVE (NEG); Ketones,Urine NEG (NEG); Leukocyte Esterase,Urine 75 /uL (NEG); Nitrate,Urine NEG (NEG); Protein,Urine 100 mg/dL (NEG); Specific Gravity,Urine 1.019 (1.000-1.035); Urine Blood NEG mg/dL (<0.03); Urine Hyaline Cast 1 /lpf (0-2); Urine RBC 2 /hpf (0-1); Urine Squamous Epithelial Cell 1 /hpf (0-4); Urine Transitional Epi Cells < 1 /hpf (0-2); Urine WBC 4 /hpf (0-4); Urobilinogen,Urine NEG (NEG)
[2020-02-17] MEDS ORDERED: WARFARIN 3 MG TABLET PO ONE (15:00)
[2020-02-17] MEDS: GENTAMICIN SULFATE 40 MG, CLINDAMYCIN 300 MG, BACITRACIN 25,000 UNIT in SODIUM CHLORIDE... IRR SCH ×2 (15:42→21:10)
[2020-02-17] MEDS: traZODone HCL 150 MG TABLET PO SCH (21:07)
[2020-02-17] MEDS: MELATONIN 3 MG TABLET PO SCH (21:08)
[2020-02-18] MEDS: HYDROCODONE/APAP 7.5/325MG TABLET PO PRN ×3 (02:46→14:24)
[2020-02-18] MEDS: 0.9 % SODIUM CHLORIDE 10 ML SYRINGE IV SCH ×2 (04:35→14:29)
[2020-02-18 07:02] LABS: INR 1.6 (0.9-1.1); Prothrombin Time 19.8 sec (11.9-14.5)
[2020-02-18] MEDS: INSULIN LISPRO 1 UNIT/0.01 ML UNIT SQ SCH ×2 (07:23→11:47)
[2020-02-18] MEDS: cefTRIAXone 2 GM in DEXTROSE 5% IN WATER 50 ML IV SCH (07:41)
[2020-02-18 08:01] LABS: Basophils # (Auto) 0.04 K/mcL (0.00-0.30); Basophils % (Auto) 0.8 % (0.0-2.0); Eosinophils # (Auto) 0.75 K/mcL (0.00-0.70); Eosinophils % (Auto) 14.3 % (0.0-7.0); Hematocrit 36.6 % (40.1-51.0); Hemoglobin 11.6 g/dL (13.7-17.5); Lymphocytes # (Auto) 1.25 K/mcL (1.50-4.80); Lymphocytes % (Auto) 23.8 % (15.5-49.0); Mean Cell Volume 88.6 fL (80.0-100.0); Mean Corpuscular HGB Conc 31.7 g/dL (31.0-36.0); Mean Platelet Volume 10.2 fL (7.4-10.4); Monocytes # (Auto) 0.32 K/mcL (0.10-0.90); Monocytes % (Auto) 6.1 % (1.0-12.0); Platelet Count 156 K/mcL (140-440); RBC 4.13 M/mcL (4.63-6.08); Red Cell Distribution Width 15.6 % (11.5-14.5); WBC 5.3 K/mcL (4.50-11.00)
[2020-02-18 08:20] LABS: ALT/SGPT 17 U/l (0-40); AST/SGOT 13 U/l (0-37); Albumin 2.9 gm/dL (3.2-5.2); Albumin/Globulin Ratio 0.9 (1.0-2.3); Alkaline Phosphatase 88 U/L (39-117); Bilirubin,Total 0.3 mg/dL (0.0-1.0); Blood Urea Nitrogen 33 mg/dl (8-23); Calcium 9.2 mg/dl (8.6-10.4); Carbon Dioxide 25 mmol/L (22-30); Chloride 101 mmol/L (96-108); Globulin 3.3 gm/dL (2.2-3.7); Glomerular Filtration Rate 76; Glucose 148 mg/dL (70-105)
--- NOTE | 2020-02-18 08:32 | General Surgery Progress Note ---
SUBJECTIVE Subjective Patient information: Note initiated : 02/18/20 at 8:26 am Service Date, if different from initiated Date: [] Patient: Len Villar 69 y/o M admitted on 02/13/20 for 4 wounds on l leg, weeping edema. Chief Complaint: [] Additional PMFSH (Level 3 Only): Patient was seen by Dr. Mtz, Anesthesiologist AND Scheduled surgery was cancelled. Anesthesia policy to NOT operate on super morbid patient. Apart from this patient had an uneventful day and night. SAW patient on morning rounds with Dariela WHITEHEAD In Patient wound nurse. Constitutional Vitals: Vital Signs Temp Pulse Resp BP Pulse Ox 97.8 F 56 L 20 148/76 98 02/18/20 07:05 02/18/20 07:05 02/18/20 07:05 02/18/20 07:05 02/18/20 07:05 Period Temp Pulse Resp BP Sys/Burks Pulse Ox Last 24 Hr 97.4 F-98.2 F 56-82 18-22 130-168/68-83 95-98 Intake and Output 02/17/20 02/18/20 02/18/20 21:59 05:59 13:59 Intake Total 1750 225 Balance 1750 225 Weight 417 lb Intake & Output: Intake & Output 02/17/20 02/18/20 02/18/20 21:59 05:59 13:59 Intake Total 1750 225 Balance 1750 225 Weight 417 lb Intake: Oral 1100 225 GI Tube Flush 650 Other: Meal Dinner Percent of Meal Consumed 100% Feeding Ability Assist with Tray Set Up Stool Size Small Stool Color Brown Stool Consistency Loose # Voids 1 1 # Bowel Movements 1 Exam: AVSS. NO changes in BERNIE. LOCAL wound care is ongoing. A/P Narrative A/P Narrative: Assessment: Satisfactory progress with wound granulation and decrease in lymphatic drainage. Plan: OK for D/C to SNF he came from. Local wound care to continue. [facility] f/u in 1 week. OUT patient appointment to see Dr. Pichardo, Infectious Diseases at [facility] [place]. Time Spent With Patient Time: Total time spent is greater than 50% in coordination of care (as documented) at patient's floor/unit and/or counseling patient: Total time spent with greater than 50% in coordination of care (as documented) at patient's floor/unit and/or counseling patient:: 15 - 24 minutes
[2020-02-18] MEDS: ATORVASTATIN 40 MG TABLET PO SCH (09:07)
[2020-02-18] MEDS: ASPIRIN 81 MG TAB.CHEW PO SCH (09:07)
[2020-02-18] MEDS: oxyCODONE 10 MG TAB.ER.12H PO SCH (09:07)
[2020-02-18] MEDS: GENTAMICIN SULFATE 40 MG, CLINDAMYCIN 300 MG, BACITRACIN 25,000 UNIT in SODIUM CHLORIDE... IRR SCH (09:11)
[2020-02-18] MEDS: FUROSEMIDE 20 MG TABLET PO SCH (09:11)
[2020-02-18] MEDS: GABAPENTIN 100 MG CAPSULE PO SCH (09:12)
[2020-02-18] MEDS: tiZANidine 4 MG TABLET PO SCH (09:12)
[2020-02-18] MEDS: CARVEDILOL 12.5 MG TABLET PO SCH (09:12)
[2020-02-18] MEDS: SPIRONOLACTONE 25 MG TABLET PO SCH (09:12)
[2020-02-18] MEDS: INSULIN GLARGINE, HUMAN 1 UNIT/0.01 ML SQ SCH (09:13)
[2020-02-18] MEDS: DOCUSATE SODIUM 100 MG CAPSULE PO SCH (09:14)
[2020-02-18] MEDS: POLYETHYLENE GLYCOL 3350 17 GM PACKET PO SCH (09:14)
[2020-02-18] MEDS: BUDESONIDE INH SCH (09:14)
[2020-02-18] MEDS: FORMOTEROL INH SCH (09:14)
--- NOTE | 2020-02-18 09:43 | Discharge Summary ---
Discharge Provider Provider Patient information: Note initiated : 02/18/20 at 9:41 am Service Date, if different from initiated Date: [] Patient: Len Villar 69 y/o M admitted on 02/13/20 for 4 wounds on l leg, weeping edema. Chief Complaint: [] Date of admission: 02/13/20 14:41 Discharge date: 02/18/20 Primary care physician: AISSATOU Ariza Consults: 02/13/20 Consult to Physician [CONS] Stat Comment: Consulting Provider: Nilay Pradhan Reason For Exam: Physician to Consult Consult to Physician [CONS] Stat Comment: Consulting Provider: Moises Wright Reason For Exam: Physician to Consult Discharge Meds Discharge Medications Home Medications albuterol sulfate [Proventil HFA] 2 puff INHALATION Q4H PRN 02/13/20 [History Confirmed 02/13/20 Last Taken 02/13/20 2 Puffs] aspirin 81 mg PO QDAY 02/13/20 [History Confirmed 02/13/20 Last Taken 02/13/20 08:52 81 mg] atorvastatin 80 mg PO QDAY 02/13/20 [History Confirmed 02/13/20 Last Taken 02/12/20 20:30 80 mg] bisacodyl [Dulcolax (bisacodyl)] 10 mg PO PRN PRN 02/13/20 [History Confirmed 02/13/20 Last Taken Unknown] budesonide-formoterol [Symbicort] 2 puff INHALATION BID 02/13/20 [History Confirmed 02/13/20 Last Taken 02/13/20 08:52 2 Puffs] carvedilol 25 mg PO BID 02/13/20 [History Confirmed 02/13/20 Last Taken 02/13/20 08:52 25 mg] furosemide 60 mg PO BID 02/13/20 [History Confirmed 02/13/20 Last Taken 02/13/20 08:51 60 mg] gabapentin 100 mg PO TID 02/13/20 [History Confirmed 02/13/20 Last Taken 02/12/20 20:30 100 mg] hydrocodone-acetaminophen 1 tab PO Q4H PRN 02/13/20 [History Confirmed 02/13/20 Last Taken 02/13/20 02:15 1 tab] latanoprost 1 drp OPHTHALMIC (EYE) QDAY 02/13/20 [History Confirmed 02/13/20 Last Taken 02/12/20 20:30 1 gtt] lidocaine [LMX 4] 1 applic TOPICAL Q24H PRN 02/13/20 [History Confirmed 02/13/20 Last Taken Unknown] lisinopril 40 mg PO QDAY 02/13/20 [History Confirmed 02/13/20 Last Taken 02/13/20 08:52 40 mg] melatonin 5 mg PO HS 02/13/20 [History Confirmed 02/13/20 Last Taken 02/12/20 20:30 5 mg] nystatin 1 applic TOPICAL BID 02/13/20 [History Confirmed 02/13/20 Last Taken 02/12/20 20:30 1 Application] polyethylene glycol 3350 17 g PO BID 02/13/20 [History Confirmed 02/13/20 Last Taken 02/13/20 08:52 17 Grams] spironolactone 25 mg PO QDAY 02/13/20 [History Confirmed 02/13/20 Last Taken 02/13/20 08:52 25 mg] tizanidine 2 mg PO QDAY 02/13/20 [History Confirmed 02/13/20 Last Taken 02/12/20 20:30 2 mg] warfarin 8 mg PO 3XW 02/13/20 [History Confirmed 02/13/20 Last Taken 02/12/20 20:30 8 mg] warfarin See Rx Instructions .ROUTE .COMPLEX 02/13/20 [History Confirmed 02/13/20 Last Taken 02/11/20 20:30 9 mg] ciprofloxacin HCl 500 mg PO BID #20 tab 02/18/20 [Rx Last Taken Unknown] clindamycin HCl 300 mg PO Q8H #30 cap 02/18/20 [Rx Last Taken Unknown] insulin glargine [Lantus U-100 Insulin] 25 unit SQ DAILY #3 ml 02/18/20 [Rx Last Taken Unknown] insulin lispro [Humalog U-100 Insulin] See Rx Instructions .ROUTE .COMPLEX #3 ml 02/18/20 [Rx Last Taken Unknown] COURSE Hospital Course Hospital course: 1. DM Left foot wound with cellulitis and Osteomyelitis: failed outpt treatment -I&D was performed on 02/[address] Pradhan. -vascular imaging showing "Left leg runoff: The common and external iliac artery were nonvisualized. Common femoral artery is widely patent. 75% stenosis in the mid superficial femoral artery. Scattered plaque seen throughout the remainder the superficial femoral and popliteal arteries. 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 Scattered stenoses up to 75% are seen in the anterior tibial and posttibial arteries." f/u with pcp and Dr. Parker As per Dr. Pradhan, [id number] bid x 10 days and clindamycin 300mg Q8hrs x 10 days. 2. bacteremia vs contaminant, suspect contaminant, awaiting final cx (repeat Blood culture on 02/14 negtive so far): / bottles with [facility] 3. DM: A1c 8.2 4. Morbid obesity: 5. COPD (not on home oxygen): 6. LUIS on CPAP: 7. Tobacco abuse: 8. CKD stage III:- resolved 9. HTN: 10. h/o systolic(30)/diastolic heart failure: 11. Atrial fibrillation: continue carvedilol and warfarin. Mr. Villar is a 69 year old M Presents to the ED from wound care clinic for worsening diabetic foot wound. Patient has a left foot diabetic wound that is been seeing wound care for and when he was seen at the clinic today is found to have some worsening in erythema and purulence and cellulitic appearance and thus failing outpatient therapy. Dr. Pradhan sent him to the ED and stated he will likely need surgical I&D and IV antibiotics. Patient states he has been dealing with this for months and also it is uncomfortable at times. Denies fever chills 02/13 Supple. No new issues or complaints. Dr. Pradhan pending imaging studies before I&D. 02/14 Doing well. No new complaints. Continue mist treatments per wound care surgeon with eventual I&D. INR coming down. 02/15 Doing well. No new events overnight complaints. Creatinine 1.2. No other lab abnormalities. 02/16 No overnight event or new complaints. Possible I&D today. 02/17 Does not have any complaints. Conchita signs are stable. He will be discharged to SNF to follow with the PCP in 3 days, Dr. Pichardo, Infectious Diseases at [facility] in 1 week, [facility] f[facility]u in 1 week. Patient is on warfarin - dosing needed. Continue PT OT. Smoking cessation. Repeat CBC, CMP and electrolytes in 3 days and weekly afterwards. Call pcp for medical issues. Discharge diagnosis: DM Left foot wound with cellulitis and Osteomyelitis Time Spent with Patient Time attestation: Total time spent providing and/or coordinating discharge services: EXAM Constitutional Vitals: Temp Pulse Resp BP Pulse Ox 97.8 F 56 L 20 148/76 98 02/18/20 07:05 02/18/20 07:05 02/18/20 07:05 02/18/20 07:05 02/18/20 07:05 Additional findings Additional findings: General: Alert, Awake, No acute Distress, obese Eyes/N/T: EOMI, , Head/Neck: neck supple, CV: Regular with occasional irregularity, Pulm: Clear b/l, occasional exp wheeze, no rhonchi/rales Abd: soft, nontender, +BS x4 Ext: no clubbing/cyanosis, b/l LE mild edema, left foot in dressings Neuro: Alert, no focal deficits, moves all extremities, Skin: warm/dry Discharge Data Data Completed and Pending Labs on day of discharge: Labs from last 24 hours 02/18/20 02/18/20 02/18/20 07:35 07:35 05:09 WBC 5.3 RBC 4.13 L Hgb 11.6 L Hct 36.6 L MCV 88.6 MCH 28.1 MCHC 31.7 RDW 15.6 H Plt Count 156 MPV 10.2 Gran % 55.0 Lymph % (Auto) 23.8 [place] % (Auto) 6.1 Eos % (Auto) 14.3 H Baso % (Auto) 0.8 Gran # 2.90 Lymph # (Auto) 1.25 L [place] # (Auto) 0.32 Eos # (Auto) 0.75 H Baso # (Auto) 0.04 PT 19.8 H INR 1.6 H Sodium 135 Potassium 3.9 Chloride 101 Carbon Dioxide 25 Anion Gap 9.0 BUN 33 H Creatinine 1.0 GFR Calculation 76 Glucose 148 H Calcium 9.2 Total Bilirubin 0.3 AST 13 ALT 17 Alkaline Phosphatase 88 Total Protein 6.2 Albumin 2.9 L Globulin 3.3 Albumin/Globulin Ratio 0.9 L Urine Color Urine Appearance Urine pH Ur Specific [place] Urine Protein Urine Glucose (UA) Urine Ketones Urine Occult Blood Urine Nitrate Urine Bilirubin Urine Urobilinogen Ur Leukocyte Esterase Urine RBC Urine WBC Ur Squamous Epith Cells Ur Transition Epith Cell Urine Bacteria Hyaline Casts Ur Culture Indicated? SARS-CoV-2 (PCR) 02/17/20 02/17/20 11:42 10:10 WBC RBC Hgb Hct MCV MCH MCHC RDW Plt Count MPV Gran % Lymph % (Auto) [place] % (Auto) Eos % (Auto) Baso % (Auto) Gran # Lymph # (Auto) [place] # (Auto) Eos # (Auto) Baso # (Auto) PT INR Sodium Potassium Chloride Carbon Dioxide Anion Gap BUN Creatinine GFR Calculation Glucose Calcium Total Bilirubin AST ALT Alkaline Phosphatase Total Protein Albumin Globulin Albumin/Globulin Ratio Urine Color Yellow Urine Appearance Clear Urine pH 6.0 Ur Specific [place] 1.019 Urine Protein 100 A Urine Glucose (UA) Negative Urine Ketones Neg Urine Occult Blood Neg Urine Nitrate Neg Urine Bilirubin Neg Urine Urobilinogen Neg Ur Leukocyte Esterase 75 A Urine RBC 2 H Urine WBC 4 Ur Squamous Epith Cells 1 Ur Transition Epith Cell < 1 Urine Bacteria 0 Hyaline Casts 1 Ur Culture Indicated? No SARS-CoV-2 (PCR) Covid-19 negative Preliminary micro results at discharge 02/13/20 11:37 Blood Culture - Preliminary Blood 02/15/20 08:10 Blood Culture - Preliminary Blood 02/15/20 08:18 Blood Culture - Preliminary Blood 02/13/20 11:31 Blood Culture - Preliminary Blood Gram positive cocci Discharge Plan Patient/Caregiver Discharge Instructions Activity: increase activity as tolerated Diet: Consistent Carbohydrate Prescriptions: New Lantus U-100 Insulin 100 unit/mL Solution 25 unit SQ DAILY Qty: 3 RF: 0 insulin lispro [Humalog U-100 Insulin] 100 unit/mL Solution See Rx Instructions .ROUTE .COMPLEX Qty: 3 RF: 0 ciprofloxacin HCl 500 mg tablet 500 mg PO BID Qty: 20 RF: 0 clindamycin HCl 300 mg capsule 300 mg PO Q8H Qty: 30 RF: 0 Continued atorvastatin 80 mg tablet 80 mg PO QDAY RF: 0 carvedilol 25 mg tablet 25 mg PO BID RF: 0 aspirin 81 mg Tablet,Delayed Release (Dr/Ec) 81 mg PO QDAY RF: 0 bisacodyl [Dulcolax (bisacodyl)] 5 mg Tablet,Delayed Release (Dr/Ec) 10 mg PO PRN PRN (Reason: Constipation) RF: 0 furosemide 40 mg Tablet 60 mg PO BID RF: 0 latanoprost 0.005 % drops 1 drp OPHTHALMIC (EYE) QDAY RF: 0 polyethylene glycol 3350 17 gram Powder In Packet 17 g PO BID RF: 0 lidocaine [LMX 4] 4 % Cream 1 applic TOPICAL Q24H PRN (Reason: Pain) RF: 0 hydrocodone-acetaminophen 7.5-325 mg tablet 1 tab PO Q4H PRN (Reason: Pain) RF: 0 nystatin 100,000 unit/gram Cream 1 applic TOPICAL BID RF: 0 gabapentin 100 mg capsule 100 mg PO TID RF: 0 albuterol sulfate [Proventil HFA] 90 mcg/actuation Hfa Aerosol Inhaler 2 puff INHALATION Q4H PRN (Reason: Bronchodilation) RF: 0 lisinopril 40 mg tablet 40 mg PO QDAY RF: 0 melatonin 5 mg Tablet 5 mg PO HS RF: 0 tizanidine 2 mg Tablet 2 mg PO QDAY RF: 0 spironolactone 25 mg Tablet 25 mg PO QDAY RF: 0 warfarin 3 mg Tablet See Rx Instructions .ROUTE .COMPLEX RF: 0 budesonide-formoterol [Symbicort] 160-4.5 mcg/actuation Hfa Aerosol Inhaler 2 puff INHALATION BID RF: 0 warfarin 4 mg Tablet 8 mg PO 3XW RF: 0 Discontinued Basaglar KwikPen U-100 Insulin 100 unit/mL (3 mL) insulin pen 10 unit SUBCUT QDAY RF: 0 Dulcolax (bisacodyl) 10 mg .Route PRN PRN (Reason: Constipation) RF: 0 Fleet Enema 19-7 gram/118 mL Enema 118 ml NM PRN PRN (Reason: Constipation) RF: 0 oxycodone [OxyContin] 15 mg Tablet,Oral Only,Ext.Rel.12 Hr 15 mg PO Q12H RF: 0 Milk Of Magnesia Concentrated 1,200 mg PO PRN PRN (Reason: Constipation) RF: 0 acetaminophen [Tylenol] 325 mg Tablet 650 mg PO Q24H PRN (Reason: Pain) RF: 0 acetaminophen [Tylenol] 325 mg Tablet 650 mg PO QAM RF: 0 trazodone 150 mg Tablet 150 mg PO QHS RF: 0 Other Ambulatory Orders: Complete Blood Count (Routine) Timeframe: 3 Days Facility: [facility] - Location: Laboratory Ordered By: Alba Rahman Comprehensive Metabolic Panel (Routine) Timeframe: 3 Days Facility: [facility] - Location: Laboratory Ordered By: Alba Rahman Magnesium (Routine) Timeframe: 3 Days Facility: [facility] - Location: Laboratory Ordered By: Alba Rahman Wound Care Instructions (CONT) Location: None Selected Ordered By: Nilay Pradhan Follow Up Plan Follow up with: Unknown [Outside] (PCP in 3 days, Dr. Pichardo, Infectious Diseases at [facility] in 1 week, [facility] clinic f/u in 1 week. On warfarin, Dosing needed. ) Nilay Pradhan MD [Physician] - 02/25/20 9:10 am () Phu Allred ARNP [Primary Care Provider] - 02/24/20 9:45 am Len Pichardo MD [Physician] - 02/26/20 2:45 pm () Patient Disposition: Xfer SNF Prognosis: Fair Discharge Orders: Discharge Order (Routine); Ordered 02/18/20 Ordered By: Alba Rahman
[2020-02-18] MEDS ORDERED: WARFARIN 3 MG TABLET PO ONE (14:00)
== END 2020-02-18 14:25 | DRG 638 ==
LOC: ED 11:06 → MEDSUR 14:41
PROVIDERS: ADMIT Internal Medicine; ATTEND Internal Medicine